=== PATIENT | female | born 1960 | race Caucasian/White ===

== ENCOUNTER 2021-01-14 12:25 | Outpatient (REF) | payer OTHER, SELFPAY ==
[2021-01-14 14:00] LABS: MANUAL DIFF FLAG NO
[2021-01-14 14:03] LABS: Basophils Absolute Auto 0.1 X10*3/uL (0.0-0.2); Basophils Percent Auto 0.8 % (0-2); Eosinophils Absolute Auto 0.5 X10*3/uL (0.0-0.4); Eosinophils Percent Auto 4.2 % (0-4); Hematocrit 45.2 % (37-47); Hemoglobin 14.8 g/dl (12.0-16.0); Imm Gran Abs Auto 0.04 X10*3/uL (0.00-0.03); Imm Gran Pct Auto 0.3 % (0.0-0.4); Lymphocytes Absolute Auto 4.8 X10*3/uL (1.2-4.9); Lymphocytes Percent Auto 38.6 % (20-40); Mean Corpuscular HGB Conc 32.7 g/dl (31.0-35.0); Mean Corpuscular Hemoglobin 30.5 pg (27.0-33.0); Mean Platelet Volume 11.2 fL (9.4-12.3); Monocytes Absolute Auto 1.2 X10*3/uL (0.1-1.2); Monocytes Percent Auto 9.9 % (2-11); Neutrophils Absolute Auto 5.8 X10*3/uL (2.0-8.3); Neutrophils Percent Auto 46.2 % (45-73); Platelet Count 301 X10*3/uL (160-400); Red Blood Count 4.86 X10*6/uL (4.20-5.50); Red Cell Distribution Width 12.8 % (11.0-16.0); White Blood Count 12.5 X10*3/uL (4.8-10.8)
[2021-01-14 14:52] LABS: Alanine Aminotransferase 33 U/L (0-31); Albumin Level 4.3 g/dL (3.5-5.0); Alkaline Phosphatase 101 U/L (39-117); Amylase 70 U/L (28-100); Anion Gap 17 (12-20); Aspartate Amino Transferase 26 U/L (5-31); Bilirubin Total 0.8 mg/dL (0.0-1.0); Blood Urea Nitrogen 21 mg/dL (9-16); Calcium 9.8 mg/dL (8.4-10.2); Carbon Dioxide 29 mmol/L (22-29); Chloride 99 mmol/L (96-108); Estimated Glomerular Filt Rate > 60; Glucose Random 98 mg/dL (60-115); Lipase 36 U/L (8-78); Potassium 3.9 mmol/L (3.3-5.1); Sodium 141 mmol/L (135-145); Total Protein 7.4 g/dL (6.5-8.0)
== END 2021-01-14 12:26 | disposition home or self-care (01) ==
LOC: HO.HMGCLDS 12:25
PROVIDERS: PCP Internal Medicine; Visit Provider Nurse Practitioner Family
DX: R10.10 Upper abdominal pain, unspecified (principal)
CPT/HCPCS: 36415; 80053; 82150; 83690; 85025

== ENCOUNTER 2021-02-25 07:50 | Outpatient (REF) | payer OTHER, SELFPAY ==
--- NOTE | ~2021-02-25 | US_ITS ---
EXAMINATION: US ABDOMEN COMPLETE CLINICAL INFORMATION: Upper abdominal pain. COMPARISON: Ultrasound abdomen 06/27/2012. TECHNIQUE: Real-time imaging of the abdominal viscera. FINDINGS: PANCREAS: Most of the pancreas is obscured by overlying gas. ABDOMINAL AORTA: The proximal abdominal aorta is normal in caliber. The mid and distal abdominal aorta is not visualized. INFERIOR VENA CAVA: Not seen. LIVER: The liver is enlarged and size The liver is diffusely echogenic. Normal hepatic contour seen. No focal hepatic lesion. There is no intrahepatic biliary duct dilatation seen. GALLBLADDER: Surgically absent. COMMON BILE DUCT: Normal in caliber measuring 0.3 cm in diameter. RIGHT KIDNEY: There is an anechoic cyst in the mid pole lateral cortex measuring 3.0 x 3.3 x 3.2 cm. No additional lesions are seen. No hydronephrosis or renal calculi. The kidney measures 10.0 cm in maximum dimension. LEFT KIDNEY: Normal. No hydronephrosis or renal calculi. The kidney measures 9.3 cm in maximum dimension. SPLEEN: Normal. The spleen measures 7.1 cm in maximum dimension. FREE FLUID: None. US/US abdomen complete IMPRESSION: Hepatomegaly with hepatic steatosis. No focal lesion seen. Right renal cyst. The rest of the abdominal ultrasound is unremarkable.
--- NOTE | ~2021-02-25 | FL_ITS ---
EXAMINATION: FL GI SERIES CLINICAL INFORMATION: Upper abdominal pain. COMPARISON: None TECHNIQUE: Routine upper GI air-contrast study was performed. FINDINGS: Following oral administration of thick barium and effervescent granules, there is normal propagation of the bolus from the oral cavity through the upper esophagus into the stomach without any evidence of obstruction, narrowing or stricture. The course, caliber and peristalsis of the stomach and the dorsal bulb are normal. There is mild gastroesophageal reflux without hiatal hernia and in the prone lying position. Incidental finding of cholecystectomy. FLUOROSCOPY TIME: 2.1 minutes DOSE AREA PRODUCT: 34.579 uGy-m2 (microgray-meter squared) FL/FL upper GI series IMPRESSION: Mild gastroesophageal reflux without hiatal hernia. The rest of upper GI exam is unremarkable.
== END 2021-02-25 07:51 | disposition home or self-care (01) ==
LOC: HO.US 07:50
PROVIDERS: Visit Provider Internal Medicine
DX: R10.10 Upper abdominal pain, unspecified (principal)
CPT/HCPCS: 74240; 76700

== ENCOUNTER 2021-10-02 20:11 | Emergency (ER) | payer OTHER, SELFPAY ==
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
[2021-10-02 21:19] VITALS: BP 176/105; PULSE 88; RESP 20; TEMP 36.9; O2SAT 96; BMI 31.3
[2021-10-02] MEDS: Acetaminophen 325 MG TABLET 650 MG PO (21:26)
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
[2021-10-03 01:08] VITALS: BP 182/90; PULSE 70; RESP 20; TEMP 36.6; O2SAT 98
--- NOTE | 2021-10-03 01:32 | PC.NURSE ---
PT REFUSED MEDICATION AT THIS TIME RETURNED TO [facility] BECAUSE SHE HAS TO DRIVE.
== END 2021-10-03 01:34 | disposition home or self-care (01) ==
PROVIDERS: Emergency Provider Internal Medicine; PCP Internal Medicine
DX: Z04.1 Encounter for examination and observation following transport accident (principal); M62.830 Muscle spasm of back
CPT/HCPCS: 71046; 99283; 99284

== ENCOUNTER 2021-10-06 16:42 | Outpatient (REF) | payer OTHER, SELFPAY ==
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
== END 2021-10-06 16:43 | disposition home or self-care (01) ==
LOC: HO.XRAY 16:42
PROVIDERS: PCP Internal Medicine; Visit Provider Nurse Practitioner Family
DX: M54.9 Dorsalgia, unspecified (principal); M25.511 Pain in right shoulder; M89.8X1 Other specified disorders of bone, shoulder; M54.2 Cervicalgia
CPT/HCPCS: 72040; 72072; 73010; 73030

== ENCOUNTER 2022-01-26 15:26 | Outpatient (REF) | payer OTHER, SELFPAY ==
--- NOTE | ~2022-01-26 | XR_ITS ---
EXAMINATION: XR LUMBOSACRAL SPINE CLINICAL INFORMATION: Low back pain COMPARISON: None TECHNIQUE: Three views of the lumbosacral spine. FINDINGS: Bone alignment is normal. No fracture or dislocation is seen. Disc spaces are normal. 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 There is atherosclerotic disease. XR/XR lumbar spine 2-3V IMPRESSION: Mild degenerative changes.
== END 2022-01-26 15:27 | disposition home or self-care (01) ==
LOC: HO.XRAY 15:26
PROVIDERS: PCP Internal Medicine; Visit Provider Nurse Practitioner Family
DX: M54.50 Low back pain, unspecified (principal)
CPT/HCPCS: 72100

== ENCOUNTER → 2022-02-19 16:03 | Outpatient (BNVA) | payer OTHER, SELFPAY | PROVIDERS: PCP Internal Medicine; Visit Provider Nurse Practitioner Family | DX: Z13.89 Encounter for screening for other disorder (principal) ==

== ENCOUNTER 2022-07-03 09:10 | Outpatient (REF) | payer OTHER, SELFPAY ==
--- NOTE | ~2022-07-03 | MM_ITS ---
EXAMINATION: MM SCREENING DIGITAL BREAST TOMOSYNTHESIS, BILATERAL CLINICAL INFORMATION: Screening. Asymptomatic. The lifetime risk of breast cancer based on the Tyrer-Cuzick Model is 5%. COMPARISON: Mammography: 09/05/2019, 02/25/2017, 12/06/2015 TECHNIQUE: Digital breast tomosynthesis is performed in both the craniocaudal and mediolateral oblique views along with computer-aided detection (CAD). Synthesized 2D images are generated from the tomosynthesis. FINDINGS: There are scattered areas of fibroglandular density (ACR BI-RADS breast composition Category b). There are no significant masses, abnormal calcifications, or other abnormalities. Parenchymal pattern is similar to prior studies. There is no developing density or architectural abnormality. The axilla and skin contours are unremarkable. No significant changes. MM/MM tomosynthesis screening BI IMPRESSION: No mammographic evidence of malignancy. ASSESSMENT: BI-RADS 1: Negative RECOMMENDATION: Routine annual mammography screening. This patient's information was entered into a reminder system with a target due date for their next mammogram.
== END 2022-07-03 09:11 | disposition home or self-care (01) ==
LOC: HO.MAMMO 09:10
PROVIDERS: PCP Internal Medicine; Visit Provider Internal Medicine
DX: Z12.31 Encounter for screening mammogram for malignant neoplasm of breast (principal)
CPT/HCPCS: 77063; 77067

== ENCOUNTER → 2022-12-16 15:30 | Outpatient (BNVA) | payer OTHER, SELFPAY | PROVIDERS: PCP Internal Medicine; Visit Provider Internal Medicine | DX: Z13.89 Encounter for screening for other disorder (principal) ==

== ENCOUNTER 2022-12-28 12:56 | Outpatient (REF) | payer OTHER, SELFPAY ==
--- NOTE | 2022-12-28 18:09 | PFT_ITS ---
INDICATION: COPD. SPIROMETRY: FEV1 to FVC 80% with an FEV1 1.46 L, which is 79% predicted and FVC of 1.79 L, which is 74% predicted. There was a significant response to bronchodilator is noted. Maximum voluntary ventilation is 75% predicted with expiratory reserve volume of 4% predicted. DIFFUSION CAPACITY: DLCO 94% predicted. COMPARISONS: None. INTERPRETATION: No obstructive ventilatory defects. The patient did have a significant response to bronchodilators noted. In addition to, there is a moderate decrease in maximum voluntary ventilation secondary to deconditioning, although cannot rule out neuromuscular conditions. The patient does have a restrictive ventilatory defect consistent with mild restrictive lung disease. Again, neuromuscular condition cannot be ruled out. Parenchymal lung condition could also be considered. Normal diffusing capacity. Clinical correlation is warranted. Riley Duffy MD MR/MODL / [id number]
== END 2022-12-28 12:57 | disposition home or self-care (01) ==
LOC: HO.RESP 12:56
PROVIDERS: PCP Internal Medicine; Visit Provider Internal Medicine
DX: J44.9 Chronic obstructive pulmonary disease, unspecified (principal); Z87.891 Personal history of nicotine dependence
CPT/HCPCS: 94060; 94727; 94729

== ENCOUNTER → 2023-01-25 15:29 | Outpatient (BNVA) | payer OTHER, SELFPAY | PROVIDERS: PCP Internal Medicine; Visit Provider Nurse Practitioner Family | DX: Z13.89 Encounter for screening for other disorder (principal) ==

== ENCOUNTER → 2023-02-23 15:54 | Outpatient (BNVA) | payer OTHER, SELFPAY | PROVIDERS: PCP Internal Medicine; Visit Provider Internal Medicine | DX: Z13.89 Encounter for screening for other disorder (principal) ==

== ENCOUNTER 2023-03-09 06:55 | Outpatient (REF) | payer OTHER, SELFPAY ==
[2023-03-09 07:10] LABS: MANUAL DIFF FLAG NO
[2023-03-09 07:21] LABS: Basophils Absolute Auto 0.1 X10*3/uL (0.0-0.2); Basophils Percent Auto 0.8 % (0-2); Eosinophils Absolute Auto 0.9 X10*3/uL (0.0-0.4); Hematocrit 41.8 % (37.0-47.0); Hemoglobin 13.9 g/dl (12.0-16.0); Imm Gran Abs Auto 0.03 X10*3/uL (0.00-0.03); Imm Gran Pct Auto 0.2 % (0.0-0.4); Lymphocytes Absolute Auto 4.9 X10*3/uL (1.2-4.9); Mean Corpuscular HGB Conc 33.3 g/dl (31.0-35.0); Mean Corpuscular Hemoglobin 30.3 pg (27.0-33.0); Mean Corpuscular Volume 91.1 fL (80.0-98.0); Monocytes Percent Auto 8.1 % (2-11); Neutrophils Absolute Auto 5.4 x10*3/uL (2.0-8.3); Neutrophils Percent Auto 43.9 % (45-73); Platelet Count 319 X10*3/uL (160-400); Red Blood Count 4.59 X10*6/uL (4.20-5.50); Red Cell Distribution Width 13.6 % (11.0-16.0); White Blood Count 12.3 X10*3/uL (4.8-10.8)
[2023-03-09 08:00] LABS: Alanine Aminotransferase 47 U/L (0-31); Albumin Level 3.9 g/dL (3.5-5.0); Alkaline Phosphatase 111 U/L (39-117); Anion Gap 13 (12-20); Aspartate Amino Transferase 34 U/L (5-31); Bilirubin Total 0.5 mg/dL (0.0-1.0); Blood Urea Nitrogen 19 mg/dL (9-16); Calcium 9.3 mg/dL (8.4-10.2); Carbon Dioxide 29 mmol/L (22-29); Chloride 103 mmol/L (96-108); Cholesterol 269 mg/dL; Estimated Glomerular Filt Rate 58; Glucose Fasting 128 mg/dL (60-99); HDL Cholesterol 44 mg/dL; Iron 103 mcg/dL (30-160); LDL Cholesterol Calculated 165 mg/dl; Percent Iron Saturation 45 % (15-50); Potassium 3.7 mmol/L (3.3-5.1); Sodium 141 mmol/L (135-145); Total Iron Binding Capacity 228 mcg/dL (228-428); Total Protein 7.1 g/dL (6.5-8.0); Triglycerides 300 mg/dL; Unsaturated Iron Binding 125 ug/dL
[2023-03-09 08:31] LABS: Folate > 20.0 ng/mL (> or = 4.0); Thyroid Stimulating Hormone 1.81 uIU/mL (0.32-4.0); Vitamin B12 1085 pg/mL (200-900); Vitamin D 25-OH Total 51.8 ng/mL (>30)
== END 2023-03-09 06:56 | disposition home or self-care (01) ==
LOC: HO.LAB 06:55
PROVIDERS: PCP Internal Medicine; Visit Provider Internal Medicine
DX: D64.9 Anemia, unspecified (principal); E78.5 Hyperlipidemia, unspecified; I10 Essential (primary) hypertension; E66.9 Obesity, unspecified; Z68.32 Body mass index [BMI] 32.0-32.9, adult; E53.8 Deficiency of other specified B group vitamins; E55.9 Vitamin D deficiency, unspecified
CPT/HCPCS: 36415; 80053; 80061; 82306; 82607; 82746; 83540; 84443; 85025

== ENCOUNTER → 2023-06-03 14:48 | Outpatient (BNV) | payer OTHER, SELFPAY | PROVIDERS: PCP Internal Medicine; Referring Provider Internal Medicine; Visit Provider Internal Medicine | DX: D72.829 Elevated white blood cell count, unspecified (principal) | CPT/HCPCS: 99204; 99213 ==

== ENCOUNTER 2023-06-07 13:36 | Outpatient (REF) | payer OTHER, SELFPAY ==
[2023-06-08 11:59] LABS: CT PCR NOT DETECTED (Not Detect.); NG PCR NOT DETECTED (Not Detect.)
[2023-06-09 20:48] LABS: HPV mRNA E6/E7 rflx Not Detected (Not Detected)
== END 2023-06-07 13:37 | disposition home or self-care (01) ==
LOC: HO.LNP 13:36
PROVIDERS: PCP Internal Medicine; Visit Provider Advanced Practice Midwife
DX: Z01.419 Encounter for gynecological examination (general) (routine) without abnormal findings (principal); Z11.51 Encounter for screening for human papillomavirus (HPV); Z20.2 Contact with and (suspected) exposure to infections with a predominantly sexual mode of transmission
CPT/HCPCS: 0353U; 87624; 88142

== ENCOUNTER 2023-06-07 13:36 | Outpatient (AMB) | payer OTHER, SELFPAY ==
--- NOTE | 2023-06-07 13:39 | MHC.OFFVIS ---
Intake Vital Signs 06/07/23 13:40 Height 4 ft 10 in Weight 164 lb BMI 34.3 BP 116/74 Intake Visit Reasons: New patient Annual Intake Note: The patient agreed to use of a medical investigator during this encounter. Scribed for SOPHY James by Theresa Patricia medical investigator, on 06/07/2023 at 1:57 pm EST. Family Reunification Specialist Required: No Information Interpreted: non-clinical & clinical Hot Dipper: Hot Dipper Present (Sierra) Allergies Anesthetics - Amide Type - Select A Allergy (Severe, Verified 06/07/23 13:45) Redness of Skin lisinopril Allergy (Unknown, Verified 06/07/23 13:45) pain in thighs Is last menstrual period known: No Post menopausal: Yes Patient : No HPI HPI Comments History of Present Illness Details She is a new patient postmenopausal woman presenting for annual exam. Patient admits she tries to eat a healthy diet including Calcium and Vitamin D. She stays active with exercise. Occasionally sexually active. Denies PMB, vaginal itching and irritation. STD screening offered; she accepts. Denies family hx of breast, colon and ovarian cancer. Last pap smear 08/15/14. Last mammogram 07/03/22. Not UTD on colonoscopy but is planning to schedule. PFSH Medical History Allergic rhinitis Benign essential HTN Low kidney function Sciatic nerve pain Smoking history Surgical History History of section History of cholecystectomy History of tonsillectomy History of tubal ligation Hx of colonoscopy Family History Father Diabetes Hypertension CVD (cardiovascular disease) Mother Diabetes Hypertension CAD (coronary artery disease) Stroke Maternal Aunt Myocardial infarction Paternal Aunt Cancer Paternal Uncle Cancer Son No problems noted. Daughter No problems noted. Social History Household Members: None Housing: House Alcohol intake: current Alcohol intake frequency: a few times a month Alcohol type: beer Patient Tobacco Use Status: Former Tobacco user Tobacco use type: Cigarette e-Cigarette/Vaping Use: Never Used Second Hand Smoke Exposure: No Substance Use Type: Marijuana service: No Current occupational status: employed Current occupational exposures/hazards: No Cognitive needs: No Hearing needs: No Vision needs: Yes Female Reproductive History Menstrual Duration of menses: other control method: permanent sterilization Permanent Sterilization: BTL Total pregnancies: 3 Full term: 2 Number of Living Children: 2 Ab induced: 1 (stillborn @6months) Date of last pap smear: 08/15/14 (neg) Date of Mammogram: 07/03/22 (Birad 1) Physical Exam Vital Signs: Last Vital Signs BP 116/74 06/07/23 13:40 BMI result Body Mass Index 34.3 Const General: cooperative, healthy appearing, no acute distress, well developed and alert Orientation/consciousness: patient oriented x3 HEENT Head: Yes normal to inspection Eyes General: appearance normal, both eyes and all related structures Neck Neck: Yes normal visual inspection Thyroid: Thyroid normal Chest Chest palpation & inspection: normal inspection of the chest Breast/axilla inspection: normal inspection of the breasts (no puckering, dimpling, peau de orange, retraction, discharge, masses) Breast/axilla palpation: normal palpation of the breasts Resp Effort & Inspection: normal respiratory effort GI Inspection: Yes normal to inspection Palpation (GI): Soft to palpation (to palpation) Rectal Exam - Female: deferred General: Yes bladder normal to inspection External Female Exam: normal external appearance and normal appearance of the urethra Speculum Exam - Vagina: normal appearance of the vagina, normal palpation and vagina atrophic Speculum Exam - Cervix: normal appearance of the cervix and normal palpation Bimanual exam- vagina & uterus: normal palpation and normal palpation Bimanual Exam- Adnexa, other: normal adnexae and no masses Skin General skin exam: no rashes or lesions noted Neuro General: patient oriented x3 Cognition (Neuro): normal cognition Extrem General: Yes normal to inspection Psych Attitude: cooperative Thought process: Normal thought process present Assessment & Plan Assessment & Plan (1) Encounter for well woman exam: Code(s): Z01.419 - Encounter for gynecological examination (general) (routine) without abnormal findings Plan: Discussed: Current recommendations for pap smears per ASCCP guidelines. Breast awareness and periodic self breast exams. Encouraged yearly mammograms. Maintaining a healthy lifestyle including a well balanced diet including Calcium and Vitamin D and routine exercise. Contact office with any PMB. All of her questions and concerns were addressed to the best of my ability RTO in 1 year for AG. (2) Potential exposure to STD: Code(s): Z20.2 - Contact with and (suspected) exposure to infections with a predominantly sexual mode of transmission Plan: BV testing and GC/CT panel done today. Await results and treat accordingly. Orders: Orders CT NG by PCR Today Z20.2 - Contact with and (suspected) exposure to infections with a predominantly sexual mode of transmission Pap Smear Today Z01.419 - Encounter for gynecological examination (general) (routine) without abnormal findings Quality Reporting (2019) Adult ([facility] 138/12/15/68) Smoking risk assessment performed?: Yes Patient Tobacco Use Status: Former Tobacco user Coding Level of Care Code New Pt Prev Care 40-64y(81183) Diagnoses Encounter for well woman exam Z01.419 Potential exposure to STD Z20.2
[2023-06-07 13:40] VITALS: BP 116/74; BMI 34.3
== END 2023-06-07 14:08 | disposition home or self-care (01) ==
LOC: HO.HWS 13:36
PROVIDERS: PCP Internal Medicine; Visit Provider Advanced Practice Midwife
DX: Z01.419 Encounter for gynecological examination (general) (routine) without abnormal findings (principal); Z20.2 Contact with and (suspected) exposure to infections with a predominantly sexual mode of transmission
CPT/HCPCS: 99397

== ENCOUNTER 2023-06-09 17:00 | Outpatient (RCR) | payer OTHER, SELFPAY ==
--- NOTE | 2023-05-13 12:28 | MHC.PT.EP ---
[facility] [place] Office [place] [facility] [place] Office [address] David Magana [address] [phone] F: [phone] F: [phone] F: [phone] F: [phone] Physical Therapy Plan of Care Date of Evaluation: Date of Surgery: Diagnosis: lumbar radiculopathy (R) Assessment: Patient is a pleasant 63 y.o. female who is referred to PT by Félix Lance PA-C with Dx of (RIGHT) lumbar radiculopathy. Patient symptoms respond well to extension bias with centralization. Patient impairments include pain, radicular sxs, limited AROM, weakness, antalgic gait. Patient current functional limitations are prolonged sitting, prolonged walking, sleep is difficult (sleeps on L side), bend, squat, putting on pants, standing to shower. Patient will benefit from skilled PT to address aforementioned impairments and functional limitations to meet established goals. Frequency and Duration: The patient will be seen 2x/week for 4 weeks Short Term Goals: 2 weeks Patient demonstrates consistency and independence with HEP to self manage symptoms. Patient is able to perform and demonstrate understanding of centralization of lumbar radicular symptoms with postures and exercises. Enterprise Application Developer Goals: 4 weeks Patient presents with increased lumbar spine AROM flexion 90 degrees to restore mobility to squat to low chair. Patient presents with increased bilateral hip flexion stretch 5/5 to be able to shower without difficulty. Treatment Plan: Modalities to reduce pain, spasms and effusion. Manual therapy to restore motion and function. Therapeutic exercise to improve strength and flexibility. Neuromuscular re-education for posture and balance. Therapeutic activities to return to functional activities of daily living. Electronically signed by: Keren Butcher, PT, DPT Please sign and return to therapist. Thank you for your referral.
--- NOTE | 2023-08-02 12:06 | MHC.PT.DC ---
[facility] [place] Office [place] Office [place] Office [address] David Magana [address] [phone] F: [phone] F: [phone] F: [phone] F: [phone] Physical Therapy Discharge Report Diagnosis: lumbar radiculopathy (R) Date of Surgery: Date of Evaluation: 05/12/23 Date of Discharge: 08/02/23 Treatments to Date: 3 Cancellations to Date: 4 No Shows to Date: 0 Discharge Status: Improved Function Independent with HEP Discharge Summary: Patient was last treated in PT on 06/09/23. Assessment from that date reads, She has been consistent with both HEP and postural/positional changes at work to avoid stress to low back and discs. She persists with hypomobility throughout lumbar spine, more on R that improves with both moist heat and manual therapy mobilizations. May discharge next session if she continues to improve without sxs and feels she can be independent with self and home management. She is therefore discharged from PT at this time. Electronically signed by: Keren Butcher, PT, DPT Please sign and return to therapist. Thank you for your referral.
== END 2023-08-02 12:07 | disposition home or self-care (01) ==
LOC: HO.PT 17:00
PROVIDERS: PCP Internal Medicine; Visit Provider Physician Assistant
DX: M51.9 Unspecified thoracic, thoracolumbar and lumbosacral intervertebral disc disorder (principal); M54.16 Radiculopathy, lumbar region
CPT/HCPCS: 97110; 97140; 97161

== ENCOUNTER 2023-06-14 17:02 | Outpatient (AMB) | payer OTHER, SELFPAY ==
--- NOTE | 2023-06-14 17:04 | A.OFFPC_ITS ---
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: No Accompanied by: Self / Same As Patient Allergies Anesthetics - Amide Type - Select A Allergy (Severe, Verified 06/14/23 17:12) Redness of Skin lisinopril Allergy (Unknown, Verified 06/14/23 17:12) pain in thighs Medication List - Last Reconciled 06/14/23 by Terri Manuel MD albuterol sulfate 2.5 mg (3 mL) PO Q4-6H PRN atenolol 50 mg PO DAILY atorvastatin 20 mg PO BEDTIME 90 days fexofenadine (Abimbola Allergy) 60 mg PO Q12H hydrochlorothiazide 25 mg PO DAILY 90 days hydrocortisone 1% (Anti-Itch (hydrocortisone)) 1 appl topical TID PRN 30 days nebulizers (AeroEclipse II Nebulizer) As directed Tobacco use date assessed: 11/09/22 Fall risk assessment: No Falls in past year Last assessed Fall Risk: 06/14/23 Dental Screening Dental Screen Date: 06/14/23 Did you have a dental visit in the last 12 months?: No Did you have a dental problem in the last 6 months where you did not have access to dental care?: No Was dental information given to patient?: Patient has dentist HPI HPI Comments History of Present Illness Details This is a 63-year-old female with hypertension, allergic rhinitis, chronic kidney disease and mixed hyperlipidemia that comes today for follow-up on recent labs. Blood pressure elevated today and will be recheck in 3 weeks by nurse navigator. Cholesterol and triglycerides well controlled with medications. Allergic rhinitis stable with antihistamines as needed. Her GFR has decreased and now has chronic kidney disease stage 3 and will be referred to Nephrology. Was advised to follow-up with nephrology. PFSH Medical History Allergic rhinitis Benign essential HTN Low kidney function Sciatic nerve pain Smoking history Surgical History History of section History of cholecystectomy History of tonsillectomy History of tubal ligation Hx of colonoscopy Family History Father Diabetes Hypertension CVD (cardiovascular disease) Mother Diabetes Hypertension CAD (coronary artery disease) Stroke Maternal Aunt Myocardial infarction Paternal Aunt Cancer Paternal Uncle Cancer Son No problems noted. Daughter No problems noted. Social History Household Members: None Housing: House Alcohol intake: current Alcohol intake frequency: a few times a month Alcohol type: beer Patient Tobacco Use Status: Former Tobacco user Tobacco use type: Cigarette e-Cigarette/Vaping Use: Never Used Second Hand Smoke Exposure: No Substance Use Type: Marijuana service: No Current occupational status: employed Current occupational exposures/hazards: No Cognitive needs: No Hearing needs: No Vision needs: Yes Questionnaire Thrive Questionnaire Date Thrive assessed: 11/09/22 RIYA-7 AMB Questionnaire RIYA-7 Date RIYA - 7 assessed: 11/09/22 Source: Developed by Drs. Leoncio Fuentes, Laura Negrete, Dusty Matias and colleagues, with an educational greta from [employer]. Review of Systems Const All systems reviewed & are unremarkable except as noted in HPI and below Eyes Reports no additional complaints, Denies change in vision and Denies other visual disturbances Card Denies chest pain at rest, Denies chest pain with activity, Denies edema, Denies irregular heart rhythm, Denies claudication, Denies dyspnea, Denies dyspnea on exertion, Denies orthopnea, Denies paroxysmal nocturnal dyspnea and Denies slow heart rate Resp Denies cough, Denies dyspnea and Denies dyspnea on exertion GI Denies abdominal pain, Denies change in bowel habits, Denies excessive flatus, Denies nausea and Denies vomiting Denies urinary incontinence, Denies urinary hesitancy and Denies urinary urgency Musc Denies atrophy, Denies deformity and Denies limited range of motion Skin/Breast Denies bleeding lesions, Denies changing lesions and Denies rash Physical exam (Primary Care) Vital Signs: Last Vital Signs BP 148/72 H 06/14/23 17:06 BMI result Body Mass Index 33.6 Tobacco/Smoking Status: Tobacco use Status Tobacco use date assessed 11/09/22 06/14/23 17:06 Patient Tobacco Use Status Former Tobacco user 06/14/23 17:06 Tobacco use type Cigarette 06/14/23 17:06 e-Cigarette/Vaping Use Never Used 06/14/23 17:06 Thrive Assessment: Date of Thrive Assessment Date Thrive assessed 11/09/22 06/14/23 17:06 Eyes General: appearance normal, both eyes and all related structures Eyelids: Yes eyelids normal Conjunctivae: conjunctivae normal Neck Neck: Yes normal visual inspection and Yes supple Resp Effort & Inspection: normal respiratory effort Auscultation: clear to auscultation bilaterally Cardio Jugular venous distension: no JVD Rate: regular rate Rhythm: regular rhythm Heart sounds: S1 normal heart sound present and S2 normal heart sound present Extrem General: Yes full ROM Assessment and Plan Assessment & Plan (1) Essential hypertension: Code(s): I10 - Essential (primary) hypertension Plan: Continue atenolol and hydrochlorothiazide. Blood pressure goal is equal or less than 130/80. (2) CKD (chronic kidney disease) stage 3, GFR 30-59 ml/min: Code(s): N18.30 - Chronic kidney disease, stage 3 unspecified Plan: Avoid NSAIDs. Follow-up with nephrology. (3) Mixed hyperlipidemia: Code(s): E78.2 - Mixed hyperlipidemia Plan: Continues statin. (4) Allergic rhinitis: Comment: MILD, SEASONAL, WELL CONTROLLED AT THIS TIME. TX: MAY USE FEXOFENADINE 60 MG Q.12 HOURS P.R.N. Code(s): J30.9 - Allergic rhinitis, unspecified Plan: Continue antihistamines as needed. Orders: Referrals Nephrology Referral N18.30 - Chronic kidney disease, stage 3 unspecified Coding Level of Care Code Est Pt Level 4 (33297) Diagnoses Essential hypertension I10 CKD (chronic kidney disease) stage 3, GFR 30-59 ml/min N18.30 Mixed hyperlipidemia E78.2 Allergic rhinitis J30.9 Time Spent (min) 23
[2023-06-14 17:06] VITALS: BP 148/72; BMI 33.6
[2023-06-14 17:25] VITALS: BP 140/70
== END 2023-06-14 17:20 | disposition home or self-care (01) ==
PROVIDERS: PCP Internal Medicine; Visit Provider Internal Medicine
DX: I12.9 Hypertensive chronic kidney disease with stage 1 through stage 4 chronic kidney disease, or unspecified chronic kidney disease (principal); N18.30 Chronic kidney disease, stage 3 unspecified; E78.2 Mixed hyperlipidemia; J30.9 Allergic rhinitis, unspecified
CPT/HCPCS: 99214

== ENCOUNTER 2023-07-30 08:55 | Outpatient (REF) | payer OTHER, SELFPAY | END 2023-07-30 08:56 | disposition home or self-care (01) | LOC: HO.MAMMO 08:55 | PROVIDERS: Visit Provider Internal Medicine | DX: Z12.31 Encounter for screening mammogram for malignant neoplasm of breast (principal) | CPT/HCPCS: 77063; 77067 ==

== ENCOUNTER → 2023-07-30 09:00 | Outpatient (BNV) | payer OTHER, SELFPAY | PROVIDERS: Visit Provider Radiology Diagnostic Radiology | DX: Z12.31 Encounter for screening mammogram for malignant neoplasm of breast (principal) | CPT/HCPCS: 77063; 77067 ==

== ENCOUNTER 2023-09-06 15:59 | Outpatient (AMB) | payer OTHER, SELFPAY ==
[2023-09-06 16:00] VITALS: BP 132/78; PULSE 62; O2SAT 98; BMI 32.6
--- NOTE | 2023-09-06 16:00 | MHC.OFFVIS ---
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 Allergies Anesthetics - Amide Type - Select A Allergy (Severe, Verified 09/06/23 16:18) Redness of Skin lisinopril Allergy (Unknown, Verified 09/06/23 16:18) pain in thighs Medication List - Last Reconciled 09/06/23 by Vivian Egan MD albuterol sulfate 2.5 mg (3 mL) PO Q4-6H PRN atenolol 50 mg PO DAILY atorvastatin 20 mg PO BEDTIME 90 days hydrochlorothiazide 25 mg PO DAILY 90 days hydrocortisone 1% (Anti-Itch (hydrocortisone)) 1 appl topical TID PRN 30 days nebulizers (AeroEclipse II Nebulizer) As directed Do you need a note to return to daycare/school/sports/work: No HPI copd HPI Details THIS 63 YEARS OLD VERY PLEASANT FEMALE IS HERE FOR 6 MONTHS FOLLOW-UP FOR HER BRONCHIAL ASTHMA. SHE HAS BEEN VERY STABLE WITHOUT ANY INCREASE HER SYMPTOMS. SHE HAS ONLY INTERMITTENT COUGH AND WHEEZING, WHICH IS CONTROLLED WITH USE OF ALBUTEROL IN THE NEBULIZER OR ALBUTEROL HFA. SHE NEEDS TO USE THE NEBULIZER OR HFA ONLY ONCE IN A WHILE ABOUT 2 OR 3 TIMES A WEEK SHE DENIES GETTING SHORT OF BREATH ON HER USUAL DAY-TO-DAY ACTIVITY OR EVEN CLIMBING 1 FLIGHT OF STAIRS. [facility] Medical History (Updated 09/06/23 @ 16:23 by Vivian Egan MD) Asthma Low kidney function Allergic rhinitis Smoking history Sciatic nerve pain Benign essential HTN Surgical History Hx of colonoscopy History of section History of tubal ligation History of cholecystectomy History of tonsillectomy Family History Father Diabetes Hypertension CVD (cardiovascular disease) Mother Diabetes Hypertension CAD (coronary artery disease) Stroke Maternal Aunt Myocardial infarction Paternal Aunt Cancer Paternal Uncle Cancer Son No problems noted. Daughter No problems noted. Social History Household Members: None Housing: House Alcohol intake: current Alcohol intake frequency: a few times a month Alcohol type: beer Patient Tobacco Use Status: Former Tobacco user Tobacco use type: Cigarette e-Cigarette/Vaping Use: Never Used Second Hand Smoke Exposure: No Substance Use Type: Marijuana service: No Current occupational status: employed Current occupational exposures/hazards: No Cognitive needs: No Hearing needs: No Vision needs: Yes Review of Systems Const All systems reviewed & are unremarkable except as noted in HPI and below Eyes Reports no additional complaints ENT Reports no additional complaints and Reports neck pain Card Denies chest pain, Denies irregular heart rhythm and Denies leg edema Resp Reports as per HPI GI Reports no additional complaints Reports no additional complaints Musc Reports back pain and Reports neck pain Skin/Breast Reports system reviewed and no additional complaints, except as documented Neuro Reports no additional complaints Psych Reports no additional complaints Endo Reports no additional complaints Demarcus/Lymph Reports no additional complaints Aller/Immun Reports no additional complaints Physical Exam Const General: healthy appearing, comfortable, no acute distress, alert and awake Orientation/consciousness: patient oriented x3 HEENT Head: Yes normal to inspection General nose exam: No nasal polyps present, mucous membranes and turbinates abnormal (SLIGHTLY HYPERTROPHIED) and No nasal discharge present Face and sinus: Yes sinuses nontender Mouth: oropharynx normal Throat: Yes posterior oropharynx normal Eyes General: appearance normal, both eyes and all related structures Neck Neck: Yes normal visual inspection, Yes no lymphadenopathy, Yes trachea midline and Yes no JVD Thyroid: Thyroid normal Chest Other: INCREASED AP DIAMETER Chest palpation & inspection: normal inspection of the chest, normal palpation of entire chest wall and no tenderness Resp Other: PERCUSSION NOTE IS RESONANT. BREATH SOUNDS ARE SLIGHTLY DISTANT . NO CREPITATIONS OR WHEEZES ARE HEARD. Cardio Palpation: normal PMI Rate: regular rate Rhythm: regular rhythm Heart sounds: Gallop heart sound present and Murmur heart sound present Peripheral pulses: Peripheral pulses 2+ throughout GI Palpation (GI): Soft to palpation, Tenderness to palpation present (GI), No hepatosplenomegaly present and Palpable mass present Auscultation: normal bowel sounds Back/Spine/Pelvis Thoracic/Lumbar Spine: thoracic and lumbar spine normal to inspection and thoraco-lumbar ROM limited Skin General skin exam: no rashes or lesions noted Neuro General: patient oriented x3 and no focal motor deficits Cranial nerves: Yes CN's II-XII intact bilaterally Extrem General: Yes normal to inspection, Yes no clubbing, cyanosis or edema and Yes no calf tenderness Psych Appearance: grossly normal and well kempt Speech and movement: Normal speech and movement present Assessment & Plan Assessment & Plan (1) Allergic rhinitis: Comment: MILD, SEASONAL, WELL CONTROLLED AT THIS TIME. TX: MAY USE FEXOFENADINE 60 MG Q.12 HOURS P.R.N. Code(s): J30.9 - Allergic rhinitis, unspecified (2) Asthma: Comment: MILD INTERMITTENT. TX: ALBUTEROL HFA 2 PUFFS Q 4-6 HOURS P.R.N. OR ALBUTEROL 2.5 MG SOLUTION IN THE NEBULIZER Q 4-6 HOURS P.R.N. SHE DOES NOT NEED TO USE ANY CONTROLLER AGENTS. Code(s): J45.909 - Unspecified asthma, uncomplicated (3) Smoking history: Comment: PATIENT HAS LONG-STANDING HISTORY OF SMOKING. SHE HAS QUIT COMPLETELY , SINCE EARLY THIS YEAR. Code(s): Z87.891 - Personal history of nicotine dependence Quality Reporting (2019) Adult ([facility] 138/12/15/68) Smoking risk assessment performed?: Yes Patient Tobacco Use Status: Former Tobacco user Coding Level of Care Code Est Pt Level 3 (39976) Diagnoses Allergic rhinitis J30.9 Asthma J45.909 Smoking history Z87.891
== END 2023-09-06 16:19 | disposition home or self-care (01) ==
PROVIDERS: PCP Internal Medicine; Visit Provider Internal Medicine
DX: J30.9 Allergic rhinitis, unspecified (principal); J45.909 Unspecified asthma, uncomplicated; Z87.891 Personal history of nicotine dependence
CPT/HCPCS: 99213

== ENCOUNTER → 2023-09-06 15:59 | Outpatient (BNVA) | payer OTHER, SELFPAY | PROVIDERS: PCP Internal Medicine; Visit Provider Internal Medicine ==

== ENCOUNTER 2023-10-11 14:44 | Outpatient (REF) | payer OTHER, SELFPAY ==
--- NOTE | ~2023-10-11 | US_ITS ---
EXAMINATION: US RETROPERITONEAL LIMITED (RENAL ONLY) CLINICAL INFORMATION: Chronic kidney disease, stage 3b. COMPARISON: Ultrasound abdomen complete 02/25/2021. TECHNIQUE: Real-time imaging of the kidneys. FINDINGS: RIGHT KIDNEY: 9.9 x 4.7 x 4.1 cm (SAG x AP x TRV). The kidney is normal in size and echogenicity. Renal cortical thickness is normal. No renal calculi or hydronephrosis. Multiple hypoechoic simple cysts are seen. The largest cyst is seen in left mid kidney measuring 2.6 x 2.9 x 3.0 cm in size (previously 3.0 x 3.3 x 3.2 cm). LEFT KIDNEY: 8.6 x 4.7 x 3.5 cm (SAG x AP x TRV). The kidney is normal in size and echogenicity. Renal cortical thickness is normal. No renal calculi or hydronephrosis. Multiple simple cysts are seen with the largest cyst found in mid left renal cortex measuring 1.0 x 0.8 x 0.7 cm in size. US/US renal BI IMPRESSION: 1. Persistent multiple right and left renal cortical simple cysts, for which no follow up imaging is recommended. 2. No evidence of hydronephrosis.
== END 2023-10-11 14:45 | disposition home or self-care (01) ==
LOC: HO.US 14:44
PROVIDERS: PCP Internal Medicine; Visit Provider Internal Medicine Nephrology
DX: N18.32 Chronic kidney disease, stage 3b (principal)
CPT/HCPCS: 76775

== ENCOUNTER 2023-11-14 15:46 | Outpatient (AMB) | payer OTHER, SELFPAY ==
[2023-11-14 15:50] VITALS: BP 110/60; BMI 31.3
--- NOTE | 2023-11-14 15:50 | A.OFFPC_ITS ---
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 Accompanied by: Self / Same As Patient Allergies Anesthetics - Amide Type - Select A Allergy (Severe, Verified 11/14/23 16:21) Redness of Skin lisinopril Allergy (Unknown, Verified 11/14/23 16:21) pain in thighs Medication List - Last Reconciled 11/14/23 by Terri Manuel MD albuterol sulfate 2.5 mg (3 mL) PO Q4-6H PRN atenolol 50 mg PO DAILY atorvastatin 20 mg PO BEDTIME 90 days hydrochlorothiazide 25 mg PO DAILY 90 days hydrocortisone 1% (Anti-Itch (hydrocortisone)) 1 appl topical TID PRN 30 days nebulizers (AeroEclipse II Nebulizer) As directed Tobacco use date assessed: 11/14/23 Fall risk assessment: No Falls in past year Last assessed Fall Risk: 11/14/23 Dental Screening Dental Screen Date: 11/14/23 Did you have a dental visit in the last 12 months?: No Did you have a dental problem in the last 6 months where you did not have access to dental care?: No Was dental information given to patient?: Patient has dentist HPI HPI Comments History of Present Illness Details This is a 63-year-old female that comes for her physical exam. Last mammogram was 2022 and was normal. Last Pap smear was 2022 and was normal. Last colonoscopy was at 48 years old and she needs another colonoscopy. No chest pain or shortness of breath. [facility] Medical History (Updated 11/14/23 @ 16:51 by Terri Manuel MD) CKD (chronic kidney disease) stage 3, GFR 30-59 ml/min Asthma Low kidney function Allergic rhinitis Smoking history Sciatic nerve pain Benign essential HTN Surgical History Hx of colonoscopy History of section History of tubal ligation History of cholecystectomy History of tonsillectomy Family History (Updated 11/14/23 @ 16:25 by Terri Manuel MD) Father Diabetes Hypertension CVD (cardiovascular disease) Mother Diabetes Hypertension CAD (coronary artery disease) Stroke Maternal Aunt Myocardial infarction Paternal Aunt Cancer Paternal Uncle Cancer Son No problems noted. Daughter No problems noted. Sister Diabetes CHF (congestive heart failure) Social History (Updated 11/14/23 @ 16:26 by Terri Manuel MD) Household Members: None Housing: House Alcohol intake: current Alcohol intake frequency: holidays/special occasions only Alcohol type: beer and wine Patient Tobacco Use Status: Former Tobacco user Tobacco use type: Cigarette e-Cigarette/Vaping Use: Never Used Second Hand Smoke Exposure: No Substance Use Type: Marijuana service: No Current occupational status: employed Current occupational exposures/hazards: No Cognitive needs: No Hearing needs: No Vision needs: Yes Questionnaire PHQ-9 Over the last 2 weeks, how often have you been bothered by any of the following problems? 1. Little interest or pleasure in doing things: several days 2. Feeling down, depressed, or hopeless: several days 3. Trouble falling or staying asleep, or sleeping too much: several days 4. Feeling tired or having little energy: nearly every day 5. Poor appetite or overeating: not at all 6. Feeling bad about yourself - or that you are a failure or have let yourself or your family down: not at all 7. Trouble concentrating on things, such as reading the newspaper or watching television: several days 8. Moving or speaking so slowly that other people could have noticed. Or the opposite - being so fidgety or restless that you have been moving around a lot more than usual: not at all 9. Thoughts that you would be better off or of hurting yourself in some way: not at all Total score: 7 Depression Screening Interpretation: Positive Depression Screening Follow-up: Existing condition Depression Screening Done: Yes 82947 - PHQ-9 Billing: Yes Source: Developed by Drs. Leoncio Fuentes, Laura Negrete, Dusty Matias and colleagues, with an educational greta from [employer]. Thrive Questionnaire Date Thrive assessed: 11/14/23 I am a: Patient What is your living situation today?: I have a steady place to live Within the past 12 months, did the food you bought not last and you didn't have the money to get more?: Never true Within the past 12 months, did you worry whether your food would run out before you got money to buy more?: Never true Do you have trouble paying for medicines?: No Do you have trouble getting transportation to medical appointments?: No Do you have trouble paying your heating and electricity bill?: No Do you have trouble taking care of your child, family member or friend?: No Do you have trouble with day-to-day activities such as bathing, preparing meals, shopping, managing finances, etc.?: No Are you currently unemployed and looking for a job?: No Are you interested in more education?: No Please select the resources that you would like help with: None Currently or been in a relationship where the following occur: no concerns reported THRIVE Score: 0 AUDIT C Alcohol Use Questionnaire (AUDIT-C) 1. How often do you have a drink containing alcohol?: Monthly or less 2. How many drinks containing alcohol do you have on a typical day when you are drinking?: 1 or 2 3. How often do you have six or more drinks on one occasion?: Never Total Score: 1 Score Reviewed/Action Taken: No RIYA-7 AMB Questionnaire RIYA-7 Date RIYA - 7 assessed: 11/14/23 Feeling nervous, anxious, or on edge: 1 = Several days Not being able to stop or control worryin = Not at all Worrying too much about different things: 1 = Several days Trouble relaxin = Not at all Being so restless that it is hard to sit still: 0 = Not at all Becoming easily annoyed or irritable: 1 = Several days Feeling afraid as if something awful might happen: 0 = Not at all Total RIYA-7 score (0-4 normal; 5-9 mild; 10-14 moderate; 15-21 severe): 3 Source: Developed by Drs. Leoncio Fuentes, Laura Negrete, Dusty Matias and colleagues, with an educational greta from [employer]. RIYA-7 Assessment Billing RIYA-7 Assessment Tool: RIYA-7 Assessment 19910 Review of Systems Const All systems reviewed & are unremarkable except as noted in HPI and below Eyes Reports no additional complaints, Denies change in vision and Denies other visual disturbances Card Denies chest pain at rest, Denies chest pain with activity, Denies edema, Denies irregular heart rhythm, Denies claudication, Denies dyspnea, Denies dyspnea on exertion, Denies orthopnea, Denies paroxysmal nocturnal dyspnea and Denies slow heart rate Resp Denies cough, Denies dyspnea and Denies dyspnea on exertion GI Denies abdominal pain, Denies change in bowel habits, Denies excessive flatus, Denies nausea and Denies vomiting Denies urinary incontinence, Denies urinary hesitancy and Denies urinary urgency Musc Denies abnormal gait, Denies atrophy, Denies deformity and Denies limited range of motion Skin/Breast Denies bleeding lesions, Denies changing lesions and Denies rash Neuro Denies abnormal gait, Denies behavioral changes, Denies confusion and Denies lack of coordination Psych Denies behavioral changes and Denies confusion Physical exam (Primary Care) Vital Signs: Last Vital Signs BP 110/60 11/14/23 15:50 BMI result Body Mass Index 31.3 Tobacco/Smoking Status: Tobacco use Status Tobacco use date assessed 11/14/23 11/14/23 15:58 Patient Tobacco Use Status Former Tobacco user 11/14/23 16:26 Tobacco use type Cigarette 11/14/23 16:26 e-Cigarette/Vaping Use Never Used 11/14/23 16:26 PHQ-9: PHQ-9 Score PHQ-9: Total score 7 11/14/23 16:27 Depression Screening Interpretation: Positive Depression Screening Follow-up: Existing condition Thrive Assessment: Date of Thrive Assessment Date Thrive assessed 11/14/23 11/14/23 15:58 Currently or been in a relationship where the following occur: no concerns reported Const General: No confusion Orientation/consciousness: patient oriented x3 and No confusion HENMT Head: Yes normal to inspection, Yes normocephalic and Yes atraumatic Ears: external ears normal Eyes General: appearance normal, both eyes and all related structures Eyelids: Yes eyelids normal Conjunctivae: conjunctivae normal Neck Neck: Yes normal visual inspection and Yes supple Resp Effort & Inspection: normal respiratory effort Auscultation: clear to auscultation bilaterally Cardio Jugular venous distension: no JVD Rate: regular rate Rhythm: regular rhythm Heart sounds: S1 normal heart sound present and S2 normal heart sound present GI Inspection: Yes normal to inspection Palpation (GI): Soft to palpation and nontender Auscultation: normal bowel sounds Skin General skin exam: no rashes or lesions noted Neuro General: patient oriented x3, no focal motor deficits and No confusion Extrem General: Yes full ROM Psych Appearance: grossly normal Assessment and Plan Assessment & Plan (1) Physical exam: Code(s): Z00.00 - Encounter for general adult medical examination without abnormal findings Plan: Repeat in a year. Orders: Orders Comprehensive [place]. Panel Fast 6 Months Z00.00 - Encounter for general adult medical examination without abnormal findings Lipid Panel 6 Months E78.5 - Hyperlipidemia, unspecified Referrals Open Access Screening Colonoscopy Referral Z00.00 - Encounter for general adult medical examination without abnormal findings, Z12.11 - Encounter for screening for malignant neoplasm of colon Medications: New umeclidinium-vilanterol 62.5-25 mcg/actuation (Anoro Ellipta) 1 inh inhalation DAILY 60 ea 3RF 30 days Coding Level of Care Code Est Pt Prev Care >65y(62121) Diagnoses Physical exam Z00.00 Additional Codes RIYA-7 Assessment Billing - RIYA-7 Assessment Tool: RIYA-7 Assessment 52446 ([id number]) Time Spent (min) 32
== END 2023-11-14 16:35 | disposition home or self-care (01) ==
PROVIDERS: Visit Provider Internal Medicine
DX: Z00.00 Encounter for general adult medical examination without abnormal findings (principal)
CPT/HCPCS: 99397

== ENCOUNTER 2024-02-08 11:21 | Outpatient (REF) | payer OTHER, SELFPAY ==
[2024-02-08 12:28] LABS: Appearance Urine Clear; Color Urine Yellow; Glucose Urine UA Negative (Negative); Leukocyte Esterase Urine Trace (Negative); Nitrite Urine Negative (Negative); Specific Gravity - Urine 1.015 (1.005-1.025); UMIC TRIGGER UA YES; Urine Blood Negative (Negative); Urine Ketones Negative (Negative); Urine Protein Negative (Neg-Trace)
[2024-02-08 12:36] LABS: Bacteria Urine None Seen (None Seen); RBC Urine 0-2 /HPF (0-2); WBC Urine 0-5 /HPF (0-5)
[2024-02-08 12:50] LABS: Creatinine Urine 112.15 mg/dL; Microalbum/Creatinine Ratio Ur 9.8 ug/mg cr (<30); Protein/Creatinine Ratio, Ur 0.08 (<0.2); Total Protein Urine Random 9 mg/dL (<12)
[2024-02-08 12:52] LABS: Blood Urea Nitrogen 26 mg/dL (9-16); Calcium 9.5 mg/dL (8.4-10.2); Estimated Glomerular Filt Rate 52
[2024-02-08 14:14] LABS: Anion Gap 11 (12-20); Carbon Dioxide 30 mmol/L (22-29); Chloride 102 mmol/L (96-108); Potassium 2.9 mmol/L (3.3-5.1); Sodium 140 mmol/L (135-145)
== END 2024-02-08 11:22 | disposition home or self-care (01) ==
LOC: HO.LAB 11:21
PROVIDERS: PCP Internal Medicine; Visit Provider Student in an Organized Health Care Education/Training Program
DX: N18.32 Chronic kidney disease, stage 3b (principal)
CPT/HCPCS: 36415; 80051; 81001; 82043; 82310; 82565; 82570; 84156; 84520

== ENCOUNTER 2024-03-08 16:00 | Outpatient (AMB) | payer OTHER, SELFPAY ==
[2024-03-08 16:10] VITALS: BP 120/70; PULSE 57; O2SAT 97; BMI 30.5
--- NOTE | 2024-03-08 16:10 | MHC.OFFVIS ---
Vital Signs 03/08/24 16:10 Height 4 ft 10 in Weight 146 lb BMI 30.5 BP 120/70 Blood Pressure Location Lt brachial Position Sitting Pulse 57 Pulse Source Pulse Oximeter Pulse Oximetry (%) 97 Oxygen Delivery Method Room Air Intake Visit Reasons: copd Intake Note: pt is here for follow up and states she is on a new inhaler for wheezing by pcp [employer] Required: No Allergies Anesthetics - Amide Type - Select A Allergy (Severe, Verified 03/08/24 16:23) Redness of Skin lisinopril Allergy (Unknown, Verified 03/08/24 16:23) pain in thighs Medication List - Last Reconciled 03/08/24 by Vivian Egan MD albuterol sulfate 2.5 mg (3 mL) PO Q4-6H PRN atenolol 50 mg PO DAILY atorvastatin 20 mg PO BEDTIME 90 days hydrochlorothiazide 25 mg PO DAILY 90 days hydrocortisone 1% (Anti-Itch (hydrocortisone)) 1 appl topical TID PRN 30 days nebulizers (AeroEclipse II Nebulizer) As directed potassium chloride ER 8 mEq PO DAILY 5 days umeclidinium-vilanterol 62.5-25 mcg/actuation (Anoro Ellipta) 1 inh inhalation DAILY Do you need a note to return to daycare/school/sports/work: No HPI HPI copd: Details: 63 years old very pleasant female comes after 6 months for follow-up. She claims that the breathing has been very good and stable. Has had occasional feeling of wheezing. Lately was started on Anoro Ellipta which she uses 1 inhalation daily. She uses albuterol in the nebulizer but only once in a while She does not smoke cigarettes, but smokes marijuana only off and on not on a daily basis. [facility] Medical History CKD (chronic kidney disease) stage 3, GFR 30-59 ml/min Asthma Low kidney function Allergic rhinitis Smoking history Sciatic nerve pain Benign essential HTN Surgical History Hx of colonoscopy History of section History of tubal ligation History of cholecystectomy History of tonsillectomy Family History Father Diabetes Hypertension CVD (cardiovascular disease) Mother Diabetes Hypertension CAD (coronary artery disease) Stroke Maternal Aunt Myocardial infarction Paternal Aunt Cancer Paternal Uncle Cancer Son No problems noted. Daughter No problems noted. Sister Diabetes CHF (congestive heart failure) Social History Household Members: None Housing: House Alcohol intake: current Alcohol intake frequency: holidays/special occasions only Alcohol type: beer and wine Patient Tobacco Use Status: Former Tobacco user Tobacco use type: Cigarette e-Cigarette/Vaping Use: Never Used Second Hand Smoke Exposure: No Substance Use Type: Marijuana service: No Current occupational status: employed Current occupational exposures/hazards: No Cognitive needs: No Hearing needs: No Vision needs: Yes Review of Systems Const All systems reviewed & are unremarkable except as noted in HPI and below Eyes Reports no additional complaints ENT Reports no additional complaints and Reports neck pain Card Denies chest pain, Denies irregular heart rhythm and Denies leg edema Resp Reports as per HPI GI Reports no additional complaints Reports no additional complaints Musc Reports back pain and Reports neck pain Skin/Breast Reports system reviewed and no additional complaints, except as documented Neuro Reports no additional complaints Psych Reports no additional complaints Endo Reports no additional complaints Demarcus/Lymph Reports no additional complaints Aller/Immun Reports no additional complaints Physical Exam Vital Signs: Last Vital Signs Pulse 57 03/08/24 16:10 BP 120/70 03/08/24 16:10 Pulse Ox 97 03/08/24 16:10 Oxygen Delivery Method Room Air 03/08/24 16:10 BMI result Body Mass Index 30.5 Const General: healthy appearing, comfortable, no acute distress, alert and awake Orientation/consciousness: patient oriented x3 HEENT Head: Yes normal to inspection General nose exam: No nasal polyps present, mucous membranes and turbinates abnormal (SLIGHTLY HYPERTROPHIED) and No nasal discharge present Face and sinus: Yes sinuses nontender Mouth: oropharynx normal Throat: Yes posterior oropharynx normal Eyes General: appearance normal, both eyes and all related structures Neck Neck: Yes normal visual inspection, Yes no lymphadenopathy, Yes trachea midline and Yes no JVD Thyroid: Thyroid normal Chest Other: INCREASED AP DIAMETER Chest palpation & inspection: normal inspection of the chest, normal palpation of entire chest wall and no tenderness Resp Other: PERCUSSION NOTE IS RESONANT. BREATH SOUNDS ARE SLIGHTLY DISTANT . NO CREPITATIONS BUT A FEW SCATTERED WHEEZES OVER THE LEFT UPPER CHEST. Cardio Palpation: normal PMI Rate: regular rate Rhythm: regular rhythm Heart sounds: Gallop heart sound present and Murmur heart sound present Peripheral pulses: Peripheral pulses 2+ throughout GI Palpation (GI): Soft to palpation, Tenderness to palpation present (GI), No hepatosplenomegaly present and Palpable mass present Auscultation: normal bowel sounds Back/Spine/Pelvis Thoracic/Lumbar Spine: thoracic and lumbar spine normal to inspection and thoraco-lumbar ROM limited Skin General skin exam: no rashes or lesions noted Neuro General: patient oriented x3 and no focal motor deficits Cranial nerves: Yes CN's II-XII intact bilaterally Extrem General: Yes normal to inspection, Yes no clubbing, cyanosis or edema and Yes no calf tenderness Psych Appearance: grossly normal and well kempt Speech and movement: Normal speech and movement present Quality Reporting (2019) Adult ([facility] 138/12/15/68) Smoking risk assessment performed?: Yes Patient Tobacco Use Status: Former Tobacco user Assessment & Plan Assessment & Plan (1) Allergic rhinitis: Comment: MILD, SEASONAL, WELL CONTROLLED AT THIS TIME. Code(s): J30.9 - Allergic rhinitis, unspecified Category: Medical Plan: [place]: MAY USE FEXOFENADINE 60 MG Q.12 HOURS P.R.N. (2) Smoking history: Comment: PATIENT HAS LONG-STANDING HISTORY OF SMOKING. SHE HAS QUIT COMPLETELY , SINCE 2022 . NOW SHE SMOKES MARIJUANA BUT NOT EVERY DAY Code(s): Z87.891 - Personal history of nicotine dependence Category: Social Hx Plan: COMMENDED FOR NOT SMOKING ANYMORE. ALSO AVOID SMOKING MARIJUANA . ON A DAILY BASIS (3) COPD (chronic obstructive pulmonary disease): Comment: SHE DOES HAVE SYMPTOMS OF MILD SHORTNESS OF BREATH AND OCCASIONAL WHEEZING. ALL CLEARED WITH USE OF LONG-ACTING INHALER. AT PRESENT SHE IS USING ANORO ELLIPTA ONCE A DAY , AND STAYING VERY STABLE. Code(s): J44.9 - Chronic obstructive pulmonary disease, unspecified Category: Medical Plan: OK TO USE ANORO ELLIPTA 1 INHALATION DAILY. ALBUTEROL SOLUTION IN THE NEBULIZER Q 4-6 HOURS ONLY P.R.N.. OR ALTERNATIVELY MAY USE ALBUTEROL HFA 2 PUFFS Q 4-6 HOURS P.R.N. Coding Level of Care Code Est Pt Level 3 (54141) Diagnoses Allergic rhinitis J30.9 Smoking history Z87.891 COPD (chronic obstructive pulmonary disease) J44.9
== END 2024-03-08 16:21 | disposition home or self-care (01) ==
PROVIDERS: PCP Internal Medicine; Visit Provider Internal Medicine
DX: J30.9 Allergic rhinitis, unspecified (principal); Z87.891 Personal history of nicotine dependence; J44.9 Chronic obstructive pulmonary disease, unspecified
CPT/HCPCS: 99213

== ENCOUNTER → 2024-03-08 16:00 | Outpatient (BNVA) | payer OTHER, SELFPAY | PROVIDERS: PCP Internal Medicine; Visit Provider Internal Medicine ==

== ENCOUNTER 2024-04-03 16:16 | Outpatient (AMB) | payer OTHER, SELFPAY ==
--- NOTE | 2024-04-03 16:18 | MHC.OFFVIS ---
Vital Signs 04/03/24 16:24 Height 4 ft 10 in Weight 144 lb 9.972 oz BMI 30.2 BP 118/64 Blood Pressure Location Lt brachial Position Sitting Pulse 64 Pulse Source Pulse Oximeter Pulse Oximetry (%) 96 Oxygen Delivery Method Room Air Intake Visit Reasons: Elevation of levels of liver transaminase levels Intake Note: Shirley presents in office today for a scheduled FUV. CC; Pt is here to discuss recent lab values. Pt denies any new concerns or sx at this time. Pt reports that they have been increasing their fluid intake as well as making dietary changes. 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 Patient reports allergy to amide type anesthetic. Denies any history of sleep apnea.? No history infectious diseases in the past or present.? Not on any anticoagulation therapy.? No family or personal history of colon cancer or polyps.? Patient denies melena, hematochezia, unintentional weight loss or ribbon like stools.? Discussed at length the pre-procedure,? prep, diet & medications as well as what to expect prior, during and after the procedure.?? Stressed the importance of good bowel prep. ?Recommended the use of Vaseline or Calmoseptine OTC & baby wipes with bowel movements to promote comfort.? Patient verbalizes understanding and agrees to plan of care.? She was given the opportunity to ask questions and all questions answered.? We will see her after the procedure.? TODAY'S VISIT: Patient was sent by PCP for elevation in liver enzymes. Mild elevation in her liver enzymes in July. Levels were not repeated. No ultrasound ordered for this. Patient denies any abdominal pain or discomfort. Was seen last year in January and was supposed to go for colonoscopy. Unsure why that appointment was never scheduled. Patient denies any abdominal pain or discomfort. Nothing changed since last visit. Patient denies any dyspepsia, dysphagia or odynophagia. Patient denies any melena, hematochezia, unintentional weight loss or ribbon like stools. Patient denies any family history of liver disease. [facility] Medical History CKD (chronic kidney disease) stage 3, GFR 30-59 ml/min Asthma Low kidney function Allergic rhinitis Smoking history Sciatic nerve pain Benign essential HTN Surgical History Hx of colonoscopy History of section History of tubal ligation History of cholecystectomy History of tonsillectomy Family History Father Diabetes Hypertension CVD (cardiovascular disease) Mother Diabetes Hypertension CAD (coronary artery disease) Stroke Maternal Aunt Myocardial infarction Paternal Aunt Cancer Paternal Uncle Cancer Son No problems noted. Daughter No problems noted. Sister Diabetes CHF (congestive heart failure) Social History Household Members: None Housing: House Alcohol intake: current Alcohol intake frequency: holidays/special occasions only Alcohol type: beer and wine Patient Tobacco Use Status: Former Tobacco user Tobacco use type: Cigarette e-Cigarette/Vaping Use: Never Used Second Hand Smoke Exposure: No Substance Use Type: Marijuana service: No Current occupational status: employed Current occupational exposures/hazards: No Cognitive needs: No Hearing needs: No Vision needs: Yes Review of Systems Const Denies weight gain and Denies weight loss ENT Reports no additional complaints, Denies dysphagia and Denies odynophagia Card Reports no additional complaints Resp Reports no additional complaints GI Denies abdominal pain, Denies belching, Denies melena, Denies bloating, Denies change in bowel habits, Denies dysphagia, Denies excessive flatus, Denies dyspepsia, Denies heartburn, Denies diarrhea, Denies loose stools, Denies nausea, Denies odynophagia and Denies vomiting Musc Reports no additional complaints Neuro Reports no additional complaints Psych Reports no additional complaints Endo Reports no additional complaints Physical Exam Vital Signs: Last Vital Signs Pulse 64 04/03/24 16:24 BP 118/64 04/03/24 16:24 Pulse Ox 96 04/03/24 16:24 Oxygen Delivery Method Room Air 04/03/24 16:24 BMI result Body Mass Index 30.2 Const General: healthy appearing and no acute distress Nutritional Appearance: obese Orientation/consciousness: patient oriented x3 Resp Effort & Inspection: normal respiratory effort, able to speak in complete sentences, no tracheal deviation and symmetric chest movement Auscultation: clear to auscultation bilaterally Cardio Rate: regular rate GI Inspection: Yes normal to inspection, No distended and Yes obesity Palpation (GI): Soft to palpation, not firm, nontender and No hepatosplenomegaly present Auscultation: normal bowel sounds General: Yes no CVA tenderness Back/Spine/Pelvis Back: no CVA tenderness Skin General skin exam: elasticity normal, turgor normal and dry skin Neuro General: patient oriented x3 Psych Appearance: grossly normal Mental Status: mental status grossly normal Quality Reporting (2019) Adult ([facility] 138/12/15/68) Smoking risk assessment performed?: Yes Patient Tobacco Use Status: Former Tobacco user Assessment & Plan Assessment & Plan (1) Transaminitis: Code(s): R74.01 - Elevation of levels of liver transaminase levels Category: Medical (2) Screen for colon cancer: Code(s): Z12.11 - Encounter for screening for malignant neoplasm of colon Category: Medical Plan Will send message to surgical scheduled to schedule colonoscopy for patient. Patient was sent to us for transaminitis. Mild increase in liver enzymes back in July. No levels repeated since then. Patient denies drinking alcohol. She is not taking any Tylenol. No significant weight gain in the past few months. Patient actually lost 10 lb since last year I saw her. Will repeat liver panel, A1c and will send patient for abdominal ultrasound with elastography. I will see her in 3 months, sooner on as needed basis. She is agreeable to this plan and verbalizes understanding of instructions. She was given the opportunity to ask questions and all questions answered. Thank you for allowing me to participate in her care Orders: Orders Hemoglobin A1c 04/03/24 E11.9 - Type 2 diabetes mellitus without complications Liver Panel 04/03/24 R74.01 - Elevation of levels of liver transaminase levels US abdomen reno w elastography 04/03/24 R74.01 - Elevation of levels of liver transaminase levels Coding Level of Care Code Est Pt Level 4 (57235) Diagnoses Transaminitis R74.01 Screen for colon cancer Z12.11 Time Spent (min) 35 Comment 20 minutes spent with patient and additional 15 minutes spent reviewing her records
[2024-04-03 16:24] VITALS: BP 118/64; PULSE 64; O2SAT 96; BMI 30.2
== END 2024-04-03 16:48 | disposition home or self-care (01) ==
PROVIDERS: PCP Internal Medicine; Visit Provider Nurse Practitioner Family
DX: R74.01 Elevation of levels of liver transaminase levels (principal); Z12.11 Encounter for screening for malignant neoplasm of colon
CPT/HCPCS: 99214

== ENCOUNTER → 2024-04-03 16:16 | Outpatient (BNVA) | payer OTHER, SELFPAY | PROVIDERS: PCP Internal Medicine; Visit Provider Nurse Practitioner Family ==

== ENCOUNTER 2024-04-13 09:50 | Outpatient (REF) | payer OTHER, SELFPAY ==
--- NOTE | ~2024-04-13 | US_ITS ---
EXAMINATION: US ABDOMEN LIMITED WITH LIVER ELASTOGRAPHY CLINICAL INFORMATION: Elevated liver transaminase levels. COMPARISON: None available. TECHNIQUE: Real-time imaging of the abdominal viscera. Noninvasive ultrasound liver fibrosis assessment is performed using Faraz ElastPQ point quantification shear wave elastography (2D-SWE) with a C5-2 MHz transducer. Multiple elastography samples are obtained. FINDINGS: PANCREAS: Normal. The visualized pancreatic head and body are normal in appearance. The remainder of the pancreas is obscured from visualization by the overlying bowel gas. LIVER: The liver demonstrates normal size, contour and increased echogenicity. No focal lesion or intrahepatic biliary duct dilatation. The right lobe measures 14.3 cm in length. The left lobe measures 10.0 cm in length. Portal flow is towards the liver (hepatopetal). Shear wave liver elastography median stiffness is 1.33 m/s (reference: normal median stiffness is 1.3 m/s or less). IQR/median stiffness to assess sampling precision is 0.25 (reference: good quality data set is IQR/median stiffness of 0.15 or less). GALLBLADDER: Surgically absent. COMMON BILE DUCT: Normal in caliber measuring 0.4 cm in diameter. RIGHT KIDNEY: At the upper pole, an 8 mm benign, simple cyst is seen. At the interpolar aspect, there are 2.9 cm and 1.2 cm benign, simple cysts. These require no imaging follow-up. No hydronephrosis. No renal calculi or focal parenchymal lesions. The kidney measures 10.3 cm in maximum dimension. FREE FLUID: None. US/US abdomen reno w elastography IMPRESSION: 1. There is generalized increase in hepatic echotexture, consistent with fatty infiltration or hepatocellular disease. Please correlate clinically. No focal hepatic mass or intrahepatic biliary dilatation is seen. 2. Liver elastography: Although measurements appear to rule out compensated advanced chronic liver disease, there is statistical variability of the sampling which decreases accuracy. 3. The gallbladder is surgically absent. REFERENCE: Society of Radiologists in Ultrasound Liver Stiffness Thresholds (2020): LIVER STIFFNESS THRESHOLDS: *Liver Stiffness equal or less than 1.3 m/s: High probability of being normal. *Liver Stiffness less than 1.7 m/s: In the absence of other known clinical signs, rules out compensated advanced chronic liver disease. *Liver Stiffness 1.7-2.1 m/s: Suggestive of compensated advanced chronic liver disease but need further test for confirmation. *Liver Stiffness over 2.1 m/s: Rules in compensated advanced chronic liver disease. *Liver Stiffness over 2.4 m/s: Suggestive of clinically significant portal hypertension. QUALITY OF DATA SET: *IQR/Median value equal or less than 0.15 implies a quality data set. *IQR/Median value over 0.15 implies a poor quality data set. SIGNIFICANT CHANGE FROM PRIOR EXAM: Significant change if liver stiffness measurement is 10% or greater from prior exam. OTHER CONSIDERATIONS: The stage of liver fibrosis may be overestimated in the setting of acute hepatitis, liver inflammation, elevated liver function tests, hepatic vascular congestion, obstructive cholestasis, non-fasting state, and infiltrative diseases such as amyloidosis and lymphoma. In some patients with NAFLD, the liver stiffness thresholds for compensated advanced chronic liver disease may be lower. In causes other than viral hepatitis and NAFLD, liver stiffness thresholds are not well established.
[2024-04-13 12:09] LABS: Estimated Average Glucose 123 mg/dL; Hemoglobin A1c % 5.9 % (<6.0)
[2024-04-13 12:34] LABS: Alanine Aminotransferase 19 U/L (0-31); Alkaline Phosphatase 102 U/L (39-117); Anion Gap 10 (12-20); Aspartate Amino Transferase 21 U/L (5-31); Bilirubin Direct 0.2 mg/dL (0.0-0.5); Bilirubin Total 0.8 mg/dL (0.0-1.0); Blood Urea Nitrogen 32 mg/dL (9-16); Calcium 9.6 mg/dL (8.4-10.2); Carbon Dioxide 30 mmol/L (22-29); Chloride 104 mmol/L (96-108); Estimated Glomerular Filt Rate > 60; Glucose Random 96 mg/dL (60-115); Potassium 3.3 mmol/L (3.3-5.1); Sodium 141 mmol/L (135-145); Total Protein 7.6 g/dL (6.5-8.0)
== END 2024-04-13 09:51 | disposition home or self-care (01) ==
LOC: HO.US 09:50
PROVIDERS: Absent Provider Internal Medicine; PCP Internal Medicine; Visit Provider Nurse Practitioner Family
DX: R74.01 Elevation of levels of liver transaminase levels (principal); E11.9 Type 2 diabetes mellitus without complications; E87.6 Hypokalemia
CPT/HCPCS: 36415; 76705; 76981; 80053; 80076; 82248; 83036

== ENCOUNTER 2024-05-15 16:10 | Outpatient (AMB) | payer BC, SELFPAY ==
--- NOTE | 2024-05-15 16:23 | A.OFFPC_ITS ---
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 Accompanied by: Self / Same As Patient Allergies Anesthetics - Amide Type - Select A Allergy (Severe, Verified 05/15/24 16:30) Redness of Skin lisinopril Allergy (Unknown, Verified 05/15/24 16:30) pain in thighs Medication List - Last Reconciled 05/15/24 by Terri Manuel MD albuterol sulfate 2.5 mg (3 mL) PO Q4-6H PRN atenolol 50 mg PO DAILY atorvastatin 20 mg PO BEDTIME 90 days hydrochlorothiazide 25 mg PO DAILY 90 days hydrocortisone 1% (Anti-Itch (hydrocortisone)) 1 appl topical TID PRN 30 days nebulizers (AeroEclipse II Nebulizer) As directed potassium chloride ER 8 mEq PO DAILY 5 days umeclidinium-vilanterol 62.5-25 mcg/actuation (Anoro Ellipta) 1 inh inhalation DAILY 30 days Tobacco use date assessed: 11/14/23 Fall risk assessment: No Falls in past year Last assessed Fall Risk: 05/15/24 Dental Screening Dental Screen Date: 11/14/23 HPI HPI Comments History of Present Illness Details This is a 64-year-old female with hypertension, mixed hyperlipidemia and COPD that comes today complaining of a rash in both arms and upper chest that started about a week ago. Rash is maculopapular. She denies any new food, detergent or soap. I will give her a short course of prednisone for this matter. Blood pressure stable. Last cholesterol was well controlled. COPD stable with long-acting inhaler. She use rescue inhaler about once a month. [facility] Medical History CKD (chronic kidney disease) stage 3, GFR 30-59 ml/min Asthma Low kidney function Allergic rhinitis Smoking history Sciatic nerve pain Benign essential HTN Surgical History Hx of colonoscopy History of section History of tubal ligation History of cholecystectomy History of tonsillectomy Family History Father Diabetes Hypertension CVD (cardiovascular disease) Mother Diabetes Hypertension CAD (coronary artery disease) Stroke Maternal Aunt Myocardial infarction Paternal Aunt Cancer Paternal Uncle Cancer Son No problems noted. Daughter No problems noted. Sister Diabetes CHF (congestive heart failure) Social History Household Members: None Housing: House Alcohol intake: current Alcohol intake frequency: holidays/special occasions only Alcohol type: beer and wine Patient Tobacco Use Status: Former Tobacco user Tobacco use type: Cigarette e-Cigarette/Vaping Use: Never Used Second Hand Smoke Exposure: No Substance Use Type: Marijuana service: No Current occupational status: employed Current occupational exposures/hazards: No Cognitive needs: No Hearing needs: No Vision needs: Yes Questionnaire Thrive Questionnaire Date Thrive assessed: 11/14/23 RIYA-7 AMB Questionnaire RIYA-7 Date RIYA - 7 assessed: 11/14/23 Source: Developed by Drs. Leoncio Fuentes, Laura Negrete, Dusty Matias and colleagues, with an educational greta from [employer]. Review of Systems Const All systems reviewed & are unremarkable except as noted in HPI and below Card Denies chest pain at rest, Denies chest pain with activity, Denies edema, Denies irregular heart rhythm, Denies claudication, Denies dyspnea, Denies dyspnea on exertion, Denies orthopnea, Denies paroxysmal nocturnal dyspnea and Denies slow heart rate Resp Denies cough, Denies dyspnea and Denies dyspnea on exertion GI Denies abdominal pain, Denies change in bowel habits, Denies excessive flatus, Denies nausea and Denies vomiting Skin/Breast Reports rash Physical exam (Primary Care) Vital Signs: Last Vital Signs BP 130/70 05/15/24 16:24 BMI result Body Mass Index 30.7 BMI Assessment/Plan discussion: High BMI High, discussed plan: lifestyle, weight reduction, dietary and physical activity Tobacco/Smoking Status: Tobacco use Status Tobacco use date assessed 11/14/23 05/15/24 16:29 Patient Tobacco Use Status Former Tobacco user 05/15/24 16:29 Tobacco use type Cigarette 05/15/24 16:29 e-Cigarette/Vaping Use Never Used 05/15/24 16:29 Thrive Assessment: Date of Thrive Assessment Date Thrive assessed 11/14/23 05/15/24 16:29 Resp Effort & Inspection: normal respiratory effort Auscultation: clear to auscultation bilaterally Cardio Jugular venous distension: no JVD Rate: regular rate Rhythm: regular rhythm Heart sounds: S1 normal heart sound present and S2 normal heart sound present Skin Rashes: rashes noted maculopapular rash bilateral Extrem General: Yes full ROM Assessment and Plan Assessment & Plan (1) Rash: Code(s): R21 - Rash and other nonspecific skin eruption Plan: Start prednisone pack. (2) Essential hypertension: Code(s): I10 - Essential (primary) hypertension Plan: Continue atenolol and hydrochlorothiazide. Blood pressure goal is equal or less than 130/80. (3) Mixed hyperlipidemia: Code(s): E78.2 - Mixed hyperlipidemia Plan: Continue statins. Follow a low-cholesterol diet. (4) COPD (chronic obstructive pulmonary disease): Comment: SHE DOES HAVE SYMPTOMS OF MILD SHORTNESS OF BREATH AND OCCASIONAL WHEEZING. ALL CLEARED WITH USE OF LONG-ACTING INHALER. AT PRESENT SHE IS USING ANORO ELLIPTA ONCE A DAY , AND STAYING VERY STABLE. Code(s): J44.9 - Chronic obstructive pulmonary disease, unspecified Plan: Continue Anoro. Medications: New prednisone Take 4 tabs for 2 days, then 3 tabs for 2 days, then 2 tabs for 2 days, then 1 tab for 2 days 10 mg PO DIRECTED 20 tabs 0RF 8 days Discontinued potassium chloride ER Discontinued Reason: Patient Completed Course 8 mEq PO DAILY 5 days 5 caps 0RF Coding Level of Care Code Est Pt Level 4 (48952) Complex EM visit Add On G2211 Diagnoses Rash R21 Essential hypertension I10 Mixed hyperlipidemia E78.2 COPD (chronic obstructive pulmonary disease) J44.9 Time Spent (min) 23
[2024-05-15 16:24] VITALS: BP 130/70; BMI 30.7
== END 2024-05-15 16:40 | disposition home or self-care (01) ==
PROVIDERS: PCP Internal Medicine; Visit Provider Internal Medicine
DX: R21 Rash and other nonspecific skin eruption (principal); I10 Essential (primary) hypertension; E78.2 Mixed hyperlipidemia; J44.9 Chronic obstructive pulmonary disease, unspecified
CPT/HCPCS: 99214

== ENCOUNTER 2024-07-13 16:19 | Outpatient (AMB) | payer BC, SELFPAY ==
[2024-07-13 16:21] VITALS: BP 128/72; PULSE 68; O2SAT 94; BMI 31.5
--- NOTE | 2024-07-13 16:21 | A.OFFVIS_ITS ---
Vital Signs 07/13/24 16:21 Height 4 ft 10 in Weight 150 lb 12.739 oz BMI 31.5 BP 128/72 Blood Pressure Location Lt brachial Position Sitting Pulse 68 Pulse Source Pulse Oximeter Pulse Oximetry (%) 94 Oxygen Delivery Method Room Air Intake Visit Reasons: 3 month follow up Intake Note: Shirley presents in office today for a scheduled 3 mos FUV. CC; Pt is also here to discuss recent lab results. Pt is also going to discuss upcoming colo. Pt also had recent liver US. Pt reports that they have remained stable since their last visit. No current sx or concerns. Public Interviewer Required: No Allergies Anesthetics - Amide Type - Select A Allergy (Severe, Verified 07/13/24 16:22) Redness of Skin lisinopril Allergy (Unknown, Verified 07/13/24 16:22) pain in thighs HPI HPI 3 month follow up: Details: LAST VISIT Transaminitis Screen for colon cancer Plan Will send message to surgical scheduled to schedule colonoscopy for patient. Patient was sent to us for transaminitis. Mild increase in liver enzymes back in July. No levels repeated since then. Patient denies drinking alcohol. She is not taking any Tylenol. No significant weight gain in the past few months. Patient actually lost 10 lb since last year I saw her. Will repeat liver panel, A1c and will send patient for abdominal ultrasound with elastography. I will see her in 3 months, sooner on as needed basis. She is agreeable to this plan and verbalizes understanding of instructions. She was given the opportunity to ask questions and all questions answered. ? Thank you for allowing me to participate in her care Orders Orders Hemoglobin A1c 04/03/24 E11.9 Liver Panel 04/03/24 R74.01 US abdomen reno w elastography 04/03/24 R74.01 TODAY'S VISIT Patient is here today for follow-up. Ultrasound with liver elastography as well as lab work discussed with patient. Liver enzymes have improved and normalized currently. Increase echogenicity suggestive fatty liver. Patient is overdue to go for colonoscopy. Procedure is scheduled for her in August. We will discuss prep today. Patient denies any issues with anesthesia in the past. No history of sleep apnea. Patient denies any cardiac or respiratory symptoms. Patient is not on any anticoagulation medication. [facility] Medical History CKD (chronic kidney disease) stage 3, GFR 30-59 ml/min Asthma Low kidney function Allergic rhinitis Smoking history Sciatic nerve pain Benign essential HTN Surgical History Hx of colonoscopy History of section History of tubal ligation History of cholecystectomy History of tonsillectomy Family History Father Diabetes Hypertension CVD (cardiovascular disease) Mother Diabetes Hypertension CAD (coronary artery disease) Stroke Maternal Aunt Myocardial infarction Paternal Aunt Cancer Paternal Uncle Cancer Son No problems noted. Daughter No problems noted. Sister Diabetes CHF (congestive heart failure) Social History Household Members: None Housing: House Alcohol intake: current Alcohol intake frequency: holidays/special occasions only Alcohol type: beer and wine Patient Tobacco Use Status: Former Tobacco user Tobacco use type: Cigarette e-Cigarette/Vaping Use: Never Used Second Hand Smoke Exposure: No Substance Use Type: Marijuana service: No Current occupational status: employed Current occupational exposures/hazards: No Cognitive needs: No Hearing needs: No Vision needs: Yes Review of Systems Const Denies weight gain and Denies weight loss ENT Reports no additional complaints, Denies dysphagia and Denies odynophagia Card Reports no additional complaints Resp Reports no additional complaints GI Denies abdominal pain, Denies belching, Denies melena, Denies bloating, Denies change in bowel habits, Denies dysphagia, Denies excessive flatus, Denies dyspepsia, Denies heartburn, Denies diarrhea, Denies loose stools, Denies nausea, Denies odynophagia and Denies vomiting Reports no additional complaints Musc Reports no additional complaints Neuro Reports no additional complaints Psych Reports no additional complaints Endo Reports no additional complaints Physical Exam Vital Signs: Last Vital Signs Pulse 68 07/13/24 16:21 BP 128/72 07/13/24 16:21 Pulse Ox 94 07/13/24 16:21 Oxygen Delivery Method Room Air 07/13/24 16:21 BMI result Body Mass Index 31.5 Const General: healthy appearing and no acute distress Nutritional Appearance: obese Orientation/consciousness: patient oriented x3 Resp Effort & Inspection: normal respiratory effort, able to speak in complete sentences, no tracheal deviation and symmetric chest movement Auscultation: clear to auscultation bilaterally Cardio Rate: regular rate GI Inspection: Yes normal to inspection, No distended and Yes obesity Palpation (GI): Soft to palpation, not firm, nontender and No hepatosplenomegaly present Auscultation: normal bowel sounds General: Yes no CVA tenderness Back/Spine/Pelvis Back: no CVA tenderness Skin General skin exam: elasticity normal, turgor normal and dry skin Neuro General: patient oriented x3 Psych Appearance: grossly normal Mental Status: mental status grossly normal Quality Reporting (2019) Adult ([facility] 138/12/15/68) Smoking risk assessment performed?: Yes Patient Tobacco Use Status: Former Tobacco user Results Reviewed Results Reviewed: ABDOMINAL ULTRASOUND WITH ELASTOGRAPHY FINDINGS: PANCREAS: Normal. The visualized pancreatic head and body are normal in appearance. The remainder of the pancreas is obscured from visualization by the overlying bowel gas. LIVER: The liver demonstrates normal size, contour and increased echogenicity. No focal lesion or intrahepatic biliary duct dilatation. The right lobe measures 14.3 cm in length. The left lobe measures 10.0 cm in length. Portal flow is towards the liver (hepatopetal). Shear wave liver elastography median stiffness is 1.33 m/s (reference: normal median stiffness is 1.3 m/s or less). IQR/median stiffness to assess sampling precision is 0.25 (reference: good quality data set is IQR/median stiffness of 0.15 or less). GALLBLADDER: Surgically absent. COMMON BILE DUCT: Normal in caliber measuring 0.4 cm in diameter. RIGHT KIDNEY: At the upper pole, an 8 mm benign, simple cyst is seen. At the interpolar aspect, there are 2.9 cm and 1.2 cm benign, simple cysts. These require no imaging follow-up. No hydronephrosis. No renal calculi or focal parenchymal lesions. The kidney measures 10.3 cm in maximum dimension. FREE FLUID: None. US/US abdomen reno w elastography IMPRESSION: 1. There is generalized increase in hepatic echotexture, consistent with fatty infiltration or hepatocellular disease. Please correlate clinically. No focal hepatic mass or intrahepatic biliary dilatation is seen. 2. Liver elastography: Although measurements appear to rule out compensated advanced chronic liver disease, there is statistical variability of the sampling which decreases accuracy. Laboratory Tests 08/12/23 04/13/24 09:23 10:41 Hemoglobin A1c % 5.9 Total Bilirubin 0.4 0.8 Direct Bilirubin 0.2 AST 26 21 ALT 33 H 19 Assessment & Plan Assessment & Plan (1) Transaminitis: Code(s): R74.01 - Elevation of levels of liver transaminase levels Category: Medical (2) Screen for colon cancer: Code(s): Z12.11 - Encounter for screening for malignant neoplasm of colon Category: Medical (3) Non-alcoholic fatty liver disease: Code(s): K76.0 - Fatty (change of) liver, not elsewhere classified Plan Lab results and liver ultrasound with elastography discussed with patient. Patient was encouraged to lose weight. Low fat, low-salt high-protein diet discussed with patient. Stay away from carbs. Patient will go for colonoscopy. Scheduled for August. What to expect before during and after procedure discussed with patient. Stressed the importance of good bowel prep and clear liquid diet day before procedure. Patient will follow-up with us after the procedure, sooner on as needed basis. She is agreeable to this plan and verbalizes understanding of instructions. She was given the opportunity to ask questions and all questions answered Thank you for allowing me to participate in her care Medications: New bisacodyl (Dulcolax (bisacodyl)) take 4 tabs at noon the day before your colonoscopy 20 mg (4 x 5 mg) PO ONCE 4 tabs 0RF 1 day Z12.11 - Encounter for screening for malignant neoplasm of colon Miralax (polyethylene glycol 3350) As directed by gastroenterology department at [facility] 238 grams PO ONCE 238 grams 0RF NS Z12.11 - Encounter for screening for malignant neoplasm of colon Coding Level of Care Code Est Pt Level 4 (98380) Diagnoses Transaminitis R74.01 Screen for colon cancer Z12.11 Non-alcoholic fatty liver disease K76.0 Time Spent (min) 35 Comment 20 minutes spent with patient and additional 15 minutes spent reviewing her records
== END 2024-07-13 16:43 | disposition home or self-care (01) ==
PROVIDERS: PCP Internal Medicine; Visit Provider Nurse Practitioner Family
DX: R74.01 Elevation of levels of liver transaminase levels (principal); Z12.11 Encounter for screening for malignant neoplasm of colon; K76.0 Fatty (change of) liver, not elsewhere classified
CPT/HCPCS: 99214

== ENCOUNTER → 2024-07-13 16:19 | Outpatient (BNVA) | payer BC, SELFPAY | PROVIDERS: PCP Internal Medicine; Visit Provider Nurse Practitioner Family ==

== ENCOUNTER 2024-07-31 13:32 | Outpatient (REF) | payer BC, SELFPAY ==
[2024-07-31 17:14] LABS: Influenza A PCR NEGATIVE (Negative); Influenza B PCR NEGATIVE (Negative); Resp Syncy Virus RNA Qual PCR NEGATIVE (Negative); SARS COV2 PCR INHOUSE NEGATIVE (Negative)
== END 2024-07-31 13:33 | disposition home or self-care (01) ==
LOC: HO.LAB 13:32
PROVIDERS: PCP Internal Medicine; Visit Provider Physician Assistant
DX: J06.9 Acute upper respiratory infection, unspecified (principal)
CPT/HCPCS: 0241U

== ENCOUNTER 2024-07-31 13:32 | Outpatient (AMB) | payer BC, SELFPAY ==
--- NOTE | 2024-07-31 13:34 | AM.OFFWIN_ITS ---
Intake Vital Signs 07/31/24 13:35 Height 4 ft 10 in Weight 150 lb BMI 31.3 BP 140/90 H Blood Pressure Location Lt brachial Position Sitting Pulse 83 Pulse Source Pulse Oximeter Temp 98.4 F Temp Source Oral Pulse Oximetry (%) 98 Oxygen Delivery Method Room Air Intake Visit Reasons: EP ? sinus infection & body aches Intake Note: Patient here for congestion, headache and body aches which started Tuesday. Patient Tobacco Use Status: Former Tobacco user Allergies Anesthetics - Amide Type - Select A Allergy (Severe, Verified 07/31/24 13:36) Redness of Skin lisinopril Allergy (Unknown, Verified 07/31/24 13:36) pain in thighs Do you need a note to return to daycare/school/sports/work: Yes HPI HPI Comments History of Present Illness Details Patient is a 64-year-old female complaining of 3 days of what she thinks is a sinus infection. She tells me she was sinus pain, head congestion, headaches and body aches as well as a cough that is now developing which is dry. She denies any fevers, shortness of breath, nausea, vomiting or diarrhea. She states she does have a reduced appetite. She tells me she has been using Coricidin without much relief. [facility] Medical History CKD (chronic kidney disease) stage 3, GFR 30-59 ml/min Asthma Low kidney function Allergic rhinitis Smoking history Sciatic nerve pain Benign essential HTN Surgical History Hx of colonoscopy History of section History of tubal ligation History of cholecystectomy History of tonsillectomy Family History Father Diabetes Hypertension CVD (cardiovascular disease) Mother Diabetes Hypertension CAD (coronary artery disease) Stroke Maternal Aunt Myocardial infarction Paternal Aunt Cancer Paternal Uncle Cancer Son No problems noted. Daughter No problems noted. Sister Diabetes CHF (congestive heart failure) Social History Household Members: None Housing: House Alcohol intake: current Alcohol intake frequency: holidays/special occasions only Alcohol type: beer and wine Patient Tobacco Use Status: Former Tobacco user Tobacco use type: Cigarette e-Cigarette/Vaping Use: Never Used Second Hand Smoke Exposure: No Substance Use Type: Marijuana service: No Current occupational status: employed Current occupational exposures/hazards: No Cognitive needs: No Hearing needs: No Vision needs: Yes Review of Systems Const All systems reviewed & are unremarkable except as noted in HPI and below Physical Exam Vital Signs: Last Vital Signs Temp 98.4 F 07/31/24 13:35 Pulse 83 07/31/24 13:35 BP 140/90 H 07/31/24 13:35 Pulse Ox 98 07/31/24 13:35 Oxygen Delivery Method Room Air 07/31/24 13:35 BMI result Body Mass Index 31.3 Const General: cooperative, healthy appearing, comfortable and no acute distress Orientation/consciousness: patient oriented x3 Limitations: no limitations HEENT Head: Yes normal to inspection Ears: hearing grossly normal bilaterally, external ears normal and TM's normal bilaterally General nose exam: Normal external nose present, Normal nares present and No nasal discharge present Face and sinus: Yes normal facial exam and Yes sinuses nontender Mouth: Normal oral and palatal mucosa present and moist mucous membranes Throat: Yes tonsils normal, Yes uvula midline and Yes posterior oropharynx abnormal (Erythema) Eyes General: appearance normal, both eyes and all related structures Neck Neck: Yes normal visual inspection Resp Effort & Inspection: normal respiratory effort, able to speak in complete se ntences, Actively coughing, no respiratory distress, not tachypneic, no tripod positioning and no use of accessory muscles Skin General skin exam: no rashes or lesions noted Neuro General: patient oriented x3 Extrem General: Yes normal to inspection and Yes no clubbing, cyanosis or edema Assessment & Plan Assessment & Plan (1) Sinusitis, acute: Code(s): J01.90 - Acute sinusitis, unspecified Qualifiers: Sinusitis location: maxillary Recurrence: non-recurrent Qualified Code(s): J01.00 - Acute maxillary sinusitis, unspecified Plan: Recommended patient use Neti pot, Flonase or similar nasal spray, we will send prednisone to pharmacy, also sent test for flu COVID and RSV. Plan See above Orders: Orders SARS-CoV2/FLU/RSV Today J06.9 - Acute upper respiratory infection, unspecified Medications: New prednisone 20 mg PO DAILY 5 tabs 0RF Coding Level of Care Code Est Pt Level 3 (06672) Diagnoses Acute non-recurrent maxillary sinusitis J01.00 Sinusitis location: maxillary Recurrence: non-recurrent
[2024-07-31 13:35] VITALS: BP 140/90; PULSE 83; TEMP 36.9; O2SAT 98; BMI 31.3
== END 2024-07-31 14:17 | disposition home or self-care (01) ==
PROVIDERS: PCP Internal Medicine; Visit Provider Physician Assistant
DX: J01.00 Acute maxillary sinusitis, unspecified (principal)

== ENCOUNTER 2024-08-04 08:56 | Outpatient (REF) | payer BC, SELFPAY ==
--- NOTE | ~2024-08-04 | MM_ITS ---
EXAMINATION: MM SCREENING DIGITAL BREAST TOMOSYNTHESIS, BILATERAL CLINICAL INFORMATION: Screening. Asymptomatic. COMPARISON: Mammography: Comparison is made with available priors TECHNIQUE: Digital breast mammography with tomosynthesis is performed in both the craniocaudal and mediolateral oblique views along with computer-aided detection (CAD). FINDINGS: The breasts are heterogeneously dense, which may obscure small masses (ACR BI-RADS breast composition Category c). There are no significant masses, abnormal calcifications, or other abnormalities. MM/MM tomosynthesis screening BI IMPRESSION: No mammographic evidence of malignancy. ASSESSMENT: BI-RADS BI-RADS 1 - Negative RECOMMENDATION: Routine annual mammography screening. 1 year F/U This examination should not preclude the clinical evaluation of a suspicious palpable abnormality. This patient's information was entered into a reminder system with a target due date for their next mammogram. Electronically signed by: Eileen Rojo DO 08/17/2024 10:08 AM BARR[facility]
== END 2024-08-04 08:57 | disposition home or self-care (01) ==
LOC: HO.MAMMO 08:56
PROVIDERS: PCP Internal Medicine; Visit Provider Internal Medicine
DX: Z12.31 Encounter for screening mammogram for malignant neoplasm of breast (principal)
CPT/HCPCS: 77063; 77067

== ENCOUNTER → 2024-08-04 09:00 | Outpatient (BNV) | payer BC, SELFPAY | PROVIDERS: PCP Internal Medicine; Visit Provider Internal Medicine | DX: Z12.31 Encounter for screening mammogram for malignant neoplasm of breast (principal) | CPT/HCPCS: 77063; 77067 ==

== ENCOUNTER 2024-08-23 09:45 | Day surgery (SDC) | payer BC, SELFPAY ==
[2024-08-20 16:26] VITALS: BMI 31.5
--- NOTE | 2024-08-22 09:24 | HO.ANESPROP2 ---
Documented by User: Randee Oden NP 08/22/24 09:25 HPI - Anesthesia Eval Consult details Narrative: 64yo F for Colonoscopy PMFSH Active Problems Active Problems: All Active Problems Sinusitis, acute (Acute) Rash (Acute) Hypokalemia (Acute) Asthma (Acute) Transaminitis (Acute) Essential hypertension (Acute) Lumbar radicular syndrome (Acute) Leukocytosis (Chronic) Mixed hyperlipidemia (Acute) Impaired glucose tolerance (Acute) Allergic rhinitis (Acute) Smoking history (Acute) Screening for cervical cancer (Acute) Screen for colon cancer (Acute) Class 1 obesity with body mass index (BMI) of 32.0 to 32.9 in adult (Acute) COPD (chronic obstructive pulmonary disease) (Acute) Physical exam (Acute) Acute bronchitis (Acute) Mild persistent asthma (Acute) Sacroiliac joint dysfunction (Acute) Lumbar spondylosis (Acute) Muscle spasm (Acute) Degenerative arthritis (Acute) Lumbar pain (Acute) Mid back pain (Acute) Pain of right scapula (Acute) Right shoulder pain (Acute) Neck pain (Acute) Upper abdominal pain (Acute) Rib pain (Acute) Sciatic nerve pain (Acute) Benign essential HTN (Acute) Past Medical History Medical History CKD (chronic kidney disease) stage 3, GFR 30-59 ml/min Asthma Low kidney function Allergic rhinitis Smoking history Sciatic nerve pain Benign essential HTN Family History Family History Father Diabetes Hypertension CVD (cardiovascular disease) Mother Diabetes Hypertension CAD (coronary artery disease) Stroke Maternal Aunt Myocardial infarction Paternal Aunt Cancer Paternal Uncle Cancer Son No problems noted. Daughter No problems noted. Sister Diabetes CHF (congestive heart failure) Surgical History Surgical History Hx of colonoscopy History of section History of tubal ligation History of cholecystectomy History of tonsillectomy Social History Social History Household Members: None Housing: House Are you a primary primary health care nurse to a significant other at home: No Do you presently have visiting nurse or other home services: No Alcohol intake: current Alcohol intake frequency: holidays/special occasions only Alcohol type: beer and wine Patient Tobacco Use Status: Former Tobacco user Tobacco use type: Cigarette e-Cigarette/Vaping Use: Never Used Second Hand Smoke Exposure: No Use of substances other than those prescribed or required for medical reasons: Yes Substance Use Type: Marijuana Have you been hit, kicked, punched, or otherwise hurt by someone within the past year? If so, by whom?: No Are you DNR?: No Advance Directives: No Advance Directives Information Provided: Yes Recently lost weight without trying: No service: No Current occupational status: employed Current occupational exposures/hazards: No Cognitive needs: No Hearing needs: No Vision needs: Yes Meds Allergies Allergy/AdvReac Type Severity Reaction Status Date / Time Anesthetics - Amide Type - Allergy Severe Redness of Verified 07/31/24 13:36 Select A Skin lisinopril Allergy Unknown pain in Verified 07/31/24 13:36 thighs Exam Height,Weight and Vital Signs: Height 4 ft 10 in Weight 68.399 kg Pertinent Lab Results Pertinent Lab Results: Laboratory Tests 11/14/23 04/13/24 13:17 10:41 WBC 14.4 H Hgb 14.2 Hct 42.6 Plt Count 329 Sodium 141 Potassium 3.3 Chloride 104 Carbon Dioxide 30 H BUN 32 H Creatinine 0.88 Assessment and Plan Assessment Anesthesia Assessment: Chart Reviewed Documented by User: Lindsay Funk MD 08/23/24 10:22 [facility] Past Medical History Medical History CKD (chronic kidney disease) stage 3, GFR 30-59 ml/min Asthma Low kidney function Allergic rhinitis Smoking history Sciatic nerve pain Benign essential HTN Family History Family History Father Diabetes Hypertension CVD (cardiovascular disease) Mother Diabetes Hypertension CAD (coronary artery disease) Stroke Maternal Aunt Myocardial infarction Paternal Aunt Cancer Paternal Uncle Cancer Son No problems noted. Daughter No problems noted. Sister Diabetes CHF (congestive heart failure) Family history of problems with anesthesia: No Surgical History Surgical History Hx of colonoscopy History of section History of tubal ligation History of cholecystectomy History of tonsillectomy History of Problems with Anesthesia: No Social History Social History Household Members: None Housing: House Are you a primary primary health care nurse to a significant other at home: No Do you presently have visiting nurse or other home services: No Alcohol intake: current Alcohol intake frequency: holidays/special occasions only Alcohol type: beer and wine Patient Tobacco Use Status: Former Tobacco user Tobacco use type: Cigarette e-Cigarette/Vaping Use: Never Used Second Hand Smoke Exposure: No Use of substances other than those prescribed or required for medical reasons: Yes Substance Use Type: Marijuana Have you been hit, kicked, punched, or otherwise hurt by someone within the past year? If so, by whom?: No Are you DNR?: No Advance Directives: No Advance Directives Information Provided: Yes Recently lost weight without trying: No service: No Current occupational status: employed Current occupational exposures/hazards: No Cognitive needs: No Hearing needs: No Vision needs: Yes Meds Allergies Allergy/AdvReac Type Severity Reaction Status Date / Time Anesthetics - Amide Type - Allergy Severe Redness of Verified 07/31/24 13:36 Select A Skin lisinopril Allergy Unknown pain in Verified 07/31/24 13:36 thighs Exam Airway Mallampati Class: II TM Dist: >3cm Neck ROM: Full Heart: rrr Lungs: cta Assessment and Plan Assessment Anesthesia Assessment: Anesthesia Plan Discussed Final Anesthetic Review Family History of Problems with Anesthesia: No History of Problems with Anesthesia: No NPO: Yes ASA Class: III Final Preanesthetic Review: No Changes in Pt Med Stat, Meds/Allgs Chart Reviewed, Consent Obtained/Reviewed and Anes Risks/Benef Reviewed Patient Risk: Intermediate Procedure Risk: Low Anesthetic Plan Anesthetic Plan: MAC: Disposition: Standard PACU
[2024-08-23 10:05] VITALS: BP 107/61; PULSE 55; RESP 16; TEMP 36.6; O2SAT 97; BMI 30.9
[2024-08-23] MEDS: Lactated Ringers 1,000 ML 100 ML IVCONT (10:16)
--- NOTE | 2024-08-23 11:46 | MHC.SHP ---
Pre-Procedural Eval Section A - 24 Hr Update-Section A only Date of Service: 08/23/24 Section B - Complete if H&P > 30 days Chief Complaint: screening Details of Present Illness: CKD (chronic kidney disease) stage 3, GFR 30-59 ml/min Asthma Low kidney function Allergic rhinitis Smoking history Sciatic nerve pain Benign essential HTN Surgical History Hx of colonoscopy History of section History of tubal ligation History of cholecystectomy History of tonsillectomy Allergies: Allergies Allergy/AdvReac Type Severity Reaction Status Date / Time Anesthetics - Amide Type - Allergy Severe Redness of Verified 07/31/24 13:36 Select A Skin lisinopril Allergy Unknown pain in Verified 07/31/24 13:36 thighs Review of Systems Review of Systems Comment: Ten point ROS negative Exam Exam Comment: Gen appear: No acute distress HEENT: no icterus Chest: No overt resp distress Abd: soft, nontender, nondistended Psych: Stable affect, answering questions appropriately Neuro: A/Ox3 noted to move all extremities spontaneously Ext: no peripheral edema Plan Diagnosis/Plan: Unchanged I have reviewed the history and physical and performed a pertinent physical examination on my patient. No changes have occurred unless specified. Time Spent With Patient Time: Total time managing care of this patient today ____ minutes.
--- NOTE | 2024-08-23 12:15 | P.OPN-COLO_ITS ---
Colonoscopy Operative Note Operative Note Date of Service: 08/23/24 Narrative: Procedure: Colonoscopy Indication: Screening Endoscopist: Corinne Najera MD Anesthesia Provider: Felicitas Be CRNA Anesthesia type: MAC Instrument: Olympus [id number]-H190L Consent: Indication, risks vs benefits, and alternatives were discussed with the patient who gave written informed consent to proceed. EKG, pulse, pulse oximetry and blood pressure were monitored throughout the procedure. Please see anesthesia flowsheet. Procedure: The patient was brought to the procedure room and placed in the left lateral decubitus position. IV medications were administered by the anesthesia provider in attendance. A digital rectal exam was performed which was abnormal due to finding of hemorrhoids. A distal attachment cap was affixed to the tip of the colonoscope which was then inserted through the anus and advanced through the colon to the cecum at 65 cm,and terminal ileum. Appendiceal orifice and ileocecal valve were identified. Mucosa was carefully examined under high definition white light as the instrument was slowly withdrawn in a retrograde panoramic fashion. Retroflexion was performed in ascending colon and rectum. The procedure was not difficult. There were no immediate obvious complications. The quality of the prep was BBPS: 2+3+3 = adequate Withdrawal time 9 minutes. Limitations: No limitations. Findings: Mucosa: Normal to cecum and terminal ileum. Protruding lesions: * 3 sessile polyp of size 5-7 mm in sigmoid colon. Cold snare polypectomy was performed. The polyp was completely removed and retrieved. * Large internal hemorrhoids without stigmata of recent bleeding. Excavated lesions: * Mild to moderate diverticulosis of left colon. Impression: 1. Normal colon and terminal ileum mucosa 2. Total of 3 polyps removed 3. External and internal hemorrhoids 4. Diverticulosis Recommendations: - Follow path results. - Repeat colonoscopy in 3 years if all polyps are adenoma, otherwise 5-7 years.
[2024-08-23 12:19] VITALS: BP 89/39; PULSE 71; RESP 16; TEMP 36.1; O2SAT 97
[2024-08-23 12:34] VITALS: BP 95/50; PULSE 69; RESP 18; TEMP 36.8; O2SAT 96
== END 2024-08-23 13:22 | disposition home or self-care (01) ==
PROVIDERS: PCP Internal Medicine; Visit Provider Internal Medicine
PROC: 0DJD8ZZ Inspection of Lower Intestinal Tract, Via Natural or Artificial Opening Endoscopic (ICD-10-PCS; CPT 45378; principal; 2024-08-23 11:30)
DX: Z12.11 Encounter for screening for malignant neoplasm of colon (principal); K63.5 Polyp of colon; K57.30 Diverticulosis of large intestine without perforation or abscess without bleeding; K64.4 Residual hemorrhoidal skin tags; K64.8 Other hemorrhoids
CPT/HCPCS: 45385; 88305; J2704

== ENCOUNTER → 2024-08-23 09:45 | Outpatient (BNV) | payer BC, SELFPAY | PROVIDERS: PCP Internal Medicine; Visit Provider Internal Medicine | DX: Z12.11 Encounter for screening for malignant neoplasm of colon (principal); K63.5 Polyp of colon; K64.8 Other hemorrhoids; K57.30 Diverticulosis of large intestine without perforation or abscess without bleeding | CPT/HCPCS: 45385 ==

== ENCOUNTER → 2024-09-13 15:56 | Outpatient (BNVA) | payer BC, SELFPAY | PROVIDERS: PCP Internal Medicine; Visit Provider Internal Medicine ==

== ENCOUNTER 2024-10-26 11:34 | Outpatient (REF) | payer BC, SELFPAY ==
[2024-10-26 11:50] LABS: MANUAL DIFF FLAG NO
[2024-10-26 12:30] LABS: Basophils Absolute Auto 0.1 X10*3/uL (0.0-0.2); Basophils Percent Auto 0.8 % (0-2); Eosinophils Absolute Auto 0.6 X10*3/uL (0.0-0.4); Eosinophils Percent Auto 6.8 % (0-4); Hematocrit 40.2 % (37.0-47.0); Hemoglobin 13.3 g/dl (12.0-16.0); Imm Gran Abs Auto 0.02 X10*3/uL (0.00-0.03); Imm Gran Pct Auto 0.2 % (0.0-0.4); Lymphocytes Absolute Auto 4.3 X10*3/uL (1.2-4.9); Lymphocytes Percent Auto 45.8 % (20-40); Mean Corpuscular HGB Conc 33.1 g/dl (31.0-35.0); Mean Corpuscular Hemoglobin 29.4 pg (27.0-33.0); Mean Corpuscular Volume 88.7 fL (80.0-98.0); Mean Platelet Volume 10.3 fL (9.4-12.3); Monocytes Percent Auto 10.1 % (2-11); Neutrophils Absolute Auto 3.4 x10*3/uL (2.0-8.3); Neutrophils Percent Auto 36.3 % (45-73); Platelet Count 323 X10*3/uL (160-400); Red Blood Count 4.53 X10*6/uL (4.20-5.50); Red Cell Distribution Width 13.2 % (11.0-16.0); White Blood Count 9.5 X10*3/uL (4.8-10.8)
[2024-10-26 12:35] LABS: Appearance Urine Cloudy; Color Urine Dark Yellow; Glucose Urine UA Negative (Negative); Leukocyte Esterase Urine Negative (Negative); Nitrite Urine Negative (Negative); PH 5.5 (5.0-9.0); Specific Gravity - Urine 1.025 (1.005-1.025); UMIC TRIGGER UA YES; Urine Blood Negative (Negative); Urine Ketones Negative (Negative); Urine Protein 30 (1+) mg/dL (Neg-Trace)
[2024-10-26 12:42] LABS: Bacteria Urine 2+ (None Seen); Hyaline Casts Urine 0-2 /LPF (0-2); RBC Urine 0-2 /HPF (0-2); Squamous Epithelial Cell Urine >20 /HPF (0-2); WBC Urine 0-5 /HPF (0-5)
[2024-10-26 13:06] LABS: Anion Gap 10 (12-20); Blood Urea Nitrogen 22 mg/dL (9-16); Calcium 9.3 mg/dL (8.4-10.2); Carbon Dioxide 30 mmol/L (22-29); Chloride 104 mmol/L (96-108); Estimated Glomerular Filt Rate 55; Potassium 3.3 mmol/L (3.3-5.1); Sodium 141 mmol/L (135-145)
[2024-10-26 13:06] LABS: Creatinine Urine 399.87 mg/dL; Protein/Creatinine Ratio, Ur 0.07 (<0.2); Total Protein Urine Random 28 mg/dL (<12)
[2024-10-31 08:30] LABS: Cystatin C 2.16 (H); eGFR (Cystatin C) 25 (L)
== END 2024-10-26 11:35 | disposition home or self-care (01) ==
LOC: HO.LAB 11:34
PROVIDERS: PCP Internal Medicine; Visit Provider Internal Medicine Nephrology
DX: N18.32 Chronic kidney disease, stage 3b (principal)
CPT/HCPCS: 36415; 80051; 81001; 82043; 82310; 82565; 82570; 82610; 84156; 84520; 85025

== ENCOUNTER 2024-11-19 16:13 | Outpatient (AMB) | payer BC, SELFPAY ==
--- NOTE | 2024-11-19 16:25 | A.OFFPC_ITS ---
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 Accompanied by: Self / Same As Patient Allergies Anesthetics - Amide Type - Select A Allergy (Severe, Verified 11/19/24 16:38) Redness of Skin lisinopril Allergy (Unknown, Verified 11/19/24 16:38) pain in thighs Medication List - Last Reconciled 11/19/24 by Terri Manuel MD albuterol sulfate 2.5 mg (3 mL) PO Q4-6H PRN atenolol 50 mg PO DAILY atorvastatin 20 mg PO BEDTIME 90 days hydrochlorothiazide 25 mg PO DAILY 90 days hydrocortisone 1% (Anti-Itch (hydrocortisone)) 1 appl topical TID PRN 30 days nebulizers (AeroEclipse II Nebulizer) As directed umeclidinium-vilanterol 62.5-25 mcg/actuation (Anoro Ellipta) 1 inh inhalation DAILY 30 days Tobacco use date assessed: 11/19/24 Fall risk assessment: No Falls in past year Last assessed Fall Risk: 11/19/24 Dental Screening Dental Screen Date: 11/19/24 Did you have a dental visit in the last 12 months?: No Did you have a dental problem in the last 6 months where you did not have access to dental care?: No Was dental information given to patient?: Patient has dentist HPI HPI Comments History of Present Illness Details The patient is a 64 year old female presenting with an annual physical examination. She has a history of essential hypertension with recent blood pressure readings reported as borderline at 139/130 mmHg. The patient noted that her kidney doctor suggested an increase in her antihypertensive prescription due to elevated readings and her request to switch from hydrochlorothiazide to a stronger antihypertensive was discussed. She has a history of hyperplastic colonic polyps, last assessed via colonoscopy last year, which were deemed benign with a recommended follow-up in 10 years. She was diagnosed with Chronic Kidney Disease, Stage 3, and follows dietary management to control this condition. The patient reports a history of depression, particularly related to multiple recent family losses, impacting her emotional health. Lymphadenopathy with swollen and painful lymph nodes, potential cystic formations, and concern for Mark-Lamb virus due to past symptoms were also discussed. The patient has discontinued lisinopril due to an allergic reaction characterized by thigh pain. Additionally, she experiences seasonal skin rashes, which are reportedly improving with current management. - Colonoscopy done last year showing john ign hyperplastic polyps; follow-up in 10 years - Mammogram performed 2023 and was negat sommer. - Pap smear completed in 2022 - Pneumonia and RSV vaccines were admini stered at [facility] in August last year - She has not received a tetanus booster since 2007 and was advised on the need for it every 10 years - Blood pressure self-monitoring discuss ed, with recent readings ranging between 130-139 mmHg - Total blood work was last done in [facility], showing elevated lymphocytes and eosinophils - Lipid profile will be assessed as it w as previously not done [facility] Medical History (Updated 11/19/24 @ 19:35 by Terri Manuel MD) CKD (chronic kidney disease) stage 3, GFR 30-59 ml/min COPD (chronic obstructive pulmonary disease) Asthma Low kidney function Allergic rhinitis Smoking history Sciatic nerve pain Benign essential HTN Surgical History Hx of colonoscopy History of section History of tubal ligation History of cholecystectomy History of tonsillectomy Family History Father Diabetes Hypertension CVD (cardiovascular disease) Mother Diabetes Hypertension CAD (coronary artery disease) Stroke Maternal Aunt Myocardial infarction Paternal Aunt Cancer Paternal Uncle Cancer Son No problems noted. Daughter No problems noted. Sister Diabetes CHF (congestive heart failure) Social History (Updated 11/19/24 @ 16:46 by Terri Manuel MD) Household Members: None Housing: House Are you a primary customer care manager to a significant other at home: No Do you presently have visiting nurse or other home services: No Alcohol intake: former Patient Tobacco Use Status: Former Tobacco user Tobacco use type: Cigarette e-Cigarette/Vaping Use: Never Used Second Hand Smoke Exposure: No Substance Use Type: Marijuana service: No Current occupational status: employed Current occupational exposures/hazards: No Cognitive needs: No Hearing needs: No Vision needs: Yes Questionnaire PHQ-9 Over the last 2 weeks, how often have you been bothered by any of the following problems? 1. Little interest or pleasure in doing things: several days 2. Feeling down, depressed, or hopeless: several days 3. Trouble falling or staying asleep, or sleeping too much: several days 4. Feeling tired or having little energy: not at all 5. Poor appetite or overeating: not at all 6. Feeling bad about yourself - or that you are a failure or have let yourself or your family down: not at all 7. Trouble concentrating on things, such as reading the newspaper or watching television: not at all 8. Moving or speaking so slowly that other people could have noticed. Or the opposite - being so fidgety or restless that you have been moving around a lot more than usual: not at all 9. Thoughts that you would be better off or of hurting yourself in some way: not at all Total score: 3 Depression Screening Interpretation: Positive Depression Screening Follow-up: Existing condition and Follow-up Visit Requested Depression Screening Done: Yes 18140 - PHQ-9 Billing: Yes Source: Developed by Drs. Leoncio Fuentes, Laura Negrete, Dusty Matias and colleagues, with an educational greta from [employer]. Thrive Questionnaire Date Thrive assessed: 11/19/24 I am a: Patient What is your living situation today?: I have a steady place to live Within the past 12 months, did the food you bought not last and you didn't have the money to get more?: Never true Within the past 12 months, did you worry whether your food would run out before you got money to buy more?: Never true Do you have trouble paying for medicines?: No Do you have trouble getting transportation to medical appointments?: No Do you have trouble paying your heating and electricity bill?: No Do you have trouble taking care of your child, family member or friend?: No Do you have trouble with day-to-day activities such as bathing, preparing meals, shopping, managing finances, etc.?: No Are you currently unemployed and looking for a job?: No Are you interested in more education?: No Please select the resources that you would like help with: None Currently or been in a relationship where the following occur: No concerns reported THRIVE Score: 0 AUDIT C Alcohol Use Questionnaire (AUDIT-C) 1. How often do you have a drink containing alcohol?: Never Total Score: 0 RIYA-7 AMB Questionnaire RIYA-7 Date RIYA - 7 assessed: 11/19/24 Feeling nervous, anxious, or on edge: 1 = Several days Not being able to stop or control worryin = Not at all Worrying too much about different things: 0 = Not at all Trouble relaxin = Not at all Being so restless that it is hard to sit still: 0 = Not at all Becoming easily annoyed or irritable: 0 = Not at all Feeling afraid as if something awful might happen: 0 = Not at all Total RIYA-7 score (0-4 normal; 5-9 mild; 10-14 moderate; 15-21 severe): 1 Source: Developed by Drs. Leoncio Fuentes, Laura Negrete, Dusty Matias and colleagues, with an educational greta from [employer]. Review of Systems Const All systems reviewed & are unremarkable except as noted in HPI and below Card Denies chest pain at rest, Denies chest pain with activity, Denies edema, Denies irregular heart rhythm, Denies claudication, Denies dyspnea, Denies dyspnea on exertion, Denies orthopnea, Denies paroxysmal nocturnal dyspnea and Denies slow heart rate Resp Denies cough, Denies dyspnea and Denies dyspnea on exertion Physical exam (Primary Care) Vital Signs: Last Vital Signs BP 146/80 H 11/19/24 16:29 BMI result Body Mass Index 31.3 BMI Assessment/Plan discussion: High BMI High, discussed plan: lifestyle, weight reduction, dietary and physical activity Tobacco/Smoking Status: Tobacco use Status Tobacco use date assessed 11/19/24 11/19/24 16:33 Patient Tobacco Use Status Former Tobacco user 11/19/24 16:45 Tobacco use type Cigarette 11/19/24 16:45 e-Cigarette/Vaping Use Never Used 11/19/24 16:45 PHQ-9: PHQ-9 Score PHQ-9: Total score 3 11/19/24 17:26 Depression Screening Interpretation: Positive Depression Screening Follow-up: Existing condition and Follow-up Visit Requested Thrive Assessment: Date of Thrive Assessment Date Thrive assessed 11/19/24 11/19/24 16:27 Currently or been in a relationship where the following occur: No concerns reported HENMT Head: Yes normal to inspection, Yes normocephalic and Yes atraumatic Ears: external ears normal Eyes General: appearance normal, both eyes and all related structures Eyelids: Yes eyelids normal Conjunctivae: conjunctivae normal Neck Neck: Yes normal visual inspection and Yes supple Resp Effort & Inspection: normal respiratory effort Auscultation: clear to auscultation bilaterally Cardio Jugular venous distension: no JVD Rate: regular rate Rhythm: regular rhythm Heart sounds: S1 normal heart sound present and S2 normal heart sound present GI Inspection: Yes normal to inspection Palpation (GI): Soft to palpation and nontender Auscultation: normal bowel sounds Skin General skin exam: no rashes or lesions noted Neuro General: no focal motor deficits Extrem General: Yes full ROM Psych Appearance: grossly normal Office Procedures Flu Questionnaire Does the patient have a severe egg allergy?: No Immunizations Fluarix Triv 3916-3097 (PF) 45 mcg (15 mcg x 3)/0.5 mL IM syringe Performing Provider: Terri Manuel MD [facility] Documented (not given) by: BERTA Schafer on 11/19/24 17:27 Reason Not Given: Patient Refused Coding Level of Care Code Est Pt Level 4 (97082) Est Pt Prev Care >65y(14800) Diagnoses Physical exam Z00.00 Lymphocytosis D72.820 Cervical lymphadenopathy R59.0 Asthma J45.909 Essential hypertension I10 CKD (chronic kidney disease) stage 3, GFR 30-59 ml/min N18.30 Additional Codes PHQ-9 - 36618 - PHQ-9 Billing: Yes ([id number]) Time Spent (min) 35 Assessment & Plan Assessment & Plan (1) Physical exam: Code(s): Z00.00 - Encounter for general adult medical examination without abnormal findings Category: Medical (2) Lymphocytosis: Code(s): D72.820 - Lymphocytosis (symptomatic) Category: Medical (3) Cervical lymphadenopathy: Code(s): R59.0 - Localized enlarged lymph nodes Category: Medical (4) Asthma: Comment: MILD INTERMITTENT. TX: ALBUTEROL HFA 2 PUFFS Q 4-6 HOURS P.R.N. OR ALBUTEROL 2.5 MG SOLUTION IN THE NEBULIZER Q 4-6 HOURS P.R.N. Code(s): J45.909 - Unspecified asthma, uncomplicated Category: Medical (5) Essential hypertension: Code(s): I10 - Essential (primary) hypertension Category: Medical (6) CKD (chronic kidney disease) stage 3, GFR 30-59 ml/min: Code(s): N18.30 - Chronic kidney disease, stage 3 unspecified Category: Medical Plan - Essential Hypertension: Adjust medication from hydrochlorothiazide to losartan 25 mg. - Chronic Kidney Disease: Continue dietary management; monitor renal function; replace hydrochlorothiazide with losartan. - Lymphadenopathy: Conduct EBV serological testing; refer to Dr. Mckinney for further lymph node evaluation. - Depression: Continue to provide emotional support; consider mental health counseling if symptoms persist. - Vaccinations: Recommend tetanus booster. - Skin Rashes: Continue current management with potential need for dermatological assessment if unresolved. Patient was informed and verbally consented to the use of an ambient scribe for clinic note documentation during this visit. I discussed the likely diagnosis of essential hypertension and the management plan, including the substitution of hydrochlorothiazide with losartan. We reviewed the chronic kidney disease management plan, emphasizing renal-friendly dietary practices. I informed the patient about her lymph node swelling, linking it to potential viral etiology and recommending an EBV serological test. I reinforced the importance of completing annual screenings and vaccinations, particularly the overdue tetanus booster. Potential benefits and risks of switching her antihypertensive medication were discussed, with patient consenting to losartan. Orders: Orders Lipid Panel Today E78.5 - Hyperlipidemia, unspecified EBV DNA QL PCR Today D72.820 - Lymphocytosis (symptomatic) Comprehensive Faith. Panel Fast Today J45.909 - Unspecified asthma, uncomplicated Influenza [id number] Immunization Today Z23 - Encounter for immunization Referrals Ear/Nose/Throat Referral R59.0 - Localized enlarged lymph nodes Medications: New losartan 25 mg PO DAILY 90 tabs 1RF 90 days Discontinued hydrochlorothiazide Discontinued Reason: Order 25 mg PO DAILY 90 days 90 tabs 1RF Patient Instructions: - Monitor blood pressure regularly; report any significant changes. - Schedule a follow-up with Dr. Mckinney for lymph node evaluation. - Maintain dietary practices suited for kidney health. - Use OTC ear wax removal agents as discussed. - Consider aloe vera for any unresolved skin rashes. - Follow up with recommended vaccinations, including tetanus. - Contact the office if symptoms worsen or new symptoms develop.
[2024-11-19 16:29] VITALS: BP 146/80; BMI 31.3
--- OUTSIDE RECORDS SUMMARY | 2024-11-19 19:48 | XMS_ITS | Encounter Summary ---
Author Organization [facility] [place], Address [address] [place] [address] Phone Care Team Providers Care Candy Maker Name Role Phone Terri Botello MD Primary Care Provider [phone] Encounter Details Date Type Department Care Team (Late st Contact Info) Description 10/31/2024 Documentation Only [facility] [address] [place] [phone] [place] [address] [place] [phone] Social History Tobacco Use Types Packs/Day Years Used Date Smoking Tobacco: Former Cigarettes Comments Unknown Sex and Gender Information Value Date Recorded Sex Assigned at Female 08/11/2023 10:39 AM EDT Legal Sex Female 10:40 AM EDT Gender Identity Female 08/11/2023 10:39 AM EDT Sexual Orientation Straight 08/11/2023 10 :39 AM EDT documented as of this encounter Plan of Treatment Upcoming Encounters Date Type Department Care Team (Late st Contact Info) Description 04/18/2025 2:00 PM EDT Office Visit [facility] [address] [place] [phone] Phillip Huang MD [address] [place] [address] documented as of this encounter Visit Diagnoses Not on filedocumented in this encounter Care Teams Candy Maker Relationship Specialty Start Date End Date Terri Botello MD [address] PCP - General Internal Medicine 06/15/23 documented as of this encounter
--- OUTSIDE RECORDS SUMMARY | 2024-11-19 19:48 | XMS_ITS | Clinical Summary ---
Author Organization [facility] [place], Address [address] [place] [address] Phone Care Team Providers Care Tailor Women'S Garment Alteration Name Role Phone Terri Botello MD Primary Care Provider [phone] Allergies Active Allergy Reactions Criticality Noted Date Comments Anesthetics, Amide 12/26/2023 Lisinopril 12/26/2023 Medications atenolol (TENORMIN) 50 MG tablet Take 50 mg by mouth 1 (one) time each day Active atorvastatin (LIPITOR) 20 MG tablet Take 20 mg by mouth every night Active fexofenadine (SERA) 60 MG tablet Take 60 mg by mouth in the morning and 60 mg in the evening. Active hydroCHLOROthia zide 25 MG tablet Take 25 mg by mouth 1 (one) time each day Active Active Problems Problem Noted Date Diagnosed Date Benign essential hypertension 12/26/2023 Mixed hyperlipidemia 12/26/2023 Serum creatinine above reference range Stage 3a chronic kidney disease 12/26/2023 Encounters Date Type Department Care Team Description 10/31/2024 Documentation Only [facility] [place], [address] [place] [address] Lester Barnes [place] 10/30/2024 Documentation Only [facility] [address] [place] [phone] Lester Barnes [place] 10/18/2024 2:00 PM EST Office Visit [facility] [place], [address] [place] [phone] Phillip Huang MD Stage 3b chronic kidney disease (HCC) (Primary Dx) from Last 3 Months Family History Medical History Relation Comments Diabetes Father Heart disease Father Hypertension Father Cancer Father's Brother Cancer Father's Sister Coronary artery disease Mother Diabetes Mother Hypertension Mother Stroke Mother Heart attack Mother's Sister Relation Status Comments Father Father's Brother Father's Sister Mother Mother's Sister Social History Tobacco Use Types Packs/Day Years Used Date Smoking Tobacco: Former Cigarettes Comments Unknown Sex and Gender Information Value Date Recorded Sex Assigned at Female 08/11/2023 10:39 AM EDT Legal Sex Female 10:40 AM EDT Gender Identity Female 08/11/2023 10:39 AM EDT Sexual Orientation Straight 08/11/2023 10 :39 AM EDT Last Filed Vital Signs Vital Sign Reading Time Taken Comments Blood Pressure 146/81 10/18/2024 1:45 PM EST Pulse 67 10/18/2024 1:45 PM EST Temperature - - Respiratory Rate - - Oxygen Saturation - - Inhaled Oxygen Concentration - - Weight - - Height - - Body Mass Index - - Plan of Treatment Upcoming Encounters Date Type Department Care Team (Late st Contact Info) Description 04/18/2025 2:00 PM EDT Office Visit [facility] [place], [address] [place] [phone] Phillip Huang MD [address] [place] [address] [place] [phone] Health Maintenance Due Date Last Done Comments Breast Cancer Screening 1960 Pneumococcal Vaccine: 65+ Years (1 of 2 - PCV) 1964 Colorectal Cancer Screening: Annual FOBT 2007 Colorectal Cancer Screening: Colonoscopy 2007 Colorectal Cancer Screening: Sigmoidoscopy 2007 Influenza Vaccine Completed 08/06/2024, 08/08/2023 Hepatitis B Vaccine Aged Out No longe r eligible based on patient's age to complete this topic Procedures Procedure Name Priority Date/Time Associated Diagnosis Comments ALBUMIN, URINE, RANDOM Routine 10/26/2024 12:27 PM EST URINALYSIS Routine 10/26/2024 12:27 PM EST PROTEIN / CREATININE RATIO, URINE Routine 10/26/2024 12:27 PM EST Stage 3b chronic kidney disease (HCC) URINALYSIS WITH MICROSCOPIC Routine 10/26/2024 12:27 PM EST Stage 3b chronic kidney disease (HCC) CALCIUM Routine 10/26/2024 11:49 AM EST CREATININE, BLOOD Routine 10/26/2024 11: 49 AM EST BUN Routine 10/26/2024 11:49 AM EST ELECTROLYTE PANEL Routine 10/26/2024 11: 49 AM EST CYSTATIN C WITH EGFR Routine 10/26/2024 11:49 AM EST Stage 3b chronic kidney disease (HCC) CBC AND DIFFERENTIAL Routine 10/26/2024 11:49 AM EST Stage 3b chronic kidney disease (HCC) from Last 3 Months Results * (ABNORMAL) Protein, Total, Random Urine w/Creatinine (Protein/Creat Ratio) (10/26/2024 12:27 PM EST) Protein Urine Random 28(H) <12 mg/dL See order comments Protein/Creatin ine Ratio, Urine 0.07 <0.2 See order comments Comment: The spot urine protein:creatinine ratio may increase to 0.3 during normal . Urine (Urine, Clean Catch) 10/26/2024 12:27 PM EST 10/26/2024 12:27 PM EST us Phillip Huang MD LAB URINE ORDERABLES Final Re sult Performing Organization Address [facility] de Phone Number [place] See order comments [place] [address] * Albumin, urine, random (10/26/2024 12:27 PM EST) Creatinine, Urine 399.87 mg/dL Se e order comments Urine Microalbumin 48.0 mg/L See order comments Microalbumin/Crea tinine Ratio 12.0 <30 ug/mg cr See order comments Comment: ?Albumin/Creatinine Ratio Reference Ranges: ?Normal: < 30 ug/mg creatinine ?Microalbuminuria: ??30 - 300 ug/mg creatinine Clinical Albuminuria: ??> 300 ug/mg creatinine 10/26/2024 12:2 7 PM EST 10/26/2024 12:27 PM EST Phillip Huang MD LAB URINE ORDERABLES Final [facility] Performing Organization Address [facility] de Phone Number [place] See order comments [place] [address] * (ABNORMAL) Urinalysis with microscopic (10/26/2024 12:27 PM EST) Pathologist [facility] Color Urine Dark Yellow See or xiang comments Appearance Urine Cloudy See order comments pH Urine 5.5 5.0 - 9.0 See order comments Glucose Urine Negative Negative mg/dL See order comments Blood, Urine Negative Negative See ord er comments Specific [place] Urine 1.025 1.005 - 1.025 See order comments Protein Urine 30 (1+)(A) Neg-Trace mg/dL See order comments Ketones, Urine Negative Negative mg/dL See order comments Nitrite, Urine Negative Negative See o rder comments Leukocyte Esterase Urine Negative Negative See order comments RBC, Urine 0-2 0 - 2 /HPF See orde r comments WBC 0-5 0 - 5 /HPF See order comments Squamous Epithelial, Urine >20 0 - 2 /HPF See order comments Bacteria, Urine 2+ None Seen See order comments Hyaline Casts, Urine 0-2 0 - 2 /LPF See order comments Urine (Urine, Clean Catch) 10/26/2024 12:27 PM EST 10/26/2024 12:27 PM EST Phillip Huang MD LAB URINE ORDERABLES Final Re sult Performing Organization Address [facility] de Phone Number [place] See order comments [place] [address] * (ABNORMAL) Urinalysis (10/26/2024 12:27 PM EST) Color Urine Dark Yellow See or xiang comments Appearance Urine Cloudy See order comments pH Urine 5.5 5.0 - 9.0 See order comments Glucose Urine Negative Negative mg/dL See order comments Blood, Urine Negative Negative See ord er comments Specific [place] Urine 1.025 1.005 - 1.025 See order comments Protein Urine 30 (1+)(A) Neg-Trace mg/dL See order comments Ketones, Urine Negative Negative mg/dL See order comments Nitrite, Urine Negative Negative See o rder comments Leukocyte Esterase Urine Negative Negative See order comments 10/26/2024 12:2 7 PM EST 10/26/2024 12:27 PM EST Phillip Huang MD LAB URINE ORDERABLES Final Re sult Performing Organization Address [facility] Phone Number [place] See order comments [place] [address] * Creatinine (10/26/2024 11:49 AM EST) Creatinine Serum 1.01 0.5 - 1.4 mg/dL See order comments eGFR 55 See order comments Comment: Chronic Kidney Disease: ??Estimated GFR < 60 mL/min/1.73m2 Severe Kidney Disease: ??Estimated GFR < 15 mL/min/1.73m2 10/26/2024 11:4 9 AM EST 10/26/2024 11:49 AM EST Phillip Huang MD LAB BLOOD ORDERABLES Final Re sult Performing Organization Address [facility] de Phone Number [place] See order comments [place] [address] * Cystatin C w/GFR (10/26/2024 11:49 AM EST) Pathologist [facility] Cystatin C 2.16 (H) See order comments Comment: REFERENCE RANGE: 0.52-1.14 mg/L THIS TEST PERFORMED AT: [facility] [address] [facility] [place] [phone] MORNING SHOW PRODUCER: YESENIA MONROE MD, PHD eGFR by Cystatin C 25 (L) See order comments Comment: REFERENCE RANGE:>=60 mL/min/1.73mE2 THIS TEST PERFORMED AT: [facility] [address] [place] [address] [phone] MORNING SHOW PRODUCER: YESENIA MONROE MD, PHD 10/26/2024 11:4 9 AM EST 10/26/2024 11:49 AM EST us Phillip Huang MD LAB BLOOD ORDERABLES Final Re sult [place] See order comments [place] [address] * (ABNORMAL) CBC and Differential (10/26/2024 11:49 AM EST) [facility] WBC 9.5 4.8 - 10.8 X10*3/uL See order comments RBC 4.53 4.20 - 5.50 X10*6/uL See order comments Hgb 13.3 12.0 - 16.0 g/dl See order comments Hematocrit 40.2 37.0 - 47.0 % See order comments MCV 88.7 80.0 - 98.0 fL See order comments MCH 29.4 27.0 - 33.0 pg See order comments MCHC 33.1 31.0 - 35.0 g/dl See order comments RDW 13.2 11.0 - 16.0 % See order comments Platelets 323 160 - 400 X10*3/uL See order comments MPV 10.3 9.4 - 12.3 fL See order comments Neutrophils % Auto 36.3(L) 45 - 73 % See order comments Immature Granulocytes 0.2 0.0 - 0.4 % See order comments Lymphocytes Relative 45.8(H) 20 - 40 % See order comments Monocytes 10.1 2 - 11 % See order comments Eosinophils Relative 6.8(H) 0 - 4 % See order comments Basophils Relative 0.8 0 - 2 % See order comments nRBC Count 0.0 0.0 - 0.2 /100WBC See order comments Neutrophils Absolute 3.4 2.0 - 8.3 x10*3/uL See order comments Immature Grans (Absolute) 0.02 0.00 - 0.03 X10*3/uL See order comments Lymphocytes Absolute 4.3 1.2 - 4.9 X10*3/uL See order comments Monocytes Absolute 1.0 0.1 - 1.2 X10*3/uL See order comments Eosinophils Absolute 0.6(H) 0.0 - 0.4 X10*3/uL See order comments Basophils Absolute 0.1 0.0 - 0.2 X10*3/uL See order comments NRBC Absolute 0.000 0.0 - 0.012 X10*3/uL See order comments Blood (Blood, Venous) 10/26/2024 11:49 AM EST 10/26/2024 11:49 AM EST Phillip Huang MD LAB BLOOD ORDERABLES Final Re sult Performing Organization Address [facility] Co de Phone Number [place] See order comments [place] [address] * (ABNORMAL) BUN (10/26/2024 11:49 AM EST) BUN 22(H) 9 - 16 mg/dL See order comments 10/26/2024 11:4 9 AM EST 10/26/2024 11:49 AM EST Phillip Huang MD LAB BLOOD ORDERABLES Final Re sult Performing Organization Address [facility] Co de Phone Number [place] See order comments [place] [address] * Calcium (10/26/2024 11:49 AM EST) Calcium 9.3 8.4 - 10.2 mg/dL See order comments 10/26/2024 11:4 9 AM EST 10/26/2024 11:49 AM EST Phillip Huang MD LAB BLOOD ORDERABLES Final Re sult Performing Organization Address City/[facility]/ZIP Co de Phone [facility] See order comments [place] [address] * (ABNORMAL) Electrolyte panel (10/26/2024 11:49 AM EST) Sodium 141 135 - 145 mmol/L See order comments Potassium 3.3 3.3 - 5.1 mmol/L See order comments Chloride 104 96 - 108 mmol/L See order comments Bicarbonate (CO2) 30(H) 22 - 29 mmol/L See order comments Anion Gap 10(L) 12 - 20 See order comments 10/26/2024 11:4 9 AM EST 10/26/2024 11:49 AM EST Phillip Huang MD LAB BLOOD ORDERABLES Final Re sult Performing Organization Address [facility] Co de Phone Number [facility] See order comments [place] [address] from Last 3 Months Insurance [facility] Care Teams Tailor Women'S Garment Alteration Relationship Specialty Start Date End Date Terri Botello MD [address] [place], [place] PCP - General Internal Medicine 06/15/23
--- OUTSIDE RECORDS SUMMARY | 2024-11-19 19:48 | XMS_ITS | Encounter Summary ---
Author Organization [facility] [place], Address [address] [place] [address] Phone Care Team Providers Care Mercantile Agent Name Role Phone Terri Botello MD Primary Care Provider [phone] Encounter Details Date Type Department Care Team (Late st Contact Info) Description 06/28/2023 Documentation Only [facility] [address] [place] [address] Terri Botello MD [address] [place] [address] Social History Tobacco Use Types Packs/Day Years Used Date Smoking Tobacco: Never Assessed Comments Unknown Sex and Gender Information Value [...] Visit [facility] [address] [place] [phone] Phillip Huang MD [address] [place] [address] [place] [address] documented as of this encounter Visit Diagnoses Not on filedocumented in this encounter Care Teams Mercantile Agent Relationship Specialty Start Date End Date Terri Botello MD [address] [place], [place] PCP - General Internal Medicine 06/15/23 documented as of this encounter
--- OUTSIDE RECORDS SUMMARY | 2024-11-19 19:48 | XMS_ITS | Encounter Summary ---
Author Organization [facility] [place], Address [address] [place] [address] Phone Care Team Providers Care Report Writer Name Role Phone Terri Botello MD Primary Care Provider [phone] Encounter Details Date Type Department Care Team (Late st Contact Info) Description 10/30/2024 Documentation Only [facility] [address] [place] [phone] [place] [address] [place] [phone] Social History Tobacco Use Types Packs/Day Years [...] Visit [facility] [address] [place] [phone] Phillip Huang MD [address] [place] [address] documented as of this encounter Visit Diagnoses Not on filedocumented in this encounter Care Teams Report Writer Relationship Specialty Start Date End Date Terri Botello MD [address] PCP - General Internal Medicine 06/15/23 documented as of this encounter
== END 2024-11-19 17:36 | disposition home or self-care (01) ==
PROVIDERS: PCP Internal Medicine; Visit Provider Internal Medicine
DX: Z00.00 Encounter for general adult medical examination without abnormal findings (principal); I12.9 Hypertensive chronic kidney disease with stage 1 through stage 4 chronic kidney disease, or unspecified chronic kidney disease; N18.30 Chronic kidney disease, stage 3 unspecified; D72.820 Lymphocytosis (symptomatic); R59.0 Localized enlarged lymph nodes; J45.909 Unspecified asthma, uncomplicated

== ENCOUNTER → 2024-11-19 16:13 | Outpatient (BNVA) | payer BC, SELFPAY | PROVIDERS: PCP Internal Medicine; Visit Provider Internal Medicine | DX: Z00.00 Encounter for general adult medical examination without abnormal findings (principal); D72.820 Lymphocytosis (symptomatic); R59.0 Localized enlarged lymph nodes; J45.909 Unspecified asthma, uncomplicated; I12.9 Hypertensive chronic kidney disease with stage 1 through stage 4 chronic kidney disease, or unspecified chronic kidney disease; N18.30 Chronic kidney disease, stage 3 unspecified; R21 Rash and other nonspecific skin eruption; Z79.899 Other long term (current) drug therapy; Z28.21 Immunization not carried out because of patient refusal | CPT/HCPCS: 96127 ==

== ENCOUNTER → 2025-01-03 13:42 | Outpatient (BNVA) | payer BC, SELFPAY | PROVIDERS: PCP Internal Medicine ==

== ENCOUNTER 2025-01-24 09:30 | Emergency (ER) | payer BC, SELFPAY ==
--- NOTE | ~2025-01-24 | CT_ITS ---
EXAMINATION: CT SOFT TISSUE NECK WITH CONTRAST CLINICAL INFORMATION: Right mandibular swelling. Concerning abscess/mental. COMPARISON: April 02, 2016 is not available on PACS. TECHNIQUE: Following the intravenous administration of 60 mL of Omnipaque 350 intravenous contrast, helical imaging was performed in the axial plane with generation of coronal and sagittal reformatted images. No reported immediate complications. This CT examination was performed using dose optimization techniques as appropriate, variously including the following: *Automated exposure control *Adjustment of mA and/or kV according to patient size (this includes techniques or standardized protocols for targeted exams where dose is matched to indication/reason for exam; i.e. extremities or head) *Use of iterative reconstruction technique. DLP: 677 mGy centimeter. FINDINGS: There is a 2 mm calculus in the distal submandibular duct/Heidy's duct, resulting in fluid-filled dilated duct. There are is a cluster of multiple calculi within the proper right submandibular gland with a maximum dimension of 14 mm. There is dilatation of the right submandibular gland acini resulting in asymmetric enlargement of the proper gland with decreased enhancement pattern and edema pattern surrounded the gland beneath the platysma. Skull base, nasopharynx, retropharynx, oropharynx hypopharynx and larynx demonstrated no gross masses or fluid collections. Scrap Hoist Operator spaces parapharyngeal spaces and carotid spaces demonstrated no gross masses. The parotid glands and left submandibular gland demonstrated no sialolithiasis or enhancing lesion. The vessels are patent. Mixed plaques in the carotic bulbs and both ICAs. No dominant nodules in the thyroid gland. Subcentimeter low density in the right thyroid lobe. Bilateral prominent right greater than the left cervical lymph nodes likely reactive. Cervical spondylosis C5-6 and C6-7. Retention cysts versus polyps in the right maxillary sinus. Edentulous, maxilla. Poor dentition mandible. Tympanic cavities and mastoid cells are aerated.. CT/CT soft tissue neck w IV con IMPRESSION: Sialolithiasis and 2 mm obstructing calculus in the distal Warton's duct resulting in sialoadenitis, right submandibular gland. Electronically signed by: Raul Cornelius MD 01/24/2025 12:45 PM EDT
[2025-01-24 09:32] VITALS: BP 151/90; PULSE 77; RESP 20; TEMP 36.5; O2SAT 98; BMI 31.3
--- NOTE | 2025-01-24 10:50 | ED.GENADULT ---
HPI - General Adult General Chief complaint: General Medical Stated complaint: swollen glands Time Seen by Provider: 01/24/25 10:03 Source: patient, RN notes reviewed and old records reviewed Mode of arrival: ambulatory History of Present Illness ED Provider: Arabella Buckner PA-C HPI narrative: 64-year-old female with a past medical history of CKD, COPD, asthma, HTN, presenting to the ED sent in from office complaining of worsening right-sided neck/submandibular swelling and pain x5 days radiating to right ear. Admits was seen at urgent Care prescribed Keflex which she has been taking without relief. Reports difficulty/ inability to swallow secondary to pain and swelling. Denies difficulty breathing, SOB, Recent dental procedures, trauma, drainage from ear, hearing loss Related Data Previous Rx's ?Medication ?Instructions ?Recorded nebulizers (AeroEclipse II #1 ea 09/21/22 Nebulizer) hydrocortisone 1 % topical cream 1 appl topical TID PRN skin 01/25/23 (Anti-Itch (hydrocortisone)) irritation 30 days #28.4 grams albuterol sulfate 2.5 mg/3 mL 2.5 mg (3 mL) PO Q4-6H PRN for 05/27/23 (0.083 %) solution for nebulization wheezing #75 mL atenolol 50 mg tablet 50 mg PO DAILY #90 tabs 04/13/24 atorvastatin 20 mg tablet 20 mg PO BEDTIME 90 days #90 tabs 09/09/24 umeclidinium 62.5 mcg-vilanterol 1 inh inhalation DAILY 30 days #60 09/19/24 25 mcg/actuation powdr for ea inhalation (Anoro Ellipta) losartan 50 mg tablet 50 mg PO DAILY 90 days #90 tabs 12/05/24 amoxicillin 875 mg-potassium 1 tab PO BID 7 days #14 tabs 01/24/25 clavulanate 125 mg tablet hydrocodone 5 mg-acetaminophen 325 1 tab PO Q8H PRN pain, severe 3 01/24/25 mg tablet days #9 tabs Allergies Allergy/AdvReac Type Severity Reaction Status Date / Time Anesthetics - Amide Type - Allergy Severe Redness of Verified 01/24/25 09:37 Select A Skin lisinopril Allergy Unknown pain in Verified 01/24/25 09:37 thighs Review of Systems Review of Systems: Yes all other systems are reviewed and are negative Constitutional: Constitutional: Reports as per [facility] Past Medical History Attestation statement: The following information was validated with the patient. Source: old records reviewed Medical History CKD (chronic kidney disease) stage 3, GFR 30-59 ml/min COPD (chronic obstructive pulmonary disease) Asthma Low kidney function Allergic rhinitis Smoking history Sciatic nerve pain Benign essential HTN Surgical History Hx of colonoscopy History of section History of tubal ligation History of cholecystectomy History of tonsillectomy Family History Family History Father Diabetes Hypertension CVD (cardiovascular disease) Mother Diabetes Hypertension CAD (coronary artery disease) Stroke Maternal Aunt Myocardial infarction Paternal Aunt Cancer Paternal Uncle Cancer Son No problems noted. Daughter No problems noted. Sister Diabetes CHF (congestive heart failure) Social History Social History Household Members: None Housing: House Are you a primary long term care pharmacist to a significant other at home: No Do you presently have visiting nurse or other home services: No Alcohol intake: former Patient Tobacco Use Status: Former Tobacco user Tobacco use type: Cigarette e-Cigarette/Vaping Use: Never Used Second Hand Smoke Exposure: No Substance Use Type: Marijuana service: No Current occupational status: employed Current occupational exposures/hazards: No Cognitive needs: No Hearing needs: No Vision needs: Yes Physical Exam ED Vital Signs: Vital Signs - 24 hr 01/24/25 09:32 01/24/25 13:27 Temperature 97.7 F 98.2 F Pulse Rate 77 71 Respiratory Rate 20 16 Blood Pressure 151/90 H 136/86 Pulse Oximetry 98 99 Oxygen Delivery Method Room Air Room Air BMI result Body Mass Index 31.3 Const General: cooperative, healthy appearing and no acute distress Orientation/consciousness: patient oriented x3 Limitations: no limitations HENMT Other: + right-sided submandibular swelling appreciated, firm, tender to palpation. No overlying erythema or warmth. No fluctuance or induration. Upper and lower dentures, removed. Mild swelling to right intraoral region without erythema, no focal fluctuance or induration. No intraoral tenderness. No trismus Head: Yes normal to inspection and Yes atraumatic Ears: hearing grossly normal bilaterally, external ears normal and unable to visualize TM on the right ( secondary to cerumen impaction) General nose exam: Normal external nose present Mouth: no drooling Throat: Yes posterior oropharynx normal, Yes tonsils normal, Yes uvula midline, No peritonsillar mass, No uvula laterally displaced and No uvular edema Eyes General: appearance normal, both eyes and all related structures EOM: EOMs intact bilaterally Neck Neck: Yes normal visual inspection and Yes no meningeal signs Resp Effort & Inspection: normal respiratory effort, no respiratory distress and no stridor Cardio Rate: regular rate Skin Rashes: no rashes Wounds: no wounds Neuro General: patient oriented x3, tone normal and no meningeal signs Cranial nerves: Yes CN's II-XII intact bilaterally Gait exam (Neuro): Normal gait present Extrem General: Yes normal to inspection Course Course Course Narrative: -labs reassuring CT soft tissue neck w IV con IMPRESSION: Sialolithiasis and 2 mm obstructing calculus in the distal Warton's duct resulting in sialoadenitis, right submandibular gland. > case discussed with ED attending Dr. Zambrano who also evaluated patient. Attempted massage/ milking area however calculi are too large. Patient has follow-up appointment with ENT on Tuesday. Will discharge with p.o. Augmentin, recommended sour foods/hard candies including lemon, and importance of follow-up Tuesday, likely needs surgical intervention. Results discussed with patient including worrisome signs and symptoms and strict return precautions including difficulty or inability to swallow, SOB, throat closing sensation, etc. and when to return to the emergency department. They verbalized understanding and feel safe for discharge at this time. Medications Administered Discontinued Medications Generic Name Dose Route Start Last Admin Trade Name Freq PRN Reason Stop Dose Admin Ampicillin Sodium/Sulbactam 100 mls @ 200 mls/hr 01/24/25 10:39 01/24/25 11:30 Sodium 3 gm/ Sodium Chloride IV 01/24/25 11:08 Infused ONCE ONE Infusion Iohexol 100 ml 01/24/25 11:43 01/24/25 11:43 Iohexol 350 Mg/Ml 100 Ml Infus..Btl IV 01/24/25 11:44 60 ml ONCE ONE Administration Ketorolac Tromethamine 15 mg 01/24/25 10:39 01/24/25 10:57 Ketorolac Tromethamine 15 Mg/Ml Vial IVPUSH 01/24/25 10:40 15 mg ONCE ONE Administration Medical Decision Making Medical Decision Making [facility] Narrative: 64-year-old female with a past medical history of CKD, COPD, asthma, HTN, presenting to the ED sent in from office complaining of worsening right-sided neck/submandibular swelling and pain x5 days radiating to right ear. on exam vital signs stable, NAD, nontoxic appearing, no respiratory distress/compromise, talking in complete sentences, no stridor or drooling, handling secretions. Right submandibular swelling noted, firm, tender to palpation, no intraoral swelling or focal abscess noted. Uvula midline. Concern for deeper dental abscess vs mass vs ?edema. No evidence of cellulitis. 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 Plan: Labs, CT neck, empiric IV antibiotics, re-evaluate Please refer to course for remaining clinical decision making, interpretation of labs/imaging results, and discussions with consultants and/or family members. Differential Diagnosis Differential Diagnoses: The differential diagnosis associated with the presentation includes As above Admission/Observation Consideration of admission/observation: Escalation of care including admission/observation considered Lab Data [facility] Lab Attestation statement: I reviewed the patient's lab results. 01/24/25 10:54 01/24/25 10:54 Labs: Lab Results 01/24/25 Range/Units 10:54 WBC 12.2 H (4.8-10.8) X10*3/uL RBC 4.79 (4.20-5.50) X10*6/uL Hgb 14.2 (12.0-16.0) g/dl Hct 41.9 (37.0-47.0) % MCV 87.5 (80.0-98.0) fL MCH 29.6 (27.0-33.0) pg MCHC 33.9 (31.0-35.0) g/dl RDW 13.2 (11.0-16.0) % Plt Count 327 (160-400) X10*3/uL MPV 9.7 (9.4-12.3) fL Immature Gran % (Auto) 0.2 (0.0-0.4) % Neut % (Auto) 50.9 (45-73) % Lymph % (Auto) 33.9 (20-40) % Gordon % (Auto) 9.4 (2-11) % Eos % (Auto) 4.8 H (0-4) % Baso % (Auto) 0.8 (0-2) % Lymph # (Auto) 4.1 (1.2-4.9) X10*3/uL Gordon # (Auto) 1.1 (0.1-1.2) X10*3/uL Eos # (Auto) 0.6 H (0.0-0.4) X10*3/uL Baso # (Auto) 0.1 (0.0-0.2) X10*3/uL Abs Immat Gran (auto) 0.03 (0.00-0.03) X10*3/uL Absolute Neuts (auto) 6.2 (2.0-8.3) x10*3/uL Absolute Nucleated RBC 0.000 (0.0-0.012) X10*3/uL Nucleated RBC % (auto) 0.0 (0.0-0.2) /100WBC ESR 40 H (0-20) MM/HR Sodium 139 (135-145) mmol/L Potassium 3.8 (3.3-5.1) mmol/L Chloride 105 (96-108) mmol/L Carbon Dioxide 27 (22-29) mmol/L Anion Gap 11 L (12-20) BUN 22 H (9-16) mg/dL Creatinine 0.90 (0.5-1.4) mg/dL Estim Creat Clear Calc 50.2 Estimated GFR > 60 Random Glucose 93 (60-115) mg/dL Calcium 9.8 (8.4-10.2) mg/dL Magnesium 2.0 (1.6-2.6) mg/dL Total Bilirubin 1.0 (0.0-1.0) mg/dL Direct Bilirubin 0.3 (0.0-0.5) mg/dL AST 25 (5-31) U/L ALT 21 (0-31) U/L Alkaline Phosphatase 114 (39-117) U/L C-Reactive Protein 0.87 H (< or = 0.50) mg/dL Total Protein 7.9 (6.5-8.0) g/dL Albumin 4.3 (3.5-5.0) g/dL Radiology Impression Discussion of test interpretation with radiology: I have reviewed the radiologist's reading. External Record Review External record reviewed: Inpatient record, Office record, Outpatient record, Prior outpatient labs, Prior outpatient radiology, Primary care record and Outside ED record Tests considered The following testing was considered but not selected: As above Prescription Management I considered prescription management with: Pain Medication and Antibiotic Chronic Conditions Patient?s care impacted by: Other (CKD, Asthma) Social Determinants Patient?s care significantly limited by Social Determinants of Health including: Other Social Determinant of Health Discharge Plan Discharge Clinical Impression: Submandibular sialolithiasis Patient Disposition: Home, Self-Care Instructions: Sialoadenitis (ED) Additional Instructions: your blood work was reassuring Your CAT scan shows stones in your salivary gland that are causing obstruction AUGMENTIN AN ANTIBIOTIC PLEASE TAKE PRESCRIBED. PLEASE EAT SOUR FOODS/CANDY [place] as an opiate pain medication, take only when pain is severe for the next 3 days. Be aware this has Tylenol mixed in, do not exceed 4 g of Tylenol in 1 day you need to follow-up with ENT on Tuesday as scheduled massage area Warm compresses If the swelling persists/worsens, area turns red, you have difficulty or inability to swallow, any shortness of breath or throat closing sensation return to the ED immediately Prescriptions: New amoxicillin-pot clavulanate 875-125 mg tablet 1 tab PO BID 7 Days Qty: 14 0RF hydrocodone-acetaminophen 5-325 mg tablet 1 tab PO Q8H PRN (Reason: pain, severe) 3 Days Qty: 9 0RF Rx Instructions: Partial Fill upon patient request. No Action (DME) nebulizers [AeroEclipse II Nebulizer] Misc See Rx Instructions .Route Qty: 1 0RF Rx Instructions: As directed hydrocortisone [Anti-Itch (HC)] 1 % cream 1 appl topical TID PRN (Reason: skin irritation) 30 Days Qty: 28.4 0RF albuterol sulfate 2.5 mg /3 mL (0.083 %) solution for nebulization 2.5 mg PO Q4-6H PRN (Reason: for wheezing) Qty: 75 1RF atenolol 50 mg tablet 50 mg PO DAILY Qty: 90 2RF atorvastatin 20 mg tablet 20 mg PO BEDTIME 90 Days Qty: 90 1RF Anoro Ellipta 62.5-25 mcg/actuation blister with device 1 inh inhalation DAILY 30 Days Qty: 60 2RF losartan 50 mg tablet 50 mg PO DAILY 90 Days Qty: 90 1RF Referrals: Ananda Sims [Physician] - 2 days Terri Botello MD [Primary Care Provider] - Stand Alone Forms: Work/School Release Interventions: ED Discharge Assessment Last Done: 01/24/25 13:27 Discharge Date/Time: 01/24/25 13:28 Print Language: Citizen [place]
--- OUTSIDE RECORDS SUMMARY | 2025-01-24 10:50 | XMS_ITS | Clinical Summary ---
Author Organization [facility] [place], Address [address] [place] [address] Phone Care Team Providers Care Museum Informatics Specialist Name Role Phone Terri Botello MD Primary Care Provider [phone] Allergies Active Allergy Reactions Criticality Noted Date [...] Only [facility] [place], [address] [place] [address] Lester Barnes [place] 10/30/2024 Documentation Only [facility] [address] [place] [phone] Lester Barnes [place] from Last 3 Months Family History Medical [...] Visit [facility] [place], [address] [place] [phone] Phillip Huang MD [address] [place] [address] Health Maintenance Due Date Last Done Comments [...] MD LAB URINE ORDERABLES Final Re sult [place] See order comments [place] [address] * Albumin, urine, random (10/26/2024 12:27 PM [...] ORDERABLES Final Re sult Performing Organization Address [facility] Co de Phone Number [place] See order comments [place] [address] * (ABNORMAL) Urinalysis with microscopic (10/26/2024 12:27 PM EST) Color Urine Dark Yellow See or xiang comments Appearance Urine Cloudy See order comments pH Urine 5.5 5.0 - 9.0 See order comments Glucose Urine Negative Negative mg/dL See order comments Blood, Urine Negative Negative See ord er comments Specific [place] Urine 1.025 1.005 - 1.025 See order [...] ORDERABLES Final Re sult Performing Organization Address [facility] de Phone Number [place] See order comments [place] [address] * (ABNORMAL) Urinalysis (10/26/2024 12:27 PM EST) Color Urine Dark Yellow See or xiang comments Appearance Urine Cloudy See order comments pH Urine 5.5 5.0 - 9.0 See order comments Glucose Urine Negative Negative mg/dL See order comments Blood, Urine Negative Negative See ord er comments Specific [place] Urine 1.025 1.005 - 1.025 See order comments Protein Urine 30 (1+)(A) Neg-Trace mg/dL See order comments Ketones, Urine Negative Negative mg/dL See order comments Nitrite, Urine Negative Negative See o rder comments Leukocyte Esterase Urine Negative Negative See order comments 10/26/2024 12:2 7 PM EST 10/26/2024 12:27 PM EST Phillip Huang MD LAB URINE ORDERABLES Final Re sult Performing Organization Address [facility] de Phone Number [place] See order comments [place] [address] * Creatinine (10/26/2024 11:49 AM EST) Pathologist [facility] Creatinine Serum 1.01 0.5 - 1.4 mg/dL See order comments eGFR 55 See order comments Comment: Chronic Kidney Disease: ??Estimated GFR < 60 mL/min/1.73m2 Severe Kidney Disease: ??Estimated GFR < 15 mL/min/1.73m2 10/26/2024 11:4 9 AM EST 10/26/2024 11:49 AM EST Phillip Huang MD LAB BLOOD ORDERABLES Final Re sult Performing Organization Address [facility] de Phone Number [place] See order comments [place] [address] * Cystatin C w/GFR (10/26/2024 11:49 AM EST) Cystatin C 2.16 (H) See order comments Comment: REFERENCE RANGE: 0.52-1.14 mg/L THIS TEST PERFORMED AT: [employer] [facility] [address] [place] [address] [phone] LANDSCAPING MANAGER: YESENIA MONROE MD, PHD eGFR by Cystatin C 25 (L) See order comments Comment: REFERENCE RANGE:>=60 mL/min/1.73mE2 THIS TEST PERFORMED AT: [facility] [address] [place] [phone] LANDSCAPING MANAGER: YESENIA MONROE MD, PHD 10/26/2024 11:4 9 AM EST 10/26/2024 11:49 AM EST us Phillip Huang MD LAB BLOOD ORDERABLES Final Re sult [place] See order comments [place] [address] * (ABNORMAL) CBC and Differential (10/26/2024 11:49 AM EST) WBC 9.5 4.8 - 10.8 X10*3/uL See [...] ORDERABLES Final Re sult Performing Organization Address [facility] Co de Phone Number [place] See order comments [place] [address] * (ABNORMAL) BUN (10/26/2024 11:49 AM EST) BUN 22(H) 9 - 16 mg/dL See order comments 10/26/2024 11:4 9 AM EST 10/26/2024 11:49 AM EST Phillip Huang MD LAB BLOOD ORDERABLES Final Re sult Performing Organization Address [facility] Co de Phone Number [place] See order comments [place] [address] * Calcium (10/26/2024 11:49 AM EST) Calcium 9.3 8.4 - 10.2 mg/dL See order comments 10/26/2024 11:4 9 AM EST 10/26/2024 11:49 AM EST us Phillip Huang MD LAB BLOOD ORDERABLES Final Re sult [place] See order comments [place] [address] * (ABNORMAL) Electrolyte panel (10/26/2024 11:49 AM [...] ORDERABLES Final Re sult Performing Organization Address City/[facility]/ZIP Co de Phone Number [place] See order comments [place] [address] from Last [address] [place] [address] [place] [address] [facility] Care Teams Museum Informatics Specialist Relationship Specialty Start Date End Date Terri Botello MD [address] [place], [place] PCP - General Internal Medicine 06/15/23
--- OUTSIDE RECORDS SUMMARY | 2025-01-24 10:50 | XMS_ITS | Encounter Summary ---
Author Organization [facility] [place], Address [address] [place] [address] Phone Care Team Providers Care Reed Dipper Name Role Phone Terri Botello MD Primary Care Provider [phone] Encounter Details Date Type Department Care Team (Late st Contact Info) Description 10/30/2024 Documentation Only [facility] [address] [place] [phone] [place] [address] [place] [phone] Social History Tobacco Use Types Packs/Day Years [...] Visit [facility] [address] [place] [phone] Phillip Huang MD [address] [place] [address] documented as of this encounter Visit Diagnoses Not on filedocumented in this encounter Care Teams Reed Dipper Relationship Specialty Start Date End Date Terri Botello MD [address] PCP - General Internal Medicine 06/15/23 documented as of this encounter
--- OUTSIDE RECORDS SUMMARY | 2025-01-24 10:50 | XMS_ITS | Encounter Summary ---
Author Organization [facility], Address [address] [place] [address] Phone Care Team Providers Care Frog Catcher Name Role Phone Terri Botello MD Primary Care Provider [phone] Encounter Details Date Type Department Care Team (Late st Contact Info) Description 10/31/2024 Documentation Only [facility] [address] [place] [phone] [place] [address] [place] [phone] Social History Tobacco Use Types Packs/Day Years [...] Visit [facility] [address] [place] [phone] Phillip Huang MD [address] [place] [address] documented as of this encounter Visit Diagnoses Not on filedocumented in this encounter Care Teams Frog Catcher Relationship Specialty Start Date End Date Terri Botello MD [address] PCP - General Internal Medicine 06/15/23 documented as of this encounter
--- OUTSIDE RECORDS SUMMARY | 2025-01-24 10:50 | XMS_ITS | Encounter Summary ---
Author Organization [facility], Address [address] [place] [address] Phone Care Team Providers Care Cut Off Sawyer Name Role Phone Terri Botello MD Primary Care Provider [phone] Encounter Details Date Type Department Care Team (Late st Contact Info) Description 06/28/2023 Documentation Only [facility] [address] [address] Terri Botello MD [address] [place] [address] Social History Tobacco Use Types Packs/Day Years [...] Visit [facility] [address] [place] [phone] Phillip Huang MD [address] [place] [address] [place] [address] documented as of this encounter Visit Diagnoses Not on filedocumented in this encounter Care Teams Cut Off Sawyer Relationship Specialty Start Date End Date Terri Botello MD [address] [place], [place] PCP - General Internal Medicine 06/15/23 documented as of this encounter
[2025-01-24] MEDS: Ketorolac Tromethamine 15 MG/ML VIAL IVPUSH (10:57)
[2025-01-24] MEDS: Ampicillin Sodium/Sulbactam Na 3 GM in 0.9 % Sodium Chloride 100 ML IV (10:57)
[2025-01-24 11:01] LABS: MANUAL DIFF FLAG NO
[2025-01-24 11:03] LABS: Basophils Absolute Auto 0.1 X10*3/uL (0.0-0.2); Basophils Percent Auto 0.8 % (0-2); Eosinophils Absolute Auto 0.6 X10*3/uL (0.0-0.4); Eosinophils Percent Auto 4.8 % (0-4); Hematocrit 41.9 % (37.0-47.0); Hemoglobin 14.2 g/dl (12.0-16.0); Imm Gran Abs Auto 0.03 X10*3/uL (0.00-0.03); Imm Gran Pct Auto 0.2 % (0.0-0.4); Lymphocytes Absolute Auto 4.1 X10*3/uL (1.2-4.9); Lymphocytes Percent Auto 33.9 % (20-40); Mean Corpuscular HGB Conc 33.9 g/dl (31.0-35.0); Mean Corpuscular Hemoglobin 29.6 pg (27.0-33.0); Mean Corpuscular Volume 87.5 fL (80.0-98.0); Mean Platelet Volume 9.7 fL (9.4-12.3); Monocytes Absolute Auto 1.1 X10*3/uL (0.1-1.2); Monocytes Percent Auto 9.4 % (2-11); Neutrophils Absolute Auto 6.2 x10*3/uL (2.0-8.3); Neutrophils Percent Auto 50.9 % (45-73); Platelet Count 327 X10*3/uL (160-400); Red Blood Count 4.79 X10*6/uL (4.20-5.50); Red Cell Distribution Width 13.2 % (11.0-16.0); White Blood Count 12.2 X10*3/uL (4.8-10.8)
[2025-01-24 11:39] LABS: Alanine Aminotransferase 21 U/L (0-31); Albumin Level 4.3 g/dL (3.5-5.0); Alkaline Phosphatase 114 U/L (39-117); Anion Gap 11 (12-20); Aspartate Amino Transferase 25 U/L (5-31); Bilirubin Direct 0.3 mg/dL (0.0-0.5); Blood Urea Nitrogen 22 mg/dL (9-16); C Reactive Protein 0.87 mg/dL (< or = 0.50); Calcium 9.8 mg/dL (8.4-10.2); Carbon Dioxide 27 mmol/L (22-29); Chloride 105 mmol/L (96-108); Creatinine Clr Calc Pharmacy 50.2; Estimated Glomerular Filt Rate > 60; Glucose Random 93 mg/dL (60-115); Potassium 3.8 mmol/L (3.3-5.1); Sodium 139 mmol/L (135-145); Total Protein 7.9 g/dL (6.5-8.0)
[2025-01-24] MEDS: iohexoL 350 MG/ML 100 ML INFUS..BTL IV (11:43)
[2025-01-24 13:27] VITALS: BP 136/86; PULSE 71; RESP 16; TEMP 36.8; O2SAT 99
[2025-01-24 14:46] LABS: Erythrocyte Sedimentation Rate 40 MM/HR (0-20)
== END 2025-01-24 13:28 | disposition home or self-care (01) ==
PROVIDERS: Physician Assistant; Emergency Provider Emergency Medicine; PCP Internal Medicine
DX: K11.5 Sialolithiasis (principal); H92.01 Otalgia, right ear; I10 Essential (primary) hypertension; J45.909 Unspecified asthma, uncomplicated; Z87.891 Personal history of nicotine dependence
CPT/HCPCS: 36415; 70491; 80048; 80076; 83735; 85025; 85652; 86140; 87040; 96365; 96375; 99283; 99284; J0295; J1885; Q9967

== ENCOUNTER → 2025-01-24 10:41 | Outpatient (BNV) | payer BC, SELFPAY | PROVIDERS: Emergency Provider Emergency Medicine; PCP Internal Medicine; Visit Provider Radiology Diagnostic Radiology | DX: K11.5 Sialolithiasis (principal) | CPT/HCPCS: 70491 ==

== ENCOUNTER 2025-03-20 16:20 | Outpatient (AMB) | payer BC, SELFPAY ==
--- OUTSIDE RECORDS SUMMARY | 2025-03-20 16:23 | XMS_ITS | Data Portability ---
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 This surgery requires an incision through the skin with careful dissection around nerves that help control movement of the lower lip as well as nerves that controlled the movement of the tongue. It is expected that there will be some area of decreased sensation around the incision that may be temporary or permanent. Additional risks of scar, infection, fluid collection requiring further treatment are possible. The material removed will be submitted to pathology for further evaluation and additional treatment may be necessary based on these results. After the surgery the skin may be closed with absorbable suture or materials that will require removal in the office. Occasionally a surgical drain is needed to minimize the risk of fluid collection in the area. These drains are removed in the office between 2 to 4 days after surgery. Patient will call surgery scheduling to move forward with procedure. [email or web address] Not available 01/28/2025 15:47:10 Plan of Treatment Reminders Order Date Submit Date Provider Last Modified By Organization Details Last Modified Time Details Appointments SURGERY 180 2024 08:30A M MAXX SPENCE MD Not available Not available Not available Lab None recorded. Referral None recorded. Procedures None recorded. Surgeries excision, submandib ular gland (SURG) 2024 025 [email or web address] Not available 01/28/2025 16:08:54 Imaging None recorded. Medication Orders None recorded. Patient TargetsNo targets recorded. Patient InstructionsNo instructions recorded. Reason for Referral None Reported. Results Created Date Observation Date Name Description Value Unit Range Abnormal Flag Note LastModifiedBy Organization Detail LastModifiedTime 01/29/2001/24/2025 CT, neck, soft tissu e, w/ contr ast No observ ation record ed. [email or web address] [place] [address] (Medical Records) [address] [place], [address], 01/28/2025 15:57:18 01/29/20 25 01/24/2025 CT, neck, soft tissu e, w/ contr ast No observ ation [email or web address] [address] [place], [address], 01/29/2025 12:05:43 Result Notes None recorded. Problems Name Problem SNOMED Code Status Onset Date Resolution Date Notes Provider Name and Address Organization Details Recorded Time Impacted cerumen of bilateral ears 21945236495 70103 Active 2016 Impacted cerumen, bilateral ; Note: Date Diagnosed : 07/14/2017 2:44 PM (H61.23) Not Available [facility] 4 03:29:16 Submandib ular sialolith iasis 738918653 Active 2024 MAXX SPENCE MD [address] [place] [address], [place], [address] , [facility] - [facility] 5 22:33:06 Problem Notes None recorded. Medical Equipment None Reported. Medications Name Sig Start Date Stop Date Status Note LastModified by Organization Details LastModified Time losartan 50 mg tablet TAKE 1 TABLET BY MOUTH DAILY FOR 90 DAYS active Not Available Not Available No t Available amoxicill in 500 mg capsule TAKE 1 CAPSULE BY MOUTH EVERY 8 HOURS 01/28 completed Not Available Not Available Not Available prednison e 10 mg tablet TAKE 4 TABS X2 DAYS THEN 3 TABS FOR 2 DAYS THEN 2 TABS FOR 2 DAYS, THEN 1 TAB FOR 2 DAYS DIRECTED 01/28 completed Not Available Not Available Not Available atorvasta tin 20 mg tablet TAKE 1 TABLET BY MOUTH EVERY DAY AT BEDTIME active Not Available Not Available No t Available potassium chloride ER 8 mEq capsule,e xtended release TAKE 1 CAPSULE BY MOUTH EVERY DAY FOR 5 DAYS active Not Available Not Available No t Available hydrocodo ne 5 mg-acetam inophen 325 mg tablet TAKE 1 TABLET BY MOUTH EVERY 8 HOURS NEEDED FOR SEVERE PAIN FOR 3 DAYS active Not Available Not Available No t Available prednison e 20 mg tablet TAKE 2 TABLETS BY MOUTH DAILY FOR 5 DAYS active Not Available Not Available No t Available atenolol 25 mg tablet 01/28 completed Medicati on ID: [id number] D uration Value: 30 Brand Name: atenolol Send Method: E-Prescr ibed Sub s Allowed: subs OK Speci al Instruct ion: TAKE 1 TABLET BY MOUTH EVERY DAY Medi cationGe nericNam e: atenolol Not Available Not Available Not Available acetamino phen ER 650 mg tablet,ex tended release TAKE 1 TABLET BY MOUTH EVERY 8 HOURS NEEDED FOR PAIN active Not Available Not Available No t Available losartan 25 mg tablet TAKE 1 TABLET BY MOUTH EVERY DAY active Not Available Not Available No t Available cephalexi n 500 mg tablet TAKE 1 TABLET BY MOUTH THREE TIMES A DAY FOR 7 DAYS active Not Available Not Available No t Available hydrochlo rothiazid e 25 mg tablet TAKE 1 TABLET BY MOUTH EVERY DAY 01/28 completed Not Available Not Available Not Available atenolol 50 mg tablet TAKE 1 TABLET BY MOUTH EVERY DAY active Not Available Not Available No t Available amoxicill in 875 mg-potass ium clavulana te 125 mg tablet TAKE 1 TABLET BY MOUTH TWICE A DAY FOR 7 DAYS active Not Available Not Available No t Available Laxative (bisacody l) 5 mg tablet,de layed release TAKE 4 TABS AT NOON THE DAY BEFORE YOUR COLONOSC OPY active Not Available Not Available No t Available Gavilax 17 gram/dose oral powder 238 G ORALLY ONCE DIRECTED BY GASTROEN TEROLOGY DEPARTME NT AT [facility] 01/28 completed Not Available Not Available Not Available [facility] 180 mg tablet 2016 active Medicati on ID: [id number] B rand Name: [facility] Send Method: E-Prescr ibed Sub s Allowed: subs OK Medic ationGen ericName : [facility] Not Available Not Available Not Available Anoro Ellipta 62.5 mcg-25 mcg/actua tion powder for inhalatio n INHALE 1 PUFF INTO THE LUNGS DAILY FOR 30 DAYS active Not Available Not Available No t Available Vitals Date Recorded Body height Body mass index (BMI) Body weight Provider Name and Address Organization Details Last Updated DateTime 01/28/2025 147.32 cm 31.3 kg/m2 49542.86 g CARLO WINSOME [facility] - [facility] 01/28/2025 15:33:04 Social History None recorded. Functional Status None recorded. Mental Status None recorded. Family History Nothing Reported. Medical History No medical history recorded. Gynecological HistoryNo gynecological history recorded. Obstetrics History GPAL:G 0 P 0 0 0 0 Past Encounters Encounter ID Performer Location Encounter Start Date Encounter Closed Date Diagnosis/Indication Diagnosis SNOMED-CT Code Diagnosis ICD10 Code Diagnosis Note [id number] MAXX SPENCE MD [facility] [address] [address] 01/28/2025 15:23:27 01/29/2025 08:38:18 Submandibular sialolithiasis 360893421 K11.5 Right submandibu lar gland with 14 mm stone in main gland with multiple smaller stones. No palpable 2mm stone in distal duct at this time. Clear saliva from right [place] duct Health Concerns Section Related Observation LastModified by Organization Detai ls LastModified Time None Recorded Concern Status LastModified by Organization Details LastModified Time None Recorded Advance Directives Directive None Recorded Payers Insurance Date Sequence Insurance Name Policy Number Policy Jaimes Covered Member ID Jaimes Member ID Guarantor Name 01/28/2025 1 [employer] [id number] Shirley Crawford [id number] Shirley Crawford 01/28/2025 1 [facility] [place] [facility] [id number] Shirley Crawford [id number] Shirley Crawford Notes Date Note Type Note Provider Name and Address Organization Details Recorded Time 01/28/2025 text/html right neck mass 5cmonset 01/21/25has had it in past about 2020 and [facility] and rx cephalexin01/24/[address] [facility] [address] neck and rx augmentin x 7d 04/02/2016 [facility], CT neck with contrastRight submandibular gland 2 stones measuring 6 and 7 mm. Images are not available for review 01/24/2025 [facility], CT neck with contrast2 mm calculus in distal right submandibular duct. Cluster of multiple calculi within proper right submandibular gland, maximum dimension 14 mm with asymmetric enlargement of the gland. 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
[2025-03-20 16:26] VITALS: BP 130/78; BMI 31.8
--- NOTE | 2025-03-20 16:26 | A.OFFPC_ITS ---
Vital Signs 03/20/25 16:26 Height 4 ft 10 in Weight 152 lb BMI 31.8 BP 130/78 Blood Pressure Location Lt brachial Position Sitting Intake Visit Reasons: bp, depression Intake Note: Patient here for a follow up bp, depression High School Guidance Counselor Required: No Accompanied by: Self / Same As Patient Allergies Anesthetics - Amide Type - Select A Allergy (Severe, Verified 03/20/25 16:36) Redness of Skin lisinopril Allergy (Unknown, Verified 03/20/25 16:36) pain in thighs Medication List - Last Reconciled 03/20/25 by Terri Manuel MD albuterol sulfate 2.5 mg (3 mL) PO Q4-6H PRN atenolol 50 mg PO DAILY atorvastatin 20 mg PO BEDTIME 90 days hydrocodone-acetaminophen 5-325 mg 1 tab PO Q8H PRN 3 days hydrocortisone 1% (Anti-Itch (hydrocortisone)) 1 appl topical TID PRN 30 days losartan 50 mg PO DAILY 90 days nebulizers (AeroEclipse II Nebulizer) As directed umeclidinium-vilanterol 62.5-25 mcg/actuation (Anoro Ellipta) 1 inh inhalation DAILY 30 days Tobacco use date assessed: 11/19/24 Fall risk assessment: No Falls in past year Last assessed Fall Risk: 03/20/25 Dental Screening Dental Screen Date: 11/19/24 HPI HPI Comments History of Present Illness Details The patient is a 65-year-old female presenting with concerns regarding a salivary gland stone in the right submandibular gland (sialolithiasis) and management of asthma. She has experienced a salivary gland stone, initially diagnosed by the ENT specialist, which causes discomfort and difficulty swallowing, particularly with specific condiments. Management includes manual massage and using sour candies to stimulate salivary flow. Additionally, the patient reports asthma symptoms, including wheezing, which are exacerbated by allergies. She utilizes Anoro inhaler as maintenance therapy and has a rescue inhaler. Recently, she has run out of her allergy medication, which may contribute to her respiratory symptoms. The patient has a past smoking history and ceased alcohol consumption, which she previously limited to occasional wine. Her medical history includes essential hypertension, managed with atenolol, and hyperlipidemia, managed with atorvastatin. She experienced a reaction to lisinopril, resulting in thigh pain and has allergies to mushrooms and an unspecified anesthetic from a previous gallbladder surgery. [facility] Medical History (Updated 03/20/25 @ 18:41 by Terri Manuel MD) CKD (chronic kidney disease) stage 3, GFR 30-59 ml/min COPD (chronic obstructive pulmonary disease) Asthma Low kidney function Allergic rhinitis Smoking history Sciatic nerve pain Benign essential HTN Surgical History Hx of colonoscopy History of section History of tubal ligation History of cholecystectomy History of tonsillectomy Family History Father Diabetes Hypertension CVD (cardiovascular disease) Mother Diabetes Hypertension CAD (coronary artery disease) Stroke Maternal Aunt Myocardial infarction Paternal Aunt Cancer Paternal Uncle Cancer Son No problems noted. Daughter No problems noted. Sister Diabetes CHF (congestive heart failure) Social History Household Members: None Housing: House Are you a primary client care representative to a significant other at home: No Do you presently have visiting nurse or other home services: No Alcohol intake: former Patient Tobacco Use Status: Former Tobacco user Tobacco use type: Cigarette e-Cigarette/Vaping Use: Never Used Second Hand Smoke Exposure: No Substance Use Type: Marijuana service: No Current occupational status: employed Current occupational exposures/hazards: No Cognitive needs: No Hearing needs: No Vision needs: Yes Questionnaire PHQ-9 Over the last 2 weeks, how often have you been bothered by any of the following problems? 1. Little interest or pleasure in doing things: not at all 2. Feeling down, depressed, or hopeless: several days 3. Trouble falling or staying asleep, or sleeping too much: not at all 4. Feeling tired or having little energy: several days 5. Poor appetite or overeating: not at all 6. Feeling bad about yourself - or that you are a failure or have let yourself or your family down: not at all 7. Trouble concentrating on things, such as reading the newspaper or watching television: not at all 8. Moving or speaking so slowly that other people could have noticed. Or the opposite - being so fidgety or restless that you have been moving around a lot more than usual: not at all 9. Thoughts that you would be better off or of hurting yourself in some way: not at all Total score: 2 Depression Screening Interpretation: Positive Depression Screening Follow-up: Existing condition and Follow-up Visit Requested Depression Screening Done: Yes 91879 - PHQ-9 Billing: Yes Source: Developed by Drs. Leoncio Fuentes, Luara Negrete, Dusty Matias and colleagues, with an educational greta from [employer]. Thrive Questionnaire Date Thrive assessed: 11/12/24 I am a: Patient What is your living situation today?: I have a steady place to live Within the past 12 months, did the food you bought not last and you didn't have the money to get more?: Never true Within the past 12 months, did you worry whether your food would run out before you got money to buy more?: Never true Do you have trouble paying for medicines?: No Do you have trouble getting transportation to medical appointments?: No Do you have trouble paying your heating and electricity bill?: No Do you have trouble taking care of your child, family member or friend?: No Do you have trouble with day-to-day activities such as bathing, preparing meals, shopping, managing finances, etc.?: No Are you currently unemployed and looking for a job?: No Are you interested in more education?: No Please select the resources that you would like help with: None Currently or been in a relationship where the following occur: No concerns reported THRIVE Score: 0 AUDIT C Alcohol Use Questionnaire (AUDIT-C) 1. How often do you have a drink containing alcohol?: Never 3. How often do you have six or more drinks on one occasion?: Never Total Score: 0 Score Reviewed/Action Taken: No RIYA-7 AMB Questionnaire RIYA-7 Date RIYA - 7 assessed: 11/19/24 Feeling nervous, anxious, or on edge: 1 = Several days Not being able to stop or control worryin = Not at all Worrying too much about different things: 0 = Not at all Trouble relaxin = Not at all Being so restless that it is hard to sit still: 0 = Not at all Becoming easily annoyed or irritable: 0 = Not at all Feeling afraid as if something awful might happen: 0 = Not at all Total RIYA-7 score (0-4 normal; 5-9 mild; 10-14 moderate; 15-21 severe): 1 Source: Developed by Drs. Leoncio Fuentes, Laura Negrete, Dusty Matias and colleagues, with an educational greta from [employer]. RIYA-7 Assessment Billing RIYA-7 Assessment Tool: RIYA-7 Assessment 58477 Review of Systems Const All systems reviewed & are unremarkable except as noted in HPI and below Card Denies chest pain at rest, Denies chest pain with activity, Denies edema, Denies irregular heart rhythm, Denies claudication, Denies dyspnea, Denies dyspnea on exertion, Denies orthopnea, Denies paroxysmal nocturnal dyspnea and Denies slow heart rate Resp Denies cough, Denies dyspnea and Denies dyspnea on exertion GI Denies abdominal pain, Denies change in bowel habits, Denies excessive flatus, Denies nausea and Denies vomiting Neuro Denies behavioral changes and Denies lack of coordination Psych Denies behavioral changes Physical exam (Primary Care) Vital Signs: Last Vital Signs BP 130/78 03/20/25 16:26 BMI result Body Mass Index 31.8 Tobacco/Smoking Status: Tobacco use Status Tobacco use date assessed 11/19/24 03/20/25 16:30 Patient Tobacco Use Status Former Tobacco user 03/20/25 16:30 Tobacco use type Cigarette 03/20/25 16:30 e-Cigarette/Vaping Use Never Used 03/20/25 16:30 PHQ-9: PHQ-9 Score PHQ-9: Total score 2 03/20/25 17:10 Depression Screening Interpretation: Positive Depression Screening Follow-up: Existing condition and Follow-up Visit Requested Thrive Assessment: Date of Thrive Assessment Date Thrive assessed 11/12/24 03/20/25 16:30 Currently or been in a relationship where the following occur: No concerns reported Resp Effort & Inspection: normal respiratory effort Auscultation: clear to auscultation bilaterally Cardio Jugular venous distension: no JVD Rate: regular rate Rhythm: regular rhythm Heart sounds: S1 normal heart sound present and S2 normal heart sound present Extrem General: Yes full ROM Coding Level of Care Code Est Pt Level 4 (79172) Complex EM visit Add On G2211 Diagnoses Benign essential HTN I10 Mild persistent asthma J45.30 Mixed hyperlipidemia E78.2 Sialolithiasis of submandibular gland K11.5 Additional Codes RIYA-7 Assessment Billing - RIYA-7 Assessment Tool: RIYA-7 Assessment 11185 ([id number]) PHQ-9 - 23454 - PHQ-9 Billing: Yes ([id number]) Time Spent (min) 23 Assessment & Plan Assessment & Plan (1) Benign essential HTN: Code(s): I10 - Essential (primary) hypertension Category: Medical (2) Mild persistent asthma: Code(s): J45.30 - Mild persistent asthma, uncomplicated Category: Medical (3) Mixed hyperlipidemia: Code(s): E78.2 - Mixed hyperlipidemia Category: Medical (4) Sialolithiasis of submandibular gland: Code(s): K11.5 - Sialolithiasis Category: Medical Plan The patient's management for sialolithiasis involves conservative measures such as gland massages and sour candies, with surgical intervention considered only if breathing difficulties arise. She will continue using Anoro inhaler for COPD, with a rescue inhaler for acute wheezing. Resuming allergy medication is encouraged to prevent exacerbations. Essential hypertension and hyperlipidemia will remain managed with atenolol and atorvastatin. The patient will monitor for respiratory distress or worsening gland symptoms, and follow-up will be scheduled as necessary. Patient was informed and verbally consented to the use of an ambient scribe for clinic note documentation during this visit. I discussed with the patient the management options for her sialolithiasis, emphasizing conservative measures and the circumstances under which surgical intervention would be needed. We reviewed her COPD management, including the importance of maintaining her inhaler regimen and resuming allergy medications to manage symptoms. I also discussed the continued management of her hypertension and hyperlipidemia with current medications. We talked about the importance of monitoring her symptoms and scheduling follow-ups as needed, ensuring she understands the potential need for surgical intervention if her symptoms worsen. Orders: Orders Lipid Panel 4 Months E78.5 - Hyperlipidemia, unspecified Comprehensive [place]. Panel Fast 4 Months N18.30 - Chronic kidney disease, stage 3 unspecified Patient Instructions: - Continue gland massages and use sour candies for sialolithiasis. - Use Anoro inhaler daily for COPD management. - Resume allergy medication to manage wheezing. - Monitor for increased respiratory distress or worsening of gland symptoms. - Follow up as needed based on symptom progression.
== END 2025-03-20 16:48 | disposition home or self-care (01) ==
LOC: HO.HMCH 16:21
PROVIDERS: PCP Internal Medicine; Visit Provider Internal Medicine
DX: I10 Essential (primary) hypertension (principal); J45.30 Mild persistent asthma, uncomplicated; E78.2 Mixed hyperlipidemia; K11.5 Sialolithiasis

== ENCOUNTER → 2025-03-20 16:20 | Outpatient (BNVA) | payer BC, SELFPAY | PROVIDERS: PCP Internal Medicine; Visit Provider Internal Medicine | DX: I10 Essential (primary) hypertension (principal); J45.30 Mild persistent asthma, uncomplicated; E78.2 Mixed hyperlipidemia; K11.5 Sialolithiasis; Z79.899 Other long term (current) drug therapy | CPT/HCPCS: 96127 ==

== ENCOUNTER 2025-08-10 07:10 | Outpatient (REF) | payer BC, SELFPAY ==
--- OUTSIDE RECORDS SUMMARY | 2025-08-10 07:13 | XMS_ITS | Encounter Summary ---
Author Organization [facility], Address [address] [place] [address] Phone Care Team Providers Care [employer] Art Teacher Name Role Phone Terri Botello MD Primary Care Provider [phone] Encounter Details Date Type Department Care Team (Late st Contact Info) Description 10/31/2024 Documentation Only [facility], [address] [address] [place] [address] [place] [address] Social History Tobacco Use Types Packs/Day Years [...] Care Team (Late st Contact Info) Description 11/04/2025 3:30 PM EST Office Visit [facility], [address] [place] [address] Phillip Huang MD [address] [place] [address] documented as of this encounter Visit Diagnoses Not on filedocumented in this encounter Care Teams [employer] Art Teacher Relationship Specialty Start Date End Date Terri Botello MD [address] PCP - General Internal Medicine 06/15/23 documented as of this encounter
--- OUTSIDE RECORDS SUMMARY | 2025-08-10 07:13 | XMS_ITS | Encounter Summary ---
Author Organization [facility], Address [address] [place] [address] Phone Care Team Providers Care Digital Controls Technical Officer Name Role Phone Terri Botello MD Primary Care Provider [phone] Encounter Details Date Type Department Care Team (Late st Contact Info) Description 06/28/2023 Documentation Only [facility], [address] [place] [address] Terri Botello MD [address] [place] [address] Social History Tobacco Use Types Packs/Day Years [...] Visit [facility], [address] [place] [phone] Phillip Huang MD [address] [place] [address] documented as of this encounter Visit Diagnoses Not on filedocumented in this encounter Care Teams Digital Controls Technical Officer Relationship Specialty Start Date End Date Terri Botello MD [address] PCP - General Internal Medicine 06/15/23 documented as of this encounter
--- OUTSIDE RECORDS SUMMARY | 2025-08-10 07:13 | XMS_ITS | Encounter Summary ---
Author Organization [facility], Address [address] [place] [address] Phone Care Team Providers Care Company Truck Driver Name Role Phone Terri Botello MD Primary Care Provider [phone] Encounter Details Date Type Department Care Team (Late st Contact Info) Description 04/18/2025 Documentation Only [facility], [address] [place] [place] [address] Juanita Vieyra [address] [place] [address] Social History Tobacco Use Types Packs/Day [...] Visit [facility], [address] [place] [address] Phillip Huang MD [address] [place] [address] documented as of this encounter Visit Diagnoses Not on filedocumented in this encounter Care Teams Company Truck Driver Relationship Specialty Start Date End Date Terri Botello MD [address] [facility] [address] [place], [place] PCP - General Internal Medicine 06/15/23 documented as of this encounter
--- OUTSIDE RECORDS SUMMARY | 2025-08-10 07:13 | XMS_ITS | Encounter Summary ---
Author Organization [facility], Address [address] [place] [address] Phone Care Team Providers Care Supervisor Yard Name Role Phone Terri Botello MD Primary Care Provider Encounter Details Date Type Department Care Team (Late st Contact Info) Description 04/18/2025 Documentation Only [facility] [place], [address] [place] [address] Juanita Vieyra [address] [place] [address] Social History Tobacco Use Types [...] Visit [facility] [place], [address] [address] [address] [place] [address] Phillip Huang MD [address] [place] [address] documented as of this encounter Visit Diagnoses Not on filedocumented in this encounter Care Teams Supervisor Yard Relationship Specialty Start Date End Date Terri Botello MD 2 [facility] 101 [place], [place] PCP - General Internal Medicine 06/15/23 documented as of this encounter
--- OUTSIDE RECORDS SUMMARY | 2025-08-10 07:13 | XMS_ITS | Encounter Summary ---
Author Organization [facility] [place], Address [address] [place] [address] Phone Care Team Providers Care Lead Front Desk Agent Name Role Phone Terri Botello MD Primary Care Provider Encounter Details Date Type Department Care Team (Late st Contact Info) Description 04/18/2025 Documentation Only [facility] [place], [address] [place] [address] Juanita Vieyra [address] [place] [address] Social History Tobacco Use Types [...] [facility] [place], [address] [facility] [place] [address] Phillip Huang MD [address] [place] [address] documented as of this encounter Visit Diagnoses Not on filedocumented in this encounter Care Teams Lead Front Desk Agent Relationship Specialty Start Date End Date Terri Botello MD 2 [facility] 101 [place], [place] PCP - General Internal Medicine 06/15/23 documented as of this encounter
--- OUTSIDE RECORDS SUMMARY | 2025-08-10 07:13 | XMS_ITS | Encounter Summary ---
Author Organization [facility], Address [address] [place] [address] Phone Care Team Providers Care Appliance Parts Counter Clerk Name Role Phone Terri Botello MD Primary Care Provider [phone] Encounter Details Date Type Department Care Team (Late st Contact Info) Description 10/30/2024 Documentation Only [facility], [address] [place] [address] [place] [address] [place] [address] Social History Tobacco Use Types Packs/Day [...] Visit [facility], [address] [facility] [place] [address] Phillip Huang MD [address] [place] [address] documented as of this encounter Visit Diagnoses Not on filedocumented in this encounter Care Teams Appliance Parts Counter Clerk Relationship Specialty Start Date End Date Terri Botello MD [address] PCP - General Internal Medicine 06/15/23 documented as of this encounter
--- OUTSIDE RECORDS SUMMARY | 2025-08-10 07:13 | XMS_ITS | Data Portability ---
Author Organization [place] [facility], Allergy Address [address] [place] [address] Care Team Providers Care Dredging Inspector Name Role Phone ANT CALVO Primary Care Provider [phone] Assessment Encounter Date Assessment Date Assessment LastModified [...] with procedure. [email or web address] Not available 01/28/2025 15:47:10 04/11/2025 04/11/2025 The patient is doing well following excision of right submandibular gland. The kamini drain was removed today without difficulty. The patient was instructed to call the office for increased swelling, fever, tenderness, or drainage. Wound care was discussed. I recommended avoidance of strenuous activity, heavy lifting or straining for 2 weeks. Pathology is pending and will be followed. Finish antibiotics if prescribed and follow up as scheduled. All questions were answered. [email or web address] Not available 04/11/2025 11:22:37 04/15/2025 04/15/2025 Sutures removed, marginal mandibular nerve is intact. Area with no fluctuance or erythema. Patient may bathe normally. Recommend application of antibiotic ointment twice daily for another week. She may follow-up in 2 to 3 months as she has a new concern of chronic deviated nasal septum [email or web address] Not available 04/15/2025 14:59:33 Plan of Treatment Reminders Order Date Submit Date Provider Last Modified By Organization Details Last Modified Time Details Appointments None recorded. Lab None recorded. Referral None recorded. Procedures None recorded. Surgeries excision, submandibul ar gland (SURG) 2024 025 [email or web address] Not available 16:08:54 Imaging None recorded. Medication Orders None recorded. Patient TargetsNo targets recorded. Patient InstructionsNo instructions recorded. Reason for Referral None Reported. Results Created Date Observation Date Name Description Value Unit Range Abnormal Flag Note LastModifiedBy Organization Detail LastModifiedTime 01/29/2001/24/2025 CT, neck, soft tissu e, w/ contr ast No observ ation record ed. [email or web address] [facility] (Medical Records) [address] [place] [address], [address], 01/28/2025 15:57:18 01/29/20 25 01/24/2025 CT, neck, soft tissu e, w/ contr ast No observ ation record ed. [email or web address] [facility] (Medical Records) [address] [place], [address], 01/29/2025 12:05:43 Result Notes None recorded. Problems Name Problem SNOMED Code Status Onset Date Resolution Date Notes Provider Name and Address Organization Details Recorded Time Impacted cerumen of bilateral ears 35961325818 33435 Active 2016 Impacted cerumen, bilateral ; Note: Date Diagnosed : 07/14/2017 2:44 PM (H61.23) [facility] Available [facility] 03:29:16 Submandib ular sialolith iasis 161842830 Active 2024 MAXX ROBB MD [address] [place],[address], [place], [address] , [facility] - [facility] 22:33:06 Deviated nasal septum 810031323 Active 2024 MAXX ROBB MD 100 [facility] [place],[address], [place], [address] , [facility] - [facility] 14:59:51 Problem Notes None recorded. Procedures Surgical History Date Name Laterality Status Provider Name and Address Organization Details Recorded Time 04/08/20 25 excision of right submandibular gland completed MAXX ROBB MD 100 [facility] [address], [place], [address], [facility] [place] 04/08/2025 15:04:06 04/08/20 25 EXCISION, SUBMANDIBULAR GLAND (SURG) completed Gary Melgar [place] - [facility] [place] 04/16/2025 10:00:57 Imaging Results None recorded. Procedure Notes None recorded. Medical Equipment None Reported. [...] mg tablet 01/28 completed Medicati on ID: [id number] D uration Value: 30 Brand Name: atenolol [...] DIRECTED BY GASTROEN TEROLOGY DEPARTME NT AT [facility] 01/28 completed Not Available Not Available Not Available [facility] 180 mg tablet 2016 active Medicati on ID: [id number] B rand Name: [facility] Send Method: [...] Updated DateTime 01/28/2025 147.32 cm 31.3 kg/m2 91463.86 g CARLO SCHUMACHER [place] - [facility] 01/28/2025 15:33:04 Date Recorded Body height Body mass index (BMI) Body weight Provider Name and Address Organization Details Last Updated DateTime 04/11/2025 147.32 cm 31.3 kg/m2 44027.86 g Alfreda Ramos [place] - [facility] [place] 04/11/2025 10:34:44 Date Recorded Body height Provider Name an d Address Organization Details Last Updated DateTime 04/15/2025 147.32 cm CARLO SCHUMACHER [place] [facility] [place] 04/15/2025 14:39:20 Social History None recorded. Functional Status None recorded. Mental Status None recorded. Family History Nothing Reported. Medical History No medical history recorded. Gynecological HistoryNo gynecological history recorded. Obstetrics History GPAL:G 0 P 0 0 0 0 Past Encounters Encounter ID Performer Location Encounter Start Date Encounter Closed Date Diagnosis/Indication Diagnosis SNOMED-CT Code Diagnosis ICD10 Code Diagnosis IMO Codes Diagnosis Note [id number] MAXX ROBB MD [facility] [address] [address] 01/28/2025 15:23:27 01/29/2025 08:38:18 Submandibular sialolithiasis 781298537 K11.5 Right submandibu lar gland with 14 mm stone in main gland with multiple smaller stones. No palpable 2mm stone in distal duct at this time. Clear saliva from right [place] duct [id number] MAXX ROBB MD [facility] [address] [address] 04/15/2025 14:19:39 04/15/2025 14:59:20 Submandibular sialolithiasis 880731623 K11.5 Deviated nasal septum 12 6000369 J34.2 [id number] TERE MAGUIRE PA-C [facility] [address] [address] 04/11/2025 10:28:58 04/11/2025 11:11:15 Submandibular sialolithiasis 014112973 K11.5 Postoperative visit 3118 95823 Z48.89 [id number] Health Concerns Section Related Observation LastModified by Organization Detai ls LastModified Time None Recorded Concern Status LastModified by Organization Details LastModified Time None Recorded Advance Directives Directive None Recorded Payers Insurance Date Sequence Insurance Name Policy Number Policy Jaimes Covered Member ID Jaimes Member ID Guarantor Name 05/08/2025 1 [id number] [id number] Shirley Crawford [id number] 1 [id number] Shirley Crawford 05/08/2025 1 [place]: [facility] [place] [id number] Shirley Crawford [id number] Shirley Crawford 05/08/2025 PAYMENT PLAN Shirley Crawford 05/08/2025 PAYMENT PLAN Shirley Crawford Notes Date Note Type Note Provider Name and Address Organization Details Recorded Time 01/28/2025 text/html ROS as noted in the HPI right neck mass 5cmonset 01/21/25has had it in past about 2020 and it resolvedwas [facility] at [facility] 01/21/25 and rx cephalexin01/24/[address] [place] [address] neck and rx augmentin x 7d 04/02/2016 [facility], CT neck with contrastRight submandibular gland 2 stones measuring 6 and 7 mm. Images are not available for review 01/24/2025 [facility], CT neck with contrast2 mm calculus in distal right submandibular duct. Cluster of multiple calculi within proper right submandibular gland, maximum dimension 14 mm with asymmetric enlargement of the gland. 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 Robb. She is doing well postoperatively. Reports drainage from kamini that is decreasing in quantity each day. Reports mild sore throat. Has been tolerating soft diet. MAIRA BRADLEY MD [address] [place] [address],[address], [address], [place] - [facility] 04/11/2025 12:22:56 04/15/2025 text/html ROS as noted in the HPI 04/08/25 Clarisse PUGH right submandibular gland excision for large stones.postop kamini removed 04/11no further swelling of neckpathology - Extensive chronic sialoadenitis with fragmented sialoliths MAXX ROBB MD [address] [place] [address], [place], [address], [place] [facility] 04/15/2025 15:00:10 OBGyn Episode No OBEpisode recorded.
--- OUTSIDE RECORDS SUMMARY | 2025-08-10 07:13 | XMS_ITS | Clinical Summary ---
Author Organization [facility] [place], Address [address] [place] [address] [place] [address] Phone Care Team Providers Care Preschool Substitute Teacher Name Role Phone Terri Botello MD Primary Care Provider [phone] Allergies Active Allergy Reactions Criticality Noted Date [...] range Stage 3a chronic kidney disease 12/26/2023 Immunizations Immunization Administration Dates Next Due Influenza, Unspecified 08/06/2024,08/08/2023 Family History Medical History Relation Comments Diabetes [...] Sign Reading Time Taken Comments Blood Pressure 135/77 05/06/2025 3:46 PM EDT Pulse 61 05/06/2025 3:46 PM EDT Temperature - - Respiratory Rate - - Oxygen Saturation - - Inhaled Oxygen Concentration - - Weight - - Height - - Body Mass Index - - Plan of Treatment Upcoming Encounters Date Type Department Care Team (Late st Contact Info) Description 11/04/2025 3:30 PM EST Office Visit [facility] [address] [facility] [place] [phone] Phillip Huang MD [address] [facility] [address] [place] [address] Health Maintenance Due Date Last Done Comments Breast Cancer Screening 1958 Pneumococcal Vaccine: 50+ Years (1 of 2 - PCV) 1977 Colorectal Cancer Screening: Annual FOBT 2007 Colorectal Cancer Screening: Colonoscopy 2007 Colorectal Cancer Screening: Sigmoidoscopy 2007 Influenza Vaccine (#1) 2025 4, 08/08/2023 Hepatitis B Vaccine Aged Out No longe r eligible based on patient's age to complete this topic Insurance [facility] Care Teams Preschool Substitute Teacher Relationship Specialty Start Date End Date Terri Botello MD [address] [place], [place] PCP - General Internal Medicine 06/15/23
[2025-08-10 08:44] LABS: Alanine Aminotransferase 36 U/L (0-31); Albumin Level 4.2 g/dL (3.5-5.0); Alkaline Phosphatase 129 U/L (39-117); Anion Gap 13 (12-20); Aspartate Amino Transferase 29 U/L (5-31); Blood Urea Nitrogen 19 mg/dL (9-16); Calcium 9.3 mg/dL (8.4-10.2); Carbon Dioxide 28 mmol/L (22-29); Chloride 106 mmol/L (96-108); Cholesterol 185 mg/dL (<200); Estimated Glomerular Filt Rate 56; HDL Cholesterol 53 mg/dL (>40); Potassium 4.6 mmol/L (3.3-5.1); Sodium 142 mmol/L (135-145); Total Protein 7.1 g/dL (6.5-8.0); Triglycerides 131 mg/dL (<150)
== END 2025-08-10 07:11 | disposition home or self-care (01) ==
LOC: HO.LAB 07:10
PROVIDERS: PCP Internal Medicine; Visit Provider Internal Medicine
DX: N18.30 Chronic kidney disease, stage 3 unspecified (principal); E78.5 Hyperlipidemia, unspecified
CPT/HCPCS: 36415; 80053; 80061

== ENCOUNTER 2025-09-28 08:13 | Outpatient (REF) | payer BC, SELFPAY ==
--- NOTE | ~2025-09-28 | MM_ITS ---
EXAMINATION: MM SCREENING DIGITAL BREAST TOMOSYNTHESIS, BILATERAL CLINICAL INFORMATION: Screening. Asymptomatic. COMPARISON: Mammography: Comparison is made with available priors TECHNIQUE: Digital breast mammography with tomosynthesis is performed in both the craniocaudal and mediolateral oblique views along with computer-aided detection (CAD). FINDINGS: The breasts are heterogeneously dense, which may obscure small masses. There are no significant masses, abnormal calcifications, or other abnormalities. MM/MM tomosynthesis screening BI IMPRESSION: No mammographic evidence of malignancy. ASSESSMENT: BI-RADS Category 1: Negative RECOMMENDATION: Routine annual mammography screening. 1 year F/U This examination should not preclude the clinical evaluation of a suspicious palpable abnormality. This patient's information was entered into a reminder system with a target due date for their next mammogram. Electronically signed by: Eileen Rojo DO 09/30/2025 03:55 PM [facility]
--- OUTSIDE RECORDS SUMMARY | 2025-09-28 08:16 | XMS_ITS | Data Portability ---
Author Organization [place] - [facility] Address [address] [address] Care Team Providers Care Client Coordinator Name Role Phone ANT CALVO Primary Care [...] up as scheduled. All questions were answered. [email or web address] Not available 04/11/2025 11:22:37 04/15/2025 04/15/2025 Sutures removed, marginal mandibular nerve is intact. Area with no fluctuance or erythema. Patient may bathe normally. Recommend application of antibiotic ointment twice daily for another week. She may follow-up in 2 to 3 months as she has a new concern of chronic deviated nasal septum [email or web address] Not available 04/15/2025 14:59:33 Plan of Treatment Reminders Order Date Submit Date Provider Last Modified By Organization Details Last Modified Time Details Appointments None recorded. Lab None recorded. Referral None recorded. Procedures None recorded. Surgeries excision, submandibul ar gland (SURG) 2024 025 [email or web address] Not available 16:08:54 Imaging None recorded. Medication Orders None recorded. Patient TargetsNo targets recorded. Patient InstructionsNo instructions recorded. Reason for Referral None Reported. Results Created Date Observation Date Name Description Value Unit Range Abnormal Flag Note LastModifiedBy Organization Detail LastModifiedTime 01/29/2001/24/2025 CT, neck, soft tissu e, w/ contr ast No observ ation record ed. [email or web address] [facility] (Medical Records) [address] [place], [address], 01/28/2025 15:57:18 01/29/20 25 01/24/2025 CT, neck, soft tissu e, w/ contr ast No observ ation record ed. [email or web address] [address] [place], [address], 01/29/2025 12:05:43 Result Notes None recorded. Problems Name Problem SNOMED Code Status Onset Date Resolution Date Notes Provider Name and Address Organization Details Recorded Time Impacted cerumen of bilateral ears 58019770385 62648 Active 2016 Impacted cerumen, bilateral ; Note: Date Diagnosed : 07/14/2017 2:44 PM (H61.23) Not Available [facility] 4 03:29:16 Submandib ular sialolith iasis 608682644 Active 2024 MAXX ROBB MD [address] [place],[address], [place], [address] , [facility] - [facility] 22:33:06 Deviated nasal septum 791324633 Active 2024 MAXX ROBB MD 100 [facility] [place],[address], [place] [place], [address] , [facility] - [facility] 14:59:51 Problem Notes None recorded. Procedures Surgical History Date Name Laterality Status Provider Name and Address Organization Details Recorded Time 04/08/20 25 excision of right submandibular gland completed MAXX ROBB MD 100 [facility],[address], [place], [address], [facility] 04/08/2025 15:04:06 04/08/20 25 EXCISION, SUBMANDIBULAR GLAND (SURG) completed Gary Melgar [place] - [facility] 04/16/2025 10:00:57 Imaging Results None recorded. Procedure [...] mg tablet 01/28 completed Medicati on ID: [id number] D uration Value: 30 Brand Name: atenolol [...] DIRECTED BY GASTROEN TEROLOGY DEPARTME NT AT [facility] 01/28 completed Not Available Not Available Not Available [facility] 180 mg tablet 2016 active Medicati on ID: [id number] B rand Name: [facility] Send Method: [...] Updated DateTime 01/28/2025 147.32 cm 31.3 kg/m2 64948.86 g CARLO SCHUMACHER [place] [facility] 01/28/2025 15:33:04 Date Recorded Body height Body mass index (BMI) Body weight Provider Name and Address Organization Details Last Updated DateTime 04/11/2025 147.32 cm 31.3 kg/m2 25401.86 g Alfreda Brent [place] - [facility] [place] 04/11/2025 10:34:44 Date Recorded Body height Provider Name an d Address Organization Details Last Updated DateTime 04/15/2025 147.32 cm CARLO SCHUMACHER [place] - [facility] [place] 04/15/2025 14:39:20 Social History None recorded. Functional Status None recorded. Mental Status None recorded. Family History Nothing Reported. Medical History No medical history recorded. Gynecological HistoryNo gynecological history recorded. Obstetrics History GPAL:G 0 P 0 0 0 0 Past Encounters Encounter ID Performer Location Encounter Start Date Encounter Closed Date Diagnosis/Indication Diagnosis SNOMED-CT Code Diagnosis ICD10 Code Diagnosis IMO Codes Diagnosis Note [id number] MAXX ROBB MD [facility] [address] [address] 01/28/2025 15:23:27 01/29/2025 08:38:18 Submandibular sialolithiasis 806165426 K11.5 Right submandibu lar gland with 14 mm stone in main gland with multiple smaller stones. No palpable 2mm stone in distal duct at this time. Clear saliva from right [place] duct [id number] MAXX ROBB MD [facility] [address] [address] 04/15/2025 14:19:39 04/15/2025 14:59:20 Submandibular sialolithiasis 715034646 K11.5 Deviated nasal septum 12 4477839 J34.2 [id number] TERE MAGUIRE PA-C [facility] [address] [address] 04/11/2025 10:28:58 04/11/2025 11:11:15 Submandibular sialolithiasis 061352238 K11.5 Postoperative visit 5041 84674 Z48.89 [id number] Health Concerns Section Related Observation LastModified by Organization Detai ls LastModified Time None Recorded Concern Status LastModified by Organization Details LastModified Time None Recorded Advance Directives Directive None Recorded Payers Insurance Date Sequence Insurance Name Policy Number Policy Jaimes Covered Member ID Jaimes Member ID Guarantor Name 09/23/2025 1 BONNIE [id number] Shirley Colindres Crawford [id number] 1 [id number] Shirley Colindres Crawford 09/23/2025 1 [place]: [facility] [id number] Shirley Colindres Crawford [id number] Shirley Colindres Crawford 09/23/2025 PAYMENT PLAN Shirley Colindres Crawford 05/08/2025 PAYMENT PLAN Shirley Colindres Crawford 08/16/2025 PAYMENT PLAN Shirley Colindres Crawford Notes Date Note Type Note Provider Name and Address Organization Details Recorded Time 01/28/2025 text/html ROS as noted in the HPI right neck mass 5cmonset 01/21/25has had it in past about 2020 and it [facility] 01/21/25 and rx cephalexin01/24/[address] [place] [address] neck and rx augmentin x 7d 04/02/2016 [facility], CT neck with contrastRight submandibular gland 2 stones measuring 6 and 7 mm. Images are not available for review 01/24/2025 [facility], CT neck with contrast2 mm calculus in distal right submandibular duct. Cluster of multiple calculi within proper right submandibular gland, maximum dimension 14 mm with asymmetric enlargement of the gland. 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 Robb. She is doing well postoperatively. Reports drainage from kamini that is decreasing in quantity each day. Reports mild sore throat. Has been tolerating soft diet. MAIRA BRADLEY MD [address] [place] [address], [address], [place] [facility] [place] 04/11/2025 12:22:56 04/15/2025 text/html ROS as noted in the HPI 04/08/25 Clarisse PUGH right submandibular gland excision for large stones.postop kamini removed 04/11no further swelling of neckpathology - Extensive chronic sialoadenitis with fragmented sialoliths MAXX ROBB MD [address] [place] [address], [place], [address], [place] [facility] 04/15/2025 15:00:10 OBGyn Episode No OBEpisode recorded.
--- OUTSIDE RECORDS SUMMARY | 2025-09-28 08:16 | XMS_ITS | Clinical Summary ---
Author Organization [facility] [place], Address [address] [place] [address] [place] [address] Phone Care Team Providers Care Refuse And Recycling Worker Name Role Phone Terri Botello MD Primary Care Provider [phone] Allergies Active Allergy Reactions Criticality Noted Date [...] Visit [facility] [address] [place] [address] Phillip Huang MD [address] [facility] [place] [address] Health Maintenance Due Date Last Done Comments Breast Cancer Screening 1958 Pneumococcal Vaccine: 50+ Years (1 of 2 - PCV) 1977 Colorectal Cancer Screening: Annual FOBT 2007 Colorectal Cancer Screening: Colonoscopy 2007 Colorectal Cancer Screening: Sigmoidoscopy 2007 Influenza Vaccine (#1) 2025 4, 08/08/2023 Hepatitis B Vaccine Aged Out No longe r eligible based on patient's age to complete this topic Insurance [facility] Care Teams Refuse And Recycling Worker Relationship Specialty Start Date End Date Terri Botello MD [address] [place], [place] PCP - General Internal Medicine 06/15/23
--- OUTSIDE RECORDS SUMMARY | 2025-09-28 08:16 | XMS_ITS | Encounter Summary ---
Author Organization [facility], Address [address] [place] [address] Phone Care Team Providers Care Doper Name Role Phone Terri Botello MD Primary Care Provider [phone] Encounter Details Date Type Department Care Team (Late st Contact Info) Description 06/28/2023 Documentation Only [facility], [address] [place] [address] Terri Botello MD [address] [facility] [facility] [address] [place] [address] Social History Tobacco Use Types Packs/Day Years [...] Visit [facility], [address] [place] [id number] Phillip Huang MD [address] [place] [address] [place] [address] documented as of this encounter Visit Diagnoses Not on filedocumented in this encounter Care Teams Doper Relationship Specialty Start Date End Date Terri Botello MD [address] PCP - General Internal Medicine 06/15/23 documented as of this encounter
--- OUTSIDE RECORDS SUMMARY | 2025-09-28 08:16 | XMS_ITS | Encounter Summary ---
Author Organization [facility], Address [address] [place] [address] Phone Care Team Providers Care Business Development Recruiter Name Role Phone Terri Botello MD Primary Care Provider [phone] Encounter Details Date Type Department Care Team (Late st Contact Info) Description 04/18/2025 Documentation Only [facility], [address] [place] [address] Juanita Vieyra [address] [place] [address] Social History Tobacco Use Types [...] Visit [facility], [address] [place] [address] Phillip Huang MD [address] [place] [address] documented as of this encounter Visit Diagnoses Not on filedocumented in this encounter Care Teams Business Development Recruiter Relationship Specialty Start Date End Date Terri Botello MD 2 [facility] [address] [place], [place] PCP - General Internal Medicine 06/15/23 documented as of this encounter
--- OUTSIDE RECORDS SUMMARY | 2025-09-28 08:16 | XMS_ITS | Encounter Summary ---
Author Organization [facility], Address [address] [place] [address] Phone Care Team Providers Care Battery Repairer Name Role Phone Terri Botello MD Primary Care Provider [phone] Encounter Details Date Type Department Care Team (Late st Contact Info) Description 10/30/2024 Documentation Only [facility], [address] [place] [address] [place] [address] [place] [phone] Social History Tobacco Use Types Packs/Day [...] Visit [facility], [address] [place] [address] Phillip Huang MD [address] [place] [address] documented as of this encounter Visit Diagnoses Not on filedocumented in this encounter Care Teams Battery Repairer Relationship Specialty Start Date End Date Terri Botello MD [address] PCP - General Internal Medicine 06/15/23 documented as of this encounter
--- OUTSIDE RECORDS SUMMARY | 2025-09-28 08:16 | XMS_ITS | Encounter Summary ---
Author Organization [facility], Address [address] [place] [address] Phone Care Team Providers Care Director Of Business Systems Name Role Phone Terri Botello MD Primary Care Provider [phone] Encounter Details Date Type Department Care Team (Late st Contact Info) Description 10/31/2024 Documentation Only [facility], [address] [place] [address] [place] [address] [place] [phone] Social History Tobacco Use Types Packs/Day [...] Visit [facility], [address] [place] [address] Phillip Huang MD [address] [place] [address] documented as of this encounter Visit Diagnoses Not on filedocumented in this encounter Care Teams Director Of Business Systems Relationship Specialty Start Date End Date Terri Botello MD [address] PCP - General Internal Medicine 06/15/23 documented as of this encounter
--- OUTSIDE RECORDS SUMMARY | 2025-09-28 08:16 | XMS_ITS | Encounter Summary ---
Author Organization [facility], Address [address] [place] [address] Phone Care Team Providers Care Manager Linux Name Role Phone Terri Botello MD Primary Care Provider [phone] Encounter Details Date Type Department Care Team (Late st Contact Info) Description 04/18/2025 Documentation Only [facility], [address] [place] [place] [address] Juanita Vieyra [address] [place] [address] Social History Tobacco Use [...] Visit [facility], [address] [address] Phillip Huang MD [address] [place] [address] documented as of this encounter Visit Diagnoses Not on filedocumented in this encounter Care Teams Manager Linux Relationship Specialty Start Date End Date Terri Botello MD 2 [facility] [address] [place], [place] PCP - General Internal Medicine 06/15/23 documented as of this encounter
--- OUTSIDE RECORDS SUMMARY | 2025-09-28 08:16 | XMS_ITS | Encounter Summary ---
Author Organization [facility], Address [address] [place] [address] Phone Care Team Providers Care Taxi Driver Supervisor Name Role Phone Terri Botello MD Primary Care Provider [phone] Encounter Details Date Type Department Care Team (Late st Contact Info) Description 04/18/2025 Documentation Only [facility], [address] [place] [address] Juanita Vieyra [address] [place] [address] Social History Tobacco Use Types [...] Visit [facility], [address] [address] Phillip Huang MD [address] [place] [address] documented as of this encounter Visit Diagnoses Not on filedocumented in this encounter Care Teams Taxi Driver Supervisor Relationship Specialty Start Date End Date Terri Botello MD [address] [facility] [address] [place], [place] PCP - General Internal Medicine 06/15/23 documented as of this encounter
[2025-09-28 09:23] LABS: MANUAL DIFF FLAG NO
[2025-09-28 10:14] LABS: Hematocrit 46.3 % (37.0-47.0); Hemoglobin 14.7 g/dl (12.0-16.0); Imm Gran Abs Auto 0.03 X10*3/uL (0.00-0.03); Imm Gran Pct Auto 0.3 % (0.0-0.4); Lymphocytes Absolute Auto 3.7 X10*3/uL (1.2-4.9); Mean Corpuscular HGB Conc 31.7 g/dl (31.0-35.0); Mean Corpuscular Hemoglobin 28.7 pg (27.0-33.0); Mean Corpuscular Volume 90.3 fL (80.0-98.0); NRBC Abs Auto 0.000 X10*3/uL (0.0-0.012); NRBC Pct Auto 0.0 /100WBC (0.0-0.2); Platelet Count 315 X10*3/uL (160-400); Red Blood Count 5.13 X10*6/uL (4.20-5.50); White Blood Count 11.1 X10*3/uL (4.8-10.8)
[2025-09-28 10:31] LABS: Appearance Urine Turbid; Glucose Urine UA Negative (Negative); PH 5.5 (5.0-9.0); Specific Gravity - Urine 1.020 (1.005-1.025); UMIC TRIGGER UA YES
[2025-09-28 11:00] LABS: Microalbum/Creatinine Ratio Ur 73.6 ug/mg cr (<30)
== END 2025-09-28 08:14 | disposition home or self-care (01) ==
LOC: HO.MAMMO 08:13
PROVIDERS: Absent Provider Internal Medicine Nephrology; PCP Internal Medicine; Visit Provider Internal Medicine
DX: Z12.31 Encounter for screening mammogram for malignant neoplasm of breast (principal); N18.32 Chronic kidney disease, stage 3b
CPT/HCPCS: 36415; 77063; 77067; 81001; 82043; 82570; 85025

== ENCOUNTER → 2025-09-28 08:30 | Outpatient (BNV) | payer BC, SELFPAY | PROVIDERS: Absent Provider Internal Medicine Nephrology; PCP Internal Medicine; Visit Provider Internal Medicine | DX: Z12.31 Encounter for screening mammogram for malignant neoplasm of breast (principal) | CPT/HCPCS: 77063; 77067 ==